=== PATIENT | female | born 1935 | race African-American/Black ===

== ENCOUNTER 2016-11-26 16:00 | Inpatient (IN) | payer MEDICAID, MEDICARE ==
[~2016-11-26] VITALS: Ht 165.1 cm; Wt 113.4 kg
[2016-11-26] MEDS ORDERED: Morphine Sulfate 4mg/ml Inj IVP ONE ×2 (16:15→19:30)
[2016-11-26] MEDS ORDERED: Nitroglycerin 2% oint pkt TOPIC ONE (16:15)
[2016-11-26] MEDS ORDERED: Labetalol 5mg/ml 20ml vial IV ONE (16:15)
[2016-11-26] MEDS ORDERED: Famotidine 20 MG/ 2ML VIAL IVP ONE (16:15)
--- NOTE | 2016-11-26 16:27 | Emergency Room Report ---
History of Present Illness General Chief Complaint: Chest Pain Source: Patient Present Illness HPI The patient presents with epigastric and chest pressure at its severe. It started last night around 2 AM. It was worse this morning. She took her usual medications in the morning which include aspirin. The pain is 8/9. It radiates towards her back. She feels weak with that. She's been having exertional symptoms in the past week. She denies fevers chills cough. She did vomit one time this morning and it looked like oil. There was no blood. She denies any diarrhea or melena. She also denies dysuria. She does have swelling in her legs is worse in the morning. She denies any knee pain or calf tenderness. This is never happened to her before. She's never had cardiac evaluation. Risk factors = hypertension. No smoke or DM. No family history. Allergies: Coded Allergies: No Known Allergies (Verified Allergy, Mild, 11/08/08) Patient History Past Medical History: see triage record Past Surgical History: hysterectomy Social History: Denies: alcohol use, smoking Social History Narrative Born in [facility] Reviewed Nursing Documentation: PMH: Agreed, PSxH: Agreed Nursing Documentation-PMH Hx Cardiac Problems: No Hx Hypertension: Yes Review of Systems All Other Systems: negative except mentioned in HPI Physical Exam Vital Signs Date Time Temp Pulse Resp B/P Pulse Ox O2 Delivery O2 Flow Rate FiO2 11/26/16 16:04 98.1 81 18 238/94 100 Room Air Sp02 EP Interpretation: reviewed, normal General Appearance: GCS 15, mild distress Head: normocephalic Eyes: bilateral eye PERRL, bilateral eye normal inspection ENT: moist mucus membranes Neck: supple Respiratory: chest non-tender, lungs clear, normal breath sounds Cardiovascular #1: systolic murmur - 3/6 holosystolic, edema - 1+ bilat Cardiovascular #2: 2+ radial (R) Gastrointestinal: normal inspection, normal bowel sounds, no mass, non- distended, no guarding, no rebound, tenderness - minimal epigastric, overweight Musculoskeletal: digits/nails normal, normal range of motion, no calf tenderness Neurologic: alert, oriented x3, grossly normal Psychiatric: mood/affect normal Skin: normal inspection, warm/dry Medical Decision Making Diagnostic Impression: Primary Impression: Acute pancreatitis Qualified Codes: K85.90 - Acute pancreatitis without necrosis or infection, unspecified Additional Impression: Chest pain Qualified Codes: R07.9 - Chest pain, unspecified ER Course Patient presents with severe epigastric and chest pain. She is hypertensive at this time. Differential includes acute microinfarction, acute coronary syndrome , aortic dissection, costochondritis, gastritis, pancreatitis amongst others. The pain is fairly severe at this time and we need to aggressively pursue this. She'll be evaluated with a chest x-ray, EKG and laboratory. In addition to the hypertension the possibility of an aneurysm a CT of the perform. My suspicion for pulmonary embolus as well and therefore an angiogram will not be performed. Her high blood pressure needs to be addressed urgently. Wide mediastinum on CXR. CTA negative for aneurism but ? pancreatitis. Lipase elevated. Improved but still with pain. Needs evaluation of pancreatitis and as this is initial onset, needs evaluation as to etiology. Blood pressure better. Admit tele Dr. Wyatt. Laboratory Tests Test 11/26/16 16:20 White Blood Count 8.9 K/UL (4.8-10.8) Red Blood Count 4.86 M/UL (4.20-5.40) Hemoglobin 15.5 G/DL (12.0-16.0) Hematocrit 46.2 % (37.0-47.0) Mean Corpuscular Volume 95 FL (80-99) Mean Corpuscular Hemoglobin 32.0 PG (27.0-31.0) H Mean Corpuscular Hemoglobin Concent 33.7 G/DL (32.0-36.0) Red Cell Distribution Width 12.9 % (11.6-14.8) Platelet Count 126 K/UL (150-450) L Mean Platelet Volume 11.7 FL (6.5-10.1) H Neutrophils (%) (Auto) 67.5 % (45.0-75.0) Lymphocytes (%) (Auto) 18.4 % (20.0-45.0) L Monocytes (%) (Auto) 12.3 % (1.0-10.0) H Eosinophils (%) (Auto) 1.2 % (0.0-3.0) Basophils (%) (Auto) 0.6 % (0.0-2.0) Prothrombin Time 11.1 SEC (9.30-11.50) Prothrombin Time INR 1.1 (0.9-1.1) PTT 26 SEC (23-33) Sodium Level 139 mEQ/L (135-145) Potassium Level 4.3 mEQ/L (3.4-4.9) Chloride Level 94 mEQ/L (98-107) L Carbon Dioxide Level 28 mEQ/L (20-30) Anion Gap 17 (5-15) H Blood Urea Nitrogen 11 mg/dL (7-23) Creatinine 0.9 mg/dL (0.5-0.9) Estimate Glomerular Filtration Rate mL/min (>60) Glucose Level 119 mg/dL (74-106) H Calcium Level 9.7 mg/dL (8.6-10.2) Total Bilirubin 0.6 mg/dL (0.0-1.2) Aspartate Amino Transferase (AST) 19 U/L (5-40) Alanine Aminotransferase (ALT) 8 U/L (3-33) Alkaline Phosphatase 212 U/L (35-104) H Total Creatine Kinase 147 U/L (26-140) H Troponin I < 0.30 ng/mL (<=0.30) Pro-B-Type Natriuretic Peptide 487 pg/mL (0-450) H Total Protein 7.9 g/dL (6.6-8.7) Albumin 4.2 g/dL (3.5-5.2) Globulin 3.7 g/dL Albumin/Globulin Ratio 1.1 (1.0-2.7) Lipase 664 U/L (< 60) H EKG Diagnostic Results Rate: normal Rhythm: NSR ST Segments: no acute changes - LAE, LVH Rhythm Strip Diag. Results EP Interpretation: yes Rhythm: NSR, no PVC's, no ectopy Chest X-Ray Diagnostic Results EP Interpretation: Yes Findings: no consolidation, no effusion, no pneumothorax, other - wide mediatinum, sl cardiolmegally Number of Views: 1 CT/MRI/US Diagnostic Results CT/MRI/US Diagnostic Results : Imaging Test Ordered: CTA abdomen/chest Impression Impression: No evidence of thoracic or abdominal aortic aneurysm or dissection No evidence of acute pulmonary embolus Right pulmonary arterial dilatation raises concern for pulmonary arterial hypertension Cardiomegaly Mild narrowing of the celiac axis, probably secondary to arcuate ligament compression, doubt significance 4.5 cm heavily calcified left renal mass. Suspect that this represents a chronic post inflammatory lesion, but further evaluation with ultrasound should be considered Irregularity of the pancreas with atrophy of the tail and ectasia of the pancreatic duct within the tail. Suspect related to chronic pancreatitis, component of acute pancreatitis cannot be excluded. Correlate with laboratory findings Colonic diverticulosis, without evidence of diverticulitis Small fat-containing umbilical hernia. Increased attenuation of contents raises possibility of inflammation Sclerosis of the sacrum and possibly the adjacent iliac bones, raises possibility of process such as Paget's disease Other findings as described, including degenerative spondylosis, posterior dependent pulmonary parenchymal atelectasis, small bilateral fat-containing Bochdalek hernias, probable liver cysts, old granulomatous disease within the spleen, evidence of prior hysterectomy Last Vital Signs Date Time Temp Pulse Resp B/P Pulse Ox O2 Delivery O2 Flow Rate FiO2 11/27/16 06:46 82 16 Room Air 11/27/16 04:00 97.2 132/72 96 Status: improved Disposition: ADMITTED INPATIENT Condition: Serious Maverick Chen M.D. Nov 26, 2016 16:27
[2016-11-26 16:40] VITALS: BP 230/91
[2016-11-26 16:48] LABS: BASOPHILS % (AUTO) 0.6 % (0.0-2.0); EOSINOPHILS % (AUTO) 1.2 % (0.0-3.0); LYMPHOCYTES % (AUTO) 18.4 % (20.0-45.0); MEAN CORPUSCULAR HGB CONC 33.7 G/DL (32.0-36.0); MEAN CORPUSCULAR VOLUME 95 FL (80-99); MEAN PLATELET VOLUME 11.7 FL (6.5-10.1); MONOCYTES % (AUTO) 12.3 % (1.0-10.0); NEUTROPHILS % (AUTO) 67.5 % (45.0-75.0); PLATELET COUNT 126 K/UL (150-450); RED BLOOD COUNT 4.86 M/UL (4.20-5.40); RED CELL DISTRIBUTION WIDTH 12.9 % (11.6-14.8); WHITE BLOOD COUNT 8.9 K/UL (4.8-10.8)
[2016-11-26 17:00] VITALS: BP 153/61
[2016-11-26 17:04] LABS: INR 1.1 (0.9-1.1); PROTHROMBIN TIME 11.1 SEC (9.30-11.50)
[2016-11-26 17:19] LABS: TROPONIN I < 0.30 ng/mL (<=0.30)
[2016-11-26 17:22] LABS: ALANINE AMINOTRANSFERASE 8 U/L (3-33); ALBUMIN/GLOBULIN RATIO 1.1 (1.0-2.7); ANION GAP 17 (5-15); ASPARTATE AMINO TRANSFERASE 19 U/L (5-40); CALCIUM 9.7 mg/dL (8.6-10.2); CARBON DIOXIDE 28 mEQ/L (20-30); CHLORIDE 94 mEQ/L (98-107); CREATININE 0.9 mg/dL (0.5-0.9); HEMOLYSIS 105; POTASSIUM 4.3 mEQ/L (3.4-4.9); SODIUM 139 mEQ/L (135-145); TOTAL PROTEIN 7.9 g/dL (6.6-8.7)
[2016-11-26 18:32] VITALS: BP 170/70
[2016-11-26] MEDS ORDERED: NKM (18:44)
[2016-11-26 19:55] VITALS: BP 143/53
[2016-11-26] MEDS ORDERED: Ketorolac 30mg Inj IV PRN (21:45)
[2016-11-26] MEDS ORDERED: DuoNeb 0.5-3(2.5)mg/3ml neb HHN PRN (21:45)
[2016-11-26] MEDS ORDERED: Diltiazem 25mg/5ml IV PRN (21:45)
[2016-11-26] MEDS ORDERED: Miralax 17gm pkt ORAL PRN (21:45)
[2016-11-26] MEDS ORDERED: Nitroglycerin Subl 0.4mg tab (Bottle Of 25) SL PRN (22:00)
[2016-11-26 22:03] VITALS: BP 162/80
[2016-11-27] VITALS (7 sets, daily range): BP systolic 132–183; BP diastolic 68–84
[2016-11-27] MEDS: Morphine Sulfate 2mg/ml Inj IVP PRN ×4 (05:22→18:29)
[2016-11-27 07:30] LABS: BASOPHILS % (AUTO) 0.5 % (0.0-2.0); EOSINOPHILS % (AUTO) 6.4 % (0.0-3.0); LYMPHOCYTES % (AUTO) 18.1 % (20.0-45.0); MEAN CORPUSCULAR HEMOGLOBIN 31.3 PG (27.0-31.0); MEAN CORPUSCULAR HGB CONC 31.7 G/DL (32.0-36.0); MEAN CORPUSCULAR VOLUME 99 FL (80-99); MEAN PLATELET VOLUME 10.5 FL (6.5-10.1); MONOCYTES % (AUTO) 13.6 % (1.0-10.0); NEUTROPHILS % (AUTO) 61.4 % (45.0-75.0); PLATELET COUNT 110 K/UL (150-450); RED BLOOD COUNT 4.49 M/UL (4.20-5.40); RED CELL DISTRIBUTION WIDTH 13.5 % (11.6-14.8); WHITE BLOOD COUNT 8.3 K/UL (4.8-10.8)
[2016-11-27 07:43] LABS: INR 1.1 (0.9-1.1); PROTHROMBIN TIME 11.7 SEC (9.30-11.50)
--- NOTE | 2016-11-27 08:04 | Cardiology Progress Note ---
Assessment/Plan Assessment/Plan epigastric pain radiating to the back pancreatitis etiology to be determined htn hx hyperlipidemia hx obeisty mild thrombocytopenia denies cp to me cannot find ekg to reviewed will reorder sinu with non spcific t wave changes trop amylase lipase lft consider gi evla ct performed no report yet available [id number] Objective Last 24 Hour Vital Signs Date Time Temp Pulse Resp B/P Pulse Ox O2 Delivery O2 Flow Rate FiO2 11/27/16 07:59 98.2 84 18 142/68 99 Room Air 11/27/16 06:46 82 16 Room Air 11/27/16 04:00 83 11/27/16 04:00 97.2 89 20 132/72 96 Room Air 11/27/16 00:00 78 11/27/16 00:00 97.7 80 20 146/84 93 Room Air 11/27/16 00:00 97.7 80 20 146/84 93 Room Air 11/26/16 22:03 97.8 78 20 162/80 93 Room Air 11/26/16 20:18 98.2 70 14 143/53 100 Room Air 11/26/16 19:55 98.2 70 14 143/53 100 Room Air 11/26/16 18:32 98.3 69 15 170/70 96 Room Air 11/26/16 17:05 98.1 11/26/16 17:01 70 16 Room Air 11/26/16 17:00 98.1 70 14 153/61 100 Room Air 11/26/16 16:40 98.3 90 15 230/91 100 Room Air 11/26/16 16:34 90 230/91 11/26/16 16:33 230/91 11/26/16 16:04 98.1 81 18 238/94 100 Room Air Intake and Output 11/26/16 11/27/16 19:00 07:00 Intake Total 150 ml Balance 150 ml Other 150 ml # Voids 2 Laboratory Tests Test 11/26/16 16:20 11/27/16 05:00 White Blood Count 8.9 K/UL (4.8-10.8) 8.3 K/UL (4.8-10.8) Red Blood Count 4.86 M/UL (4.20-5.40) 4.49 M/UL (4.20-5.40) Hemoglobin 15.5 G/DL (12.0-16.0) 14.1 G/DL (12.0-16.0) Hematocrit 46.2 % (37.0-47.0) 44.3 % (37.0-47.0) Mean Corpuscular Volume 95 FL (80-99) 99 FL (80-99) Mean Corpuscular Hemoglobin 32.0 PG (27.0-31.0) H 31.3 PG (27.0-31.0) H Mean Corpuscular Hemoglobin Concent 33.7 G/DL (32.0-36.0) 31.7 G/DL (32.0-36.0) L Red Cell Distribution Width 12.9 % (11.6-14.8) 13.5 % (11.6-14.8) Platelet Count 126 K/UL (150-450) L 110 K/UL (150-450) L Mean Platelet Volume 11.7 FL (6.5-10.1) H 10.5 FL (6.5-10.1) H Neutrophils (%) (Auto) 67.5 % (45.0-75.0) 61.4 % (45.0-75.0) Lymphocytes (%) (Auto) 18.4 % (20.0-45.0) L 18.1 % (20.0-45.0) L Monocytes (%) (Auto) 12.3 % (1.0-10.0) H 13.6 % (1.0-10.0) H Eosinophils (%) (Auto) 1.2 % (0.0-3.0) 6.4 % (0.0-3.0) H Basophils (%) (Auto) 0.6 % (0.0-2.0) 0.5 % (0.0-2.0) Prothrombin Time 11.1 SEC (9.30-11.50) 11.7 SEC (9.30-11.50) H Prothromb Time International Ratio 1.1 (0.9-1.1) 1.1 (0.9-1.1) Activated Partial Thromboplast Time 26 SEC (23-33) 27 SEC (23-33) Sodium Level 139 mEQ/L (135-145) Potassium Level 4.3 mEQ/L (3.4-4.9) Chloride Level 94 mEQ/L (98-107) L Carbon Dioxide Level 28 mEQ/L (20-30) Anion Gap 17 (5-15) H Blood Urea Nitrogen 11 mg/dL (7-23) Creatinine 0.9 mg/dL (0.5-0.9) Estimat Glomerular Filtration Rate mL/min (>60) Glucose Level 119 mg/dL (74-106) H Calcium Level 9.7 mg/dL (8.6-10.2) Total Bilirubin 0.6 mg/dL (0.0-1.2) Aspartate Amino Transf (AST/SGOT) 19 U/L (5-40) Alanine Aminotransferase (ALT/SGPT) 8 U/L (3-33) Alkaline Phosphatase 212 U/L (35-104) H Total Creatine Kinase 147 U/L (26-140) H Troponin I < 0.30 ng/mL (<=0.30) Pending Pro-B-Type Natriuretic Peptide 487 pg/mL (0-450) H Total Protein 7.9 g/dL (6.6-8.7) Albumin 4.2 g/dL (3.5-5.2) Globulin 3.7 g/dL Albumin/Globulin Ratio 1.1 (1.0-2.7) Lipase 664 U/L (< 60) H C-Reactive Protein, Quantitative Pending Triglycerides Level Pending Cholesterol Level Pending LDL Cholesterol Pending HDL Cholesterol Pending Cholesterol/HDL Ratio Pending Thyroid Stimulating Hormone (TSH) Pending ROBERTO ARVIZU Nov 27, 2016 08:04
[2016-11-27 08:09] LABS: CHOLESTEROL/HDL RATIO 4.6 (3.3-4.4); CRP QUANT 1.7 mg/dL (< 0.5)
[2016-11-27 08:12] LABS: THYROID STIMULATING HORMONE 1.54 uIU/mL (0.300-4.500)
[2016-11-27 08:26] LABS: TROPONIN I < 0.30 ng/mL (<=0.30)
[2016-11-27 08:27] LABS: ALANINE AMINOTRANSFERASE 5 U/L (3-33); ALBUMIN/GLOBULIN RATIO 0.9 (1.0-2.7); AMYLASE 222 U/L (10-110); ANION GAP 17 (5-15); ASPARTATE AMINO TRANSFERASE 11 U/L (5-40); CALCIUM 9.4 mg/dL (8.6-10.2); CARBON DIOXIDE 28 mEQ/L (20-30); CHLORIDE 95 mEQ/L (98-107); HEMOLYSIS 4; LIPASE 205 U/L (< 60); POTASSIUM 3.4 mEQ/L (3.4-4.9); SODIUM 140 mEQ/L (135-145); TOTAL PROTEIN 6.9 g/dL (6.6-8.7)
[2016-11-27] MEDS: Aspirin Baby 81mg ORAL SCH (08:44)
[2016-11-27] MEDS: Heparin 5000 units/ml inj SUBQ SCH ×2 (08:47→20:55)
[2016-11-27] MEDS ORDERED: Pneumococcal Vaccine 25mcg/0.5ml IM ONE (09:00)
[2016-11-27] MEDS ORDERED: Influenza Virus Vaccine 0.5ml IM ONE (09:00)
--- NOTE | 2016-11-27 11:06 | Diagnostic Imaging Report ---
Clinical Indication:Chest pain Technique: IV administration nonionic contrast. Arterial phase spiral acquisition obtained through the chest, abdomen and pelvis. Multiplanar reconstructions were generated. Total dose length product 1245 mGycm. CTDIvol(s) 8, 64, 18 mGy Comparison: None Findings: Thoracic aorta: There is no evidence of thoracic aortic aneurysm or dissection. There is variant anatomy of common origin of the right brachiocephalic and left common carotid artery. The main pulmonary artery is ectatic, and the right main pulmonary artery is dilated, the latter measuring 3 cm long axis dimension. The heart is enlarged, with four-chamber cardiomegaly. The exam was not protocoled for exclusion of pulmonary embolus, but the pulmonary arteries are fairly well-opacified and no filling defects to suggest acute pulmonary embolus are evident. Abdominal aorta: No evidence of abdominal aortic aneurysm or dissection demonstrated. There is mild narrowing of the celiac origin. This may be due to arcuate ligament compression. Is normal caliber distally. The superior mesenteric artery is patent without significant stenosis. There are multiple left renal arteries, at least 3. These appear to be patent, nonstenotic. There is a single right renal artery which appears to be patent, nonstenotic. The bilateral common iliac arteries are ectatic but not frankly aneurysmal. Thoracic nonvascular: The lungs demonstrate posterior dependent atelectatic changes. They are otherwise clear. No masses, infiltrates, effusions, or congestion. There are small fat-containing Bochdalek hernias bilaterally. No pericardial effusion is demonstrated. No mediastinal or hilar mass or adenopathy. The included thyroid is unremarkable. No axillary or chest wall mass or adenopathy. The bones demonstrate degenerative spondylosis changes. Abdominal pelvic nonvascular: The left kidney demonstrates atrophy of the upper pole, and demonstrates a mass occupying much of the upper pole which demonstrates rim and internal calcifications. This measures 4.5 cm long axis dimension. The right kidney demonstrates a cortical scar as well as subcentimeter low-attenuation lesion which is too small to characterize, most likely benign simple cortical cysts. The liver demonstrates a cyst in segment 4A, as well as subcentimeter low-attenuation lesions in segment 6 which are too small to characterize, most likely benign simple cysts. The gallbladder, bile ducts are unremarkable. There is irregularity to the pancreatic contour, particularly in the tail region, and there is suggestion of ectasia of the pancreatic duct in the tail. There may be some infiltration of the peripancreatic fat. The spleen contains a calcification in the upper pole. The adrenals are unremarkable. No retroperitoneal or mesenteric mass or adenopathy. No pelvic mass or adenopathy. The uterus is absent, presumably postsurgically. The colon demonstrates multiple diverticula. No evidence of diverticulitis. The appendix is not definitely demonstrated, but no findings to suggest acute appendicitis are evident. No free or loculated intraperitoneal air or fluid. There is a small fat-containing umbilical hernia. There is increased attenuation of the contents, raising possibility of inflammation. No small bowel distention. Distal esophagus, stomach, duodenum are unremarkable. The bones demonstrate degenerative spondylosis changes. There is sclerosis of the sacrum which is rather diffuse. There may be some slight sclerosis of the adjacent iliac bones, particular on the left. Impression: No evidence of thoracic or abdominal aortic aneurysm or dissection No evidence of acute pulmonary embolus Right pulmonary arterial dilatation raises concern for pulmonary arterial hypertension Cardiomegaly Mild narrowing of the celiac axis, probably secondary to arcuate ligament compression, doubt significance 4.5 cm heavily calcified lef -- t renal mass. Suspect that this represents a chronic post inflammatory lesion, but further evaluation with ultrasound should be considered Irregularity of the pancreas with atrophy of the tail and ectasia of the pancreatic duct within the tail. Suspect related to chronic pancreatitis, component of acute pancreatitis cannot be excluded. Correlate with laboratory findings Colonic diverticulosis, without evidence of diverticulitis Small fat-containing umbilical hernia. Increased attenuation of contents raises possibility of inflammation Sclerosis of the sacrum and possibly the adjacent iliac bones, raises possibility of process such as Paget's disease Other findings as described, including degenerative spondylosis, posterior dependent pulmonary parenchymal atelectasis, small bilateral fat-containing Bochdalek hernias, probable liver cysts, old granulomatous disease within the spleen, evidence of prior hysterectomy This agrees with the preliminary interpretation provided overnight by Dr. George The CT scanner at [facility] is accredited by the [employer] and the scans are performed using protocols designed to limit radiation exposure to as low as reasonably achievable to attain images of sufficient resolution adequate for diagnostic evaluation.
[2016-11-27] MEDS: Enalaprilat 2.5mg/2ml Inj IV PRN ×2 (11:20→21:03)
--- NOTE | 2016-11-27 12:28 | Diagnostic Imaging Report ---
Indication: Chest pain Technique: One view of the chest Comparison: 12/15/2010 Findings: The heart is upper limits of normal in size. Lungs and pleural spaces are clear. The aorta is tortuous and ectatic. Right paratracheal prominence likely reflects ectatic vasculature Impression: No acute process. Findings as noted
--- NOTE | 2016-11-27 13:10 | Consultation ---
History of Present Illness General Date patient seen: Nov 27, 2016 Chief Complaint: Chest Pain Referring physician: Dr. Rey Reason for Consultation: inpatient management Present Illness HPI 81 year old female with pmhx of hypertension, obesity presented with epigastric and chest pressure at its severe. It started last night around 2 AM yesterday. The pain radiates towards her back. She denies having exertional symptoms in the past week. She did vomit one time. She denies any diarrhea or melena. She also denies dysuria. She does have swelling in her legs is worse in the morning. she had some increased in pancreatic enzymes and admitted to telemetry for chest pain and pancreatitis. Allergies: Coded Allergies: No Known Allergies (Verified Allergy, Mild, 11/08/08) Medication History Scheduled No Known Medications* (NKM - No Known Medications*), 0 ., (Reported) Patient History Healthcare decision maker pt alert and oriented Resuscitation status Full Code Advanced Directive on File Review of Systems All Other Systems: negative except mentioned in HPI Physical Exam General Appearance: WD/WN Lines, tubes and drains: peripheral HEENT: normocephalic, atraumatic Neck: non-tender, normal alignment Respiratory/Chest: chest wall non-tender, lungs clear Cardiovascular/Chest: normal peripheral pulses, normal rate Abdomen: normal bowel sounds Genitourinary/Rectal: normal genital exam Last 24 Hour Vital Signs Date Time Temp Pulse Resp B/P Pulse Ox O2 Delivery O2 Flow Rate FiO2 11/27/16 11:22 98.1 82 18 178/81 97 Room Air 11/27/16 11:20 178/81 11/27/16 08:00 88 11/27/16 07:59 98.2 84 18 142/68 99 Room Air 11/27/16 06:46 82 16 Room Air 11/27/16 04:00 83 11/27/16 04:00 97.2 89 20 132/72 96 Room Air 11/27/16 00:00 78 11/27/16 00:00 97.7 80 20 146/84 93 Room Air 11/27/16 00:00 97.7 80 20 146/84 93 Room Air 11/26/16 22:03 97.8 78 20 162/80 93 Room Air 11/26/16 20:18 98.2 70 14 143/53 100 Room Air 11/26/16 19:55 98.2 70 14 143/53 100 Room Air 11/26/16 18:32 98.3 69 15 170/70 96 Room Air 11/26/16 17:05 98.1 11/26/16 17:01 70 16 Room Air 11/26/16 17:00 98.1 70 14 153/61 100 Room Air 11/26/16 16:40 98.3 90 15 230/91 100 Room Air 11/26/16 16:34 90 230/91 11/26/16 16:33 230/91 11/26/16 16:04 98.1 81 18 238/94 100 Room Air Intake and Output 11/26/16 11/27/16 19:00 07:00 Intake Total 150 ml Balance 150 ml Other 150 ml # Voids 2 Laboratory Tests Test 11/26/16 16:20 11/27/16 05:00 White Blood Count 8.9 K/UL (4.8-10.8) 8.3 K/UL (4.8-10.8) Red Blood Count 4.86 M/UL (4.20-5.40) 4.49 M/UL (4.20-5.40) Hemoglobin 15.5 G/DL (12.0-16.0) 14.1 G/DL (12.0-16.0) Hematocrit 46.2 % (37.0-47.0) 44.3 % (37.0-47.0) Mean Corpuscular Volume 95 FL (80-99) 99 FL (80-99) Mean Corpuscular Hemoglobin 32.0 PG (27.0-31.0) H 31.3 PG (27.0-31.0) H Mean Corpuscular Hemoglobin Concent 33.7 G/DL (32.0-36.0) 31.7 G/DL (32.0-36.0) L Red Cell Distribution Width 12.9 % (11.6-14.8) 13.5 % (11.6-14.8) Platelet Count 126 K/UL (150-450) L 110 K/UL (150-450) L Mean Platelet Volume 11.7 FL (6.5-10.1) H 10.5 FL (6.5-10.1) H Neutrophils (%) (Auto) 67.5 % (45.0-75.0) 61.4 % (45.0-75.0) Lymphocytes (%) (Auto) 18.4 % (20.0-45.0) L 18.1 % (20.0-45.0) L Monocytes (%) (Auto) 12.3 % (1.0-10.0) H 13.6 % (1.0-10.0) H Eosinophils (%) (Auto) 1.2 % (0.0-3.0) 6.4 % (0.0-3.0) H Basophils (%) (Auto) 0.6 % (0.0-2.0) 0.5 % (0.0-2.0) Prothrombin Time 11.1 SEC (9.30-11.50) 11.7 SEC (9.30-11.50) H Prothromb Time International Ratio 1.1 (0.9-1.1) 1.1 (0.9-1.1) Activated Partial Thromboplast Time 26 SEC (23-33) 27 SEC (23-33) Sodium Level 139 mEQ/L (135-145) 140 mEQ/L (135-145) Potassium Level 4.3 mEQ/L (3.4-4.9) 3.4 mEQ/L (3.4-4.9) Chloride Level 94 mEQ/L (98-107) L 95 mEQ/L (98-107) L Carbon Dioxide Level 28 mEQ/L (20-30) 28 mEQ/L (20-30) Anion Gap 17 (5-15) H 17 (5-15) H Blood Urea Nitrogen 11 mg/dL (7-23) 10 mg/dL (7-23) Creatinine 0.9 mg/dL (0.5-0.9) 1.0 mg/dL (0.5-0.9) H Estimat Glomerular Filtration Rate mL/min (>60) mL/min (>60) Glucose Level 119 mg/dL (74-106) H 104 mg/dL (74-106) Calcium Level 9.7 mg/dL (8.6-10.2) 9.4 mg/dL (8.6-10.2) Total Bilirubin 0.6 mg/dL (0.0-1.2) 0.5 mg/dL (0.0-1.2) Aspartate Amino Transf (AST/SGOT) 19 U/L (5-40) 11 U/L (5-40) Alanine Aminotransferase (ALT/SGPT) 8 U/L (3-33) 5 U/L (3-33) Alkaline Phosphatase 212 U/L (35-104) H 172 U/L (35-104) H Total Creatine Kinase 147 U/L (26-140) H Troponin I < 0.30 ng/mL (<=0.30) < 0.30 ng/mL (<=0.30) Pro-B-Type Natriuretic Peptide 487 pg/mL (0-450) H Total Protein 7.9 g/dL (6.6-8.7) 6.9 g/dL (6.6-8.7) Albumin 4.2 g/dL (3.5-5.2) 3.4 g/dL (3.5-5.2) L Globulin 3.7 g/dL 3.5 g/dL Albumin/Globulin Ratio 1.1 (1.0-2.7) 0.9 (1.0-2.7) L Lipase 664 U/L (< 60) H 205 U/L (< 60) H Gamma Glutamyl Transpeptidase 13 U/L (5-36) C-Reactive Protein, Quantitative 1.7 mg/dL (< 0.5) H Triglycerides Level 101 mg/dL (< 150) Cholesterol Level 220 mg/dL (< 200) H LDL Cholesterol 152 mg/dL (60-99) H HDL Cholesterol 48 mg/dL (> 60) Cholesterol/HDL Ratio 4.6 (3.3-4.4) H Amylase Level 222 U/L (10-110) H Thyroid Stimulating Hormone (TSH) 1.540 uIU/mL (0.300-4.500) Height (Feet): 5 Height (Inches): 5.00 Weight (Pounds): 250 Medications Current Medications Medications (Trade) Dose Ordered Sig/Demetrio Route PRN Reason Start Time Stop Time Status Last Admin Dose Admin Acetaminophen (Tylenol) 650 mg Q4H PRN ORAL T>100.5 11/26/16 21:45 12/26/16 21:44 11/27/16 11:50 Albuterol/ Ipratropium (DuoNeb 0.5-3(2.5)mg/3ml) 3 ml Q4H PRN HHN Shortness of Breath 11/26/16 21:45 12/01/16 21:44 Aspirin (ASA) 162 mg DAILY ORAL 11/27/16 09:00 12/27/16 08:59 11/27/16 08:44 Diltiazem HCl (Cardizem) 10 mg EVERY HOUR PRN IV heart rate more than 120, 11/26/16 21:45 12/26/16 21:44 Enalaprilat (Vasotec) 2.5 mg Q6H PRN IV sbp more than 160 11/26/16 21:45 12/26/16 21:44 11/27/16 11:20 Heparin Sodium (Porcine) (Heparin 5000 units/ml) 5,000 units EVERY 12 HOURS SUBQ 11/27/16 09:00 12/27/16 08:59 11/27/16 08:47 Morphine Sulfate (Morphine Sulfate) 2 mg Q4H PRN IVP Moderate Pain (Pain Scale 4-6) 11/27/16 12:00 12/04/16 11:59 11/27/16 12:10 Morphine Sulfate (Morphine Sulfate) 4 mg Q4H PRN IVP Severe Pain (Pain Scale 7-10) 11/27/16 12:00 12/04/16 11:59 Nitroglycerin (Ntg) 0.4 mg Q5MIN X 3 DOSES PRN SL Prn Chest Pain 11/26/16 22:00 12/26/16 21:59 Ondansetron HCl (Zofran) 4 mg Q6H PRN IVP Nausea & Vomiting 11/26/16 21:45 12/26/16 21:44 Pantoprazole (Protonix) 40 mg DAILY ORAL 11/27/16 09:00 12/27/16 08:59 11/27/16 08:44 Polyethylene Glycol (Miralax) 17 gm DAILYPRN PRN ORAL Constipation 11/26/16 21:45 12/26/16 21:44 Temazepam (Restoril) 15 mg HSPRN PRN ORAL Insomnia 11/26/16 21:45 12/03/16 21:44 Assessment/Plan Problem List: (1) Chest pain ICD Codes: R07.9 - Chest pain, unspecified SNOMED: 82551285 (2) ACS (acute coronary syndrome) ICD Codes: I24.9 - Acute ischemic heart disease, unspecified SNOMED: 622501898 (3) Costochondritis ICD Codes: M94.0 - Chondrocostal junction syndrome [Tietze] SNOMED: 22554497 (4) Acute pancreatitis ICD Codes: K85.90 - Acute pancreatitis without necrosis or infection, unspecified SNOMED: 532125263 Assessment/Plan NPO IV fluids cardiac work up f/u on lipase and amylase ELÍAS ALFREDO Nov 27, 2016 13:10
[2016-11-27] MEDS: D5 1/2NS w/KCl 20mEq 1,000 ML IV SCH (13:59)
--- NOTE | 2016-11-27 14:03 | GI Initial Consult Note ---
Jauregui,Julienne Roman N.P. 11/27/16 1403: History of Present Illness General Date patient seen: Nov 27, 2016 Time patient seen: 14:02 Reason for Hospitalization: Chest Pain Referring physician: Dr. Rey Reason for Consultation: inpatient management Present Illness HPI The patient presents with epigastric and chest pressure at its severe. It started last night around 2 AM. It was worse this morning. She took her usual medications in the morning which include aspirin. The pain is 8/9. It radiates towards her back. She feels weak with that. She denies having exertional symptoms in the past week. She denies fevers chills cough. She did vomit one time this morning and it looked like oral. There is no blood. She denies any diarrhea or melena. She also denies dysuria. She does have swelling in her legs is worse in the morning. She denies any knee pain or calf tenderness. GI CONSULT: HPI as noted above. GI consulted for abdominal pain 2/2 to pancreatitis. Pt seen on floor, awake A&Ox4 NAD c/o of 5/10 abdominal pain ( originally 10/10) to the epigastric region. She presents today with abdominal pain for approximately 3 days. C/o of emesis x 1 yesterday, denies any hematemesis or coffee grounds. First episode of abdominal pain. CBC unremarkable. Elevated lipase 600+. Elevated alkaline phos and hypoalbuminemia. PanCT reveals acute vs chronic pancreatitis, see full report below. Unknown history of endoscopic procedures. 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 Suspect that this represents a chronic post inflammatory lesion, but further evaluation with ultrasound should be considered Irregularity of the pancreas with atrophy of the tail and ectasia of the pancreatic duct within the tail. Suspect related to chronic pancreatitis, component of acute pancreatitis cannot be excluded. Correlate with laboratory findings Colonic diverticulosis, without evidence of diverticulitis Small fat-containing umbilical hernia. Increased attenuation of contents raises possibility of inflammation Sclerosis of the sacrum and possibly the adjacent iliac bones, raises possibility of process such as Paget's disease Other findings as described, including degenerative spondylosis, posterior dependent pulmonary parenchymal atelectasis, small bilateral fat-containing Bochdalek hernias, probable liver cysts, old granulomatous disease within the spleen, evidence of prior hysterectomy Home Meds Active Scripts Aspirin* (ASPIRIN*) 81 Mg Tab.chew, 162 MG ORAL DAILY for 30 Days, TAB Prov:ZARRABI,MIRALI 11/30/16 Amlodipine Besylate (Norvasc) 5 Mg Tablet, 5 MG ORAL Q12HR for 30 Days, TAB Prov:ZARRABI,MIRALI 11/30/16 Reported Medications Amlodipine Besylate (Norvasc) 10 Mg Tablet, 10 MG ORAL DAILY, TAB 11/30/16 No Known Medications* (NKM - No Known Medications*) ., 0 ., 0 Refills 11/26/16 Allergies: Coded Allergies: No Known Allergies (Verified Allergy, Mild, 11/08/08) Patient History History Provided By: Patient, Medical Record PMH Narrative Hx Cardiac Problems: No Hx Hypertension: Yes Social History: Denies: alcohol use, drug use, other, smoking Review of Systems All Other Systems: negative except mentioned in HPI Physical Exam Vital Signs Date Time Temp Pulse Resp B/P Pulse Ox O2 Delivery O2 Flow Rate FiO2 11/26/16 16:04 98.1 81 18 238/94 100 Room Air Labs Laboratory Tests Test 11/26/16 16:20 11/27/16 05:00 White Blood Count 8.9 K/UL (4.8-10.8) 8.3 K/UL (4.8-10.8) Red Blood Count 4.86 M/UL (4.20-5.40) 4.49 M/UL (4.20-5.40) Hemoglobin 15.5 G/DL (12.0-16.0) 14.1 G/DL (12.0-16.0) Hematocrit 46.2 % (37.0-47.0) 44.3 % (37.0-47.0) Mean Corpuscular Volume 95 FL (80-99) 99 FL (80-99) Mean Corpuscular Hemoglobin 32.0 PG (27.0-31.0) H 31.3 PG (27.0-31.0) H Mean Corpuscular Hemoglobin Concent 33.7 G/DL (32.0-36.0) 31.7 G/DL (32.0-36.0) L Red Cell Distribution Width 12.9 % (11.6-14.8) 13.5 % (11.6-14.8) Platelet Count 126 K/UL (150-450) L 110 K/UL (150-450) L Mean Platelet Volume 11.7 FL (6.5-10.1) H 10.5 FL (6.5-10.1) H Neutrophils (%) (Auto) 67.5 % (45.0-75.0) 61.4 % (45.0-75.0) Lymphocytes (%) (Auto) 18.4 % (20.0-45.0) L 18.1 % (20.0-45.0) L Monocytes (%) (Auto) 12.3 % (1.0-10.0) H 13.6 % (1.0-10.0) H Eosinophils (%) (Auto) 1.2 % (0.0-3.0) 6.4 % (0.0-3.0) H Basophils (%) (Auto) 0.6 % (0.0-2.0) 0.5 % (0.0-2.0) Prothrombin Time 11.1 SEC (9.30-11.50) 11.7 SEC (9.30-11.50) H Prothromb Time International Ratio 1.1 (0.9-1.1) 1.1 (0.9-1.1) Activated Partial Thromboplast Time 26 SEC (23-33) 27 SEC (23-33) Sodium Level 139 mEQ/L (135-145) 140 mEQ/L (135-145) Potassium Level 4.3 mEQ/L (3.4-4.9) 3.4 mEQ/L (3.4-4.9) Chloride Level 94 mEQ/L (98-107) L 95 mEQ/L (98-107) L Carbon Dioxide Level 28 mEQ/L (20-30) 28 mEQ/L (20-30) Anion Gap 17 (5-15) H 17 (5-15) H Blood Urea Nitrogen 11 mg/dL (7-23) 10 mg/dL (7-23) Creatinine 0.9 mg/dL (0.5-0.9) 1.0 mg/dL (0.5-0.9) H Estimat Glomerular Filtration Rate mL/min (>60) mL/min (>60) Glucose Level 119 mg/dL (74-106) H 104 mg/dL (74-106) Calcium Level 9.7 mg/dL (8.6-10.2) 9.4 mg/dL (8.6-10.2) Total Bilirubin 0.6 mg/dL (0.0-1.2) 0.5 mg/dL (0.0-1.2) Aspartate Amino Transf (AST/SGOT) 19 U/L (5-40) 11 U/L (5-40) Alanine Aminotransferase (ALT/SGPT) 8 U/L (3-33) 5 U/L (3-33) Alkaline Phosphatase 212 U/L (35-104) H 172 U/L (35-104) H Total Creatine Kinase 147 U/L (26-140) H Troponin I < 0.30 ng/mL (<=0.30) < 0.30 ng/mL (<=0.30) Pro-B-Type Natriuretic Peptide 487 pg/mL (0-450) H Total Protein 7.9 g/dL (6.6-8.7) 6.9 g/dL (6.6-8.7) Albumin 4.2 g/dL (3.5-5.2) 3.4 g/dL (3.5-5.2) L Globulin 3.7 g/dL 3.5 g/dL Albumin/Globulin Ratio 1.1 (1.0-2.7) 0.9 (1.0-2.7) L Lipase 664 U/L (< 60) H 205 U/L (< 60) H Gamma Glutamyl Transpeptidase 13 U/L (5-36) C-Reactive Protein, Quantitative 1.7 mg/dL (< 0.5) H Triglycerides Level 101 mg/dL (< 150) Cholesterol Level 220 mg/dL (< 200) H LDL Cholesterol 152 mg/dL (60-99) H HDL Cholesterol 48 mg/dL (> 60) Cholesterol/HDL Ratio 4.6 (3.3-4.4) H Amylase Level 222 U/L (10-110) H Thyroid Stimulating Hormone (TSH) 1.540 uIU/mL (0.300-4.500) General Appearance: well appearing, no apparent distress, alert Head: normocephalic EENT: normal ENT inspection Neck: supple Respiratory: normal breath sounds, no respiratory distress Cardiovascular: normal rate Gastrointestinal: normal inspection, non tender, soft Neurologic: normal inspection, alert, oriented x3, responsive Psychiatric: normal inspection Skin: normal inspection, normal color, no rash, warm/dry Lymphatic: normal inspection, no adenopathy Current Medications Current Medications Medications (Trade) Dose Ordered Sig/Demetrio Route PRN Reason Start Time Stop Time Status Last Admin Dose Admin Acetaminophen (Tylenol) 650 mg Q4H PRN ORAL T>100.5 11/26/16 21:45 12/26/16 21:44 11/27/16 11:50 Albuterol/ Ipratropium (DuoNeb 0.5-3(2.5)mg/3ml) 3 ml Q4H PRN HHN Shortness of Breath 11/26/16 21:45 12/01/16 21:44 Aspirin (ASA) 162 mg DAILY ORAL 11/27/16 09:00 12/27/16 08:59 11/27/16 08:44 Dextrose/ Electrolytes (D5 0.45%NS W/ KCl 20mEq) 1,000 ml @ 75 mls/hr [id number] IV 11/27/16 14:00 12/27/16 13:59 11/27/16 13:59 Diltiazem HCl (Cardizem) 10 mg EVERY HOUR PRN IV heart rate more than 120, 11/26/16 21:45 12/26/16 21:44 Enalaprilat (Vasotec) 2.5 mg Q6H PRN IV sbp more than 160 11/26/16 21:45 12/26/16 21:44 11/27/16 11:20 Heparin Sodium (Porcine) (Heparin 5000 units/ml) 5,000 units EVERY 12 HOURS SUBQ 11/27/16 09:00 12/27/16 08:59 11/27/16 08:47 Morphine Sulfate (Morphine Sulfate) 4 mg Q4H PRN IVP Severe Pain (Pain Scale 7-10) 11/27/16 12:00 12/04/16 11:59 Morphine Sulfate 2 mg 2 mg Q4H PRN IVP Moderate Pain (Pain Scale 4-6) 11/27/16 12:00 12/04/16 11:59 11/27/16 12:10 Nitroglycerin (Ntg) 0.4 mg Q5MIN X 3 DOSES PRN SL Prn Chest Pain 11/26/16 22:00 12/26/16 21:59 Ondansetron HCl (Zofran) 4 mg Q6H PRN IVP Nausea & Vomiting 11/26/16 21:45 12/26/16 21:44 Pantoprazole (Protonix) 40 mg DAILY ORAL 11/27/16 09:00 12/27/16 08:59 11/27/16 08:44 Polyethylene Glycol (Miralax) 17 gm DAILYPRN PRN ORAL Constipation 11/26/16 21:45 12/26/16 21:44 Temazepam (Restoril) 15 mg HSPRN PRN ORAL Insomnia 11/26/16 21:45 12/03/16 21:44 GI: Plan Problems: (1) Alkaline phosphatase elevation (2) Hypoalbuminemia (3) Morbidly obese (4) Acute pancreatitis Plan panCT reviewed >> Irregularity of the pancreas with atrophy of the tail and ectasia of the pancreatic duct within the tail. Suspect related to chronic pancreatitis, component of acute pancreatitis cannot be excluded. bowel rest >> maintain NPO + IVF's adv diet as tolerated zofran prn pain mgmt abx monitor lipase levels ppi fu labs Discussed with Dr. Allison. Thank you for referring this patient, we will follow. ISIDRO ALLISON 12/02/16 1223: History of Present Illness General Reason for Hospitalization: Chest Pain Present Illness Home Meds Active Scripts Aspirin* (ASPIRIN*) 81 Mg Tab.chew, 162 MG ORAL DAILY for 30 Days, TAB Prov:ZARRABI,MIRALI 11/30/16 Amlodipine Besylate (Norvasc) 5 Mg Tablet, 5 MG ORAL Q12HR for 30 Days, TAB Prov:ZARRABI,MIRALI 11/30/16 Reported Medications Amlodipine Besylate (Norvasc) 10 Mg Tablet, 10 MG ORAL DAILY, TAB 11/30/16 No Known Medications* (NKM - No Known Medications*) ., 0 ., 0 Refills 11/26/16 Allergies: Coded Allergies: No Known Allergies (Verified Allergy, Mild, 11/08/08) GI: Plan Plan The patient was seen and examined at bedside and all new and available data was reviewed in the patients chart. I agree with the above findings, impression and plan. (Patient seen earlier today. Signature stamp does not reflect patient encounter time.). -Amrita Peterson MDh Roman Palacios Nov 27, 2016 14:03 ISIDRO ALLISON Dec 02, 2016 12:23
[2016-11-27] MEDS: Morphine Sulfate 4mg/ml Inj IVP PRN ×2 (16:27→22:54)
--- NOTE | 2016-11-27 17:24 | History & Physical ---
History and Physical History & Physicial Dictated for Int Med-Dr Wyatt no. [id number]. SAMY MOSHER Nov 27, 2016 17:24
--- NOTE | 2016-11-27 21:18 | Consultation ---
DATE OF CONSULTATION: 11/27/2016 CARDIOLOGY CONSULTATION REASON FOR CONSULTATION: Basically abdominal pain, it sounds like. HISTORY OF PRESENT ILLNESS: This is an elderly female who presented to the emergency room, I guess yesterday afternoon, epigastric pain is what she came in with, the pain goes straight through to her back. It has been like that since yesterday. She did vomit on one occasion. When she came to the emergency room, she was also complaining at the same time that she has pressure in her chest but on my questioning she denies any pain, it is only in her epigastric area and the right side of her abdomen that radiates to her back. She did take some aspirin apparently. She did not feel good and she finally presented to the emergency room. She does not have any PND or orthopnea. No palpitations. No dizziness or lightheadedness. No pain, pressure or tightness in her chest at this time and she does not have any vomiting of blood. She does not have any bloody stools or black stools. PAST MEDICAL HISTORY: Positive for high cholesterol and high blood pressure, both of which she stopped taking medication approximately six months ago, but she has taken some herbal material. She denies any heart attack, cancer, stroke, hepatitis, tuberculosis, asthma, or emphysema. No ulcers. No kidney problems, liver problems, thyroid problems, anemia, or arthritis. ALLERGIES: She is not allergic to any medication. SOCIAL HISTORY: She does not smoke. Does not drink alcoholic beverages. No drug use. REVIEW OF SYSTEMS: Genitourinary: Negative. Pulmonary: Negative, but she has had a cold recently. Constitutional: Negative. Neurologic: Negative. PHYSICAL EXAMINATION: GENERAL: An elderly female in no apparent respiratory distress. NECK: Supple. No jugular venous distention. LUNGS: Clear to auscultation and percussion. CARDIAC: S1 is normal. S2 is normal. Regular rate and rhythm. She does have a systolic ejection murmur in the aortic band. ABDOMEN: Soft. There is tenderness in the epigastric area to palpation on the right side of the abdomen as well. There is no guarding. No rigidity. No rebound tenderness. EXTREMITIES: No clubbing, cyanosis, nor is there any edema. NEUROLOGIC: She is awake, alert, and responsive, in no apparent distress. LABORATORY AND DIAGNOSTIC DATA: Laboratory values, white count of 8.2 with hemoglobin 14.1, and platelet count of 110,000 down from 126,000 previously yesterday. Sodium 139, potassium 4.3, chloride 94, bicarbonate 28, BUN 11, creatinine 0.6, and glucose of 119. Alkaline phosphatase is 214. CK of 147. Troponins negative on two separate occasions. Lipase of 664. There is no EKG for me to review unfortunately and I am not able to locate the EKG or any other laboratories. Because of the hypertension, the emergency physician did order a CT scan, apparently minimal reading available here shows widened mediastinum, but CTA was negative for an aneurysm, but questionably positive for pancreatitis. Lipase was elevated and the patient was admitted to the hospital. The emergency room physician's note indicates that the EKG by them shows no ST-segment changes, left atrial enlargement, and left ventricular hypertrophy. Chest x-ray, no consolidation, no pleural effusion, no pneumothorax, widening mediastinum, and slight cardiomegaly, this is per the emergency room physician's note, I am not able to review the x-rays. ASSESSMENT AND PLAN: 1. Epigastric pain, possibilities include cholecystitis, pancreatitis, and gastritis. 2. Hypertension history. 3. Hyperlipidemia. 4. Obesity. 5. Mild thrombocytopenia. Dr. Xie, this patient was seen in cardiac consultation and signs and symptoms basically point towards the gastrointestinal system with possibility of pancreatitis as a high likelihood in light of the significantly elevated lipase. I will recommend keeping the patient NPO and consider gastrointestinal evaluation and further testing. She has already had a CT scan. Unfortunately, the CT report is not available but maybe would shed light on the possibility of gallbladder problems once the report is available. I have ordered an EKG to be performed. I will repeat the cardiac enzymes as a matter of routine in light of the fact that she has had the complaint of chest pressure when she came into the emergency room, but again she denies those symptoms to me at this time. Shant Sr M.D. DR: MYRIAM JOB#: [id number] CC:
[2016-11-27 21:39] LABS: TROPONIN I < 0.30 ng/mL (<=0.30)
--- NOTE | 2016-11-27 21:49 | History and Physical Report ---
DATE OF ADMISSION: 11/26/2016 CHIEF COMPLAINT: The patient is an 81-year-old female, who presents with chief complaint of epigastric pain. HISTORY OF PRESENT ILLNESS: Began on Friday, November 25, 2016. The patient began to experience epigastric pain. The patient states that the pain radiates to her chest. The patient states that the pain was constant. The patient presented to [facility]. The patient was found to have acute pancreatitis. The patient was admitted for acute pancreatitis to rule out gallstone pancreatitis. PAST MEDICAL HISTORY: Significant for, 1. Hypertension. 2. Hypercholesterolemia. PAST SURGICAL HISTORY: Significant for total abdominal hysterectomy. CURRENT MEDICATIONS: 1. An unknown antihypertensive medication. 2. An unknown anti-lipid medication. ALLERGIES: No known drug allergies. SOCIAL HISTORY: The patient is a and lives with her grown daughter, who was present during the interview. The patient denies tobacco or alcohol use. REVIEW OF SYSTEMS: Constitutional: The patient denies weight loss or weight gain. The patient denies fevers or chills. HEENT: The patient denies ear or throat pain. Cardiovascular: The patient denies palpitations and chest pain. Chest: The patient denies palpitations. The patient admits to chest pain as above. Abdomen: The patient complains of epigastric pain as above. The patient denies nausea, vomiting, diarrhea, or constipation. Genitourinary: The patient denies dysuria or increased frequency of urination. Neuromuscular: The patient denies seizures or generalized weakness. PHYSICAL EXAMINATION: VITAL SIGNS: Temperature 98.1 degrees, respirations 18, pulse 82, and blood pressure 170/81. GENERAL: The patient is well-developed, well-nourished, slightly obese, female, in no apparent distress. HEENT: Eyes, pupils are equal and responsive to light and accommodation. Extraocular movements are intact. NECK: Supple without lymphadenopathy. CHEST: Lungs are clear to auscultation bilaterally without wheezes or rales. CARDIOVASCULAR: Regular rhythm and rate. S1 and S2 are normal without murmurs, rubs, or gallops. ABDOMEN: Soft and distended with decreased bowel sounds. There is pain to palpation in the bilateral upper quadrants. There is voluntary guarding noted. There is no rebound noted. EXTREMITIES: Negative for clubbing, cyanosis, or edema. RECTAL: Refused. GENITALIA: Refused. NEUROLOGICAL: Cranial nerves II through XII are grossly intact without focal deficits. Motor strength is 5/5 bilaterally. Deep tendon reflexes are 2+ plantar. LABORATORY STUDIES: WBC 8.9, hemoglobin 15.5, hematocrit 46.3, and platelets 126,000. Sodium 140, potassium 3.4, chloride 95, CO2 28, BUN 10, creatinine 1.0, and glucose 104. Amylase elevated at 122. Lipase elevated at 664. ASSESSMENT: This is an 81-year-old female. 1. Epigastric pain. 2. Acute pancreatitis. 3. Hypertension. 4. Hypercholesterolemia. TREATMENT: 1. Epigastric pain/acute pancreatitis. A Gastroenterology consultation was obtained with Dr. Jacky Schwartz. A CT scan of the abdomen is pending. We will follow recommendations of GI. 2. Chest pain. A Cardiology consultation was obtained with Dr. Shant Sr. 3. Hypercholesterolemia. The patient is currently NPO. The patient will be started on Lipitor. 4. Hypertension. The patient is currently NPO. The patient will be started empirically on intravenous metoprolol. Michele Rey M.D. DR: ELIO JOB#: [id number] CC:
[2016-11-28] VITALS (7 sets, daily range): BP systolic 144–174; BP diastolic 86–105
--- NOTE | 2016-11-28 02:57 | Cardiology Report ---
APPROVED REPORT EKG Measurement Heart [id number] Sinus rhythm with 1st degree AV block Possible Left atrial enlargement Left ventricular hypertrophy Nonspecific T wave abnormality Abnormal ECG
--- NOTE | 2016-11-28 03:02 | Cardiology Report ---
APPROVED REPORT EKG Measurement Heart [id number] Normal sinus rhythm Possible Left atrial enlargement Left ventricular hypertrophy Abnormal ECG
[2016-11-28] MEDS: Morphine Sulfate 4mg/ml Inj IVP PRN ×2 (05:35→09:52)
[2016-11-28] MEDS: D5 1/2NS w/KCl 20mEq 1,000 ML IV SCH ×2 (05:36→16:54)
[2016-11-28 07:19] LABS: BASOPHILS % (AUTO) 0.6 % (0.0-2.0); EOSINOPHILS % (AUTO) 3.1 % (0.0-3.0); LYMPHOCYTES % (AUTO) 8.7 % (20.0-45.0); MEAN CORPUSCULAR HEMOGLOBIN 31.6 PG (27.0-31.0); MEAN CORPUSCULAR HGB CONC 32.2 G/DL (32.0-36.0); MEAN CORPUSCULAR VOLUME 98 FL (80-99); MEAN PLATELET VOLUME 12.4 FL (6.5-10.1); MONOCYTES % (AUTO) 13.4 % (1.0-10.0); NEUTROPHILS % (AUTO) 74.3 % (45.0-75.0); PLATELET COUNT 120 K/UL (150-450); RED BLOOD COUNT 4.44 M/UL (4.20-5.40); RED CELL DISTRIBUTION WIDTH 13.3 % (11.6-14.8); WHITE BLOOD COUNT 16.1 K/UL (4.8-10.8)
[2016-11-28 07:38] LABS: ALANINE AMINOTRANSFERASE 6 U/L (3-33); ALBUMIN/GLOBULIN RATIO 0.7 (1.0-2.7); ANION GAP 14 (5-15); ASPARTATE AMINO TRANSFERASE 12 U/L (5-40); CALCIUM 9.2 mg/dL (8.6-10.2); CARBON DIOXIDE 27 mEQ/L (20-30); CHLORIDE 98 mEQ/L (98-107); CREATININE 0.9 mg/dL (0.5-0.9); HEMOLYSIS 2; POTASSIUM 4.2 mEQ/L (3.4-4.9); SODIUM 139 mEQ/L (135-145)
[2016-11-28 08:23] LABS: TROPONIN I < 0.30 ng/mL (<=0.30)
[2016-11-28] MEDS: Aspirin Baby 81mg ORAL SCH (08:30)
[2016-11-28] MEDS: Heparin 5000 units/ml inj SUBQ SCH ×2 (08:31→20:21)
[2016-11-28] MEDS ORDERED: Pantoprazole Inj IVP SCH (09:00)
--- NOTE | 2016-11-28 10:28 | Cardiology Progress Note ---
Assessment/Plan Assessment/Plan 1. Epigastric pain, possibilities include cholecystitis, pancreatitis, and gastritis. 2. Hypertension history. 3. Hyperlipidemia. 4. Obesity. 5. Mild thrombocytopenia. 6. Colonic diverticulosis, without evidence of diverticulitis 7. Small fat-containing umbilical hernia. 8. Sclerosis of the sacrum and possibly the adjacent iliac bones, Paget's disease feels alto better ct result reviewed all trop neg ekg neg prelim echo neg lipase improved , sx improved awiat gi input bp is elevated needs antihyerptensive started on norvasc Subjective Cardiovascular: Denies: chest pain, lightheadedness, palpitations Respiratory: Denies: shortness of breath Gastrointestinal/Abdominal: Reports: abdominal pain - much better Genitourinary: Denies: burning Objective Last 24 Hour Vital Signs Date Time Temp Pulse Resp B/P Pulse Ox O2 Delivery O2 Flow Rate FiO2 11/28/16 08:30 90 154/89 11/28/16 08:08 88 11/28/16 08:05 97.7 90 20 154/89 99 Nasal Cannula 2.0 11/28/16 06:38 91 15 Nasal Cannula 2.0 11/28/16 04:01 98.8 110 20 144/89 96 Room Air 11/28/16 04:00 106 11/28/16 00:30 156/98 11/28/16 00:04 98.8 89 19 174/86 94 Room Air 11/28/16 00:00 88 11/27/16 23:24 97.9 11/27/16 21:03 168/79 11/27/16 20:05 83 14 Room Air 11/27/16 20:00 97.9 80 20 168/79 91 Room Air 11/27/16 20:00 79 11/27/16 18:59 97.9 11/27/16 16:00 98.1 76 18 183/76 93 Room Air 11/27/16 16:00 74 11/27/16 12:00 76 11/27/16 11:50 90 136/74 11/27/16 11:22 98.1 82 18 178/81 97 Room Air 11/27/16 11:20 178/81 General Appearance: no apparent distress, alert, obese Neck: no JVD Cardiovascular: normal rate, regular rhythm Respiratory/Chest: lungs clear, normal breath sounds, no respiratory distress Abdomen: normal bowel sounds, non tender, soft Extremities: no swelling Intake and Output 11/27/16 11/28/16 19:00 07:00 Intake Total 175 ml 750 ml Balance 175 ml 750 ml Intake Oral 100 ml 120 ml IV Total 75 ml 630 ml # Voids 2 2 Laboratory Tests Test 11/27/16 21:20 11/28/16 06:20 Troponin I < 0.30 ng/mL (<=0.30) < 0.30 ng/mL (<=0.30) White Blood Count 16.1 K/UL (4.8-10.8) #H Red Blood Count 4.44 M/UL (4.20-5.40) Hemoglobin 14.0 G/DL (12.0-16.0) Hematocrit 43.6 % (37.0-47.0) Mean Corpuscular Volume 98 FL (80-99) Mean Corpuscular Hemoglobin 31.6 PG (27.0-31.0) H Mean Corpuscular Hemoglobin Concent 32.2 G/DL (32.0-36.0) Red Cell Distribution Width 13.3 % (11.6-14.8) Platelet Count 120 K/UL (150-450) L Mean Platelet Volume 12.4 FL (6.5-10.1) H Neutrophils (%) (Auto) 74.3 % (45.0-75.0) Lymphocytes (%) (Auto) 8.7 % (20.0-45.0) L Monocytes (%) (Auto) 13.4 % (1.0-10.0) H Eosinophils (%) (Auto) 3.1 % (0.0-3.0) H Basophils (%) (Auto) 0.6 % (0.0-2.0) Sodium Level 139 mEQ/L (135-145) Potassium Level 4.2 mEQ/L (3.4-4.9) Chloride Level 98 mEQ/L (98-107) Carbon Dioxide Level 27 mEQ/L (20-30) Anion Gap 14 (5-15) Blood Urea Nitrogen 10 mg/dL (7-23) Creatinine 0.9 mg/dL (0.5-0.9) Estimat Glomerular Filtration Rate mL/min (>60) Glucose Level 136 mg/dL (74-106) H Calcium Level 9.2 mg/dL (8.6-10.2) Total Bilirubin 0.5 mg/dL (0.0-1.2) Aspartate Amino Transf (AST/SGOT) 12 U/L (5-40) Alanine Aminotransferase (ALT/SGPT) 6 U/L (3-33) Alkaline Phosphatase 168 U/L (35-104) H Total Protein 7.0 g/dL (6.6-8.7) Albumin 3.1 g/dL (3.5-5.2) L Globulin 3.9 g/dL Albumin/Globulin Ratio 0.7 (1.0-2.7) L Lipase 49 U/L (< 60) ROBERTO ARVIZU Nov 28, 2016 10:28
--- NOTE | 2016-11-28 11:18 | Pulmonology Progress Note ---
Assessment/Plan Problems: (1) Acute pancreatitis (2) Cholangitis (3) Costochondritis (4) ACS (acute coronary syndrome) Assessment/Plan abdominal US GI evaluation ABx because of rising wbc ( afebrile) med/surg Subjective ROS Limited/Unobtainable: No Interval Events: less abdominal pain Allergies: Coded Allergies: No Known Allergies (Verified Allergy, Mild, 11/08/08) Objective Last 24 Hour Vital Signs Date Time Temp Pulse Resp B/P Pulse Ox O2 Delivery O2 Flow Rate FiO2 11/28/16 08:30 90 154/89 11/28/16 08:08 88 11/28/16 08:05 97.7 90 20 154/89 99 Nasal Cannula 2.0 11/28/16 06:38 91 15 Nasal Cannula 2.0 11/28/16 04:01 98.8 110 20 144/89 96 Room Air 11/28/16 04:00 106 11/28/16 00:30 156/98 11/28/16 00:04 98.8 89 19 174/86 94 Room Air 11/28/16 00:00 88 11/27/16 23:24 97.9 11/27/16 21:03 168/79 11/27/16 20:05 83 14 Room Air 11/27/16 20:00 97.9 80 20 168/79 91 Room Air 11/27/16 20:00 79 11/27/16 18:59 97.9 11/27/16 16:00 98.1 76 18 183/76 93 Room Air 11/27/16 16:00 74 11/27/16 12:00 76 11/27/16 11:50 90 136/74 11/27/16 11:22 98.1 82 18 178/81 97 Room Air 11/27/16 11:20 178/81 Intake and Output 11/27/16 11/28/16 19:00 07:00 Intake Total 175 ml 750 ml Balance 175 ml 750 ml Intake Oral 100 ml 120 ml IV Total 75 ml 630 ml # Voids 2 2 General Appearance: WD/WN HEENT: normocephalic, atraumatic Respiratory/Chest: chest wall non-tender, lungs clear Cardiovascular: normal peripheral pulses, normal rate Abdomen: normal bowel sounds, soft, non tender Laboratory Tests 11/27/16 21:20: Troponin I < 0.30 11/28/16 06:20: Troponin I < 0.30, White Blood Count 16.1#H, Red Blood Count 4.44, Hemoglobin 14.0, Hematocrit 43.6, Mean Corpuscular Volume 98, Mean Corpuscular Hemoglobin 31.6H, Mean Corpuscular Hemoglobin Concent 32.2, Red Cell Distribution Width 13.3, Platelet Count 120L, Mean Platelet Volume 12.4H, Neutrophils (%) (Auto) 74.3, Lymphocytes (%) (Auto) 8.7L, Monocytes (%) (Auto) 13.4H, Eosinophils (%) ( Auto) 3.1H, Basophils (%) (Auto) 0.6, Sodium Level 139, Potassium Level 4.2, Chloride Level 98, Carbon Dioxide Level 27, Anion Gap 14, Blood Urea Nitrogen 10 , Creatinine 0.9, Estimat Glomerular Filtration Rate , Glucose Level 136H, Calcium Level 9.2, Total Bilirubin 0.5, Aspartate Amino Transf (AST/SGOT) 12, Alanine Aminotransferase (ALT/SGPT) 6, Alkaline Phosphatase 168H, Total Protein 7.0, Albumin 3.1L, Globulin 3.9, Albumin/Globulin Ratio 0.7L, Lipase 49 Current Medications Medications (Trade) Dose Ordered Sig/Demetrio Route PRN Reason Start Time Stop Time Status Last Admin Dose Admin Acetaminophen (Tylenol) 650 mg Q4H PRN ORAL T>100.5 11/26/16 21:45 12/26/16 21:44 11/27/16 11:50 Albuterol/ Ipratropium (DuoNeb 0.5-3(2.5)mg/3ml) 3 ml Q4H PRN HHN Shortness of Breath 11/26/16 21:45 12/01/16 21:44 Amlodipine Besylate (Norvasc) 2.5 mg DAILY ORAL 11/28/16 09:00 12/28/16 08:59 11/28/16 08:30 Aspirin (ASA) 162 mg DAILY ORAL 11/27/16 09:00 12/27/16 08:59 11/28/16 08:30 Dextrose/ Electrolytes (D5 0.45%NS W/ KCl 20mEq) 1,000 ml @ 75 mls/hr [id number] IV 11/27/16 14:00 12/27/16 13:59 11/28/16 05:36 Diltiazem HCl (Cardizem) 10 mg EVERY HOUR PRN IV heart rate more than 120, 11/26/16 21:45 12/26/16 21:44 Enalaprilat (Vasotec) 2.5 mg Q6H PRN IV sbp more than 160 11/26/16 21:45 12/26/16 21:44 11/27/16 21:03 Heparin Sodium (Porcine) (Heparin 5000 units/ml) 5,000 units EVERY 12 HOURS SUBQ 11/27/16 09:00 12/27/16 08:59 11/28/16 08:31 Morphine Sulfate (Morphine Sulfate) 4 mg Q4H PRN IVP Severe Pain (Pain Scale 7-10) 11/27/16 12:00 12/04/16 11:59 11/28/16 09:52 Morphine Sulfate 2 mg 2 mg Q4H PRN IVP Moderate Pain (Pain Scale 4-6) 11/27/16 12:00 12/04/16 11:59 11/27/16 18:29 Nitroglycerin (Ntg) 0.4 mg Q5MIN X 3 DOSES PRN SL Prn Chest Pain 11/26/16 22:00 12/26/16 21:59 Ondansetron HCl (Zofran) 4 mg Q6H PRN IVP Nausea & Vomiting 11/26/16 21:45 12/26/16 21:44 Pantoprazole (Protonix) 40 mg DAILY IVP 11/28/16 09:00 12/28/16 08:59 11/28/16 08:30 Polyethylene Glycol (Miralax) 17 gm DAILYPRN PRN ORAL Constipation 11/26/16 21:45 12/26/16 21:44 Temazepam (Restoril) 15 mg HSPRN PRN ORAL Insomnia 11/26/16 21:45 12/03/16 21:44 ELÍAS ALFREDO Nov 28, 2016 11:18
[2016-11-28] MEDS: Enalaprilat 2.5mg/2ml Inj IV PRN (12:02)
--- NOTE | 2016-11-28 12:29 | Internal Med Progress Note ---
Subjective Date of Service: Nov 28, 2016 Physician Name Samy Rey Attending Physician Edinson Wyatt MD Current Medications Medications (Trade) Dose Ordered Sig/Demetrio Route PRN Reason Start Time Stop Time Status Last Admin Dose Admin Acetaminophen (Tylenol) 650 mg Q4H PRN ORAL T>100.5 11/28/16 13:45 12/28/16 13:44 UNV Albuterol/ Ipratropium (DuoNeb 0.5-3(2.5)mg/3ml) 3 ml Q4H PRN HHN Shortness of Breath 11/28/16 13:45 12/03/16 13:44 UNV Amlodipine Besylate (Norvasc) 2.5 mg DAILY ORAL 11/29/16 09:00 12/29/16 08:59 UNV Aspirin (ASA) 162 mg DAILY ORAL 11/29/16 09:00 12/29/16 08:59 UNV Dextrose/ Electrolytes 1,000 ml @ 75 mls/hr [id number] IV 11/28/16 12:30 12/28/16 12:29 UNV Diltiazem HCl (Cardizem) 10 mg EVERY HOUR PRN IV heart rate more than 120, 11/28/16 13:00 12/28/16 12:59 UNV Enalaprilat (Vasotec) 2.5 mg Q6H PRN IV sbp more than 160 11/28/16 15:45 12/28/16 15:44 UNV Heparin Sodium (Porcine) (Heparin 5000 units/ml) 5,000 units EVERY 12 HOURS SUBQ 11/28/16 21:00 12/28/16 20:59 UNV Morphine Sulfate (Morphine Sulfate) 2 mg Q4H PRN IVP Moderate Pain (Pain Scale 4-6) 11/28/16 16:00 12/05/16 15:59 UNV Morphine Sulfate (Morphine Sulfate) 4 mg Q4H PRN IVP Severe Pain (Pain Scale 7-10) 11/28/16 16:00 12/05/16 15:59 UNV Nitroglycerin (Ntg) 0.4 mg Q5MIN X 3 DOSES PRN SL Prn Chest Pain 11/28/16 12:30 12/28/16 12:29 UNV Ondansetron HCl (Zofran) 4 mg Q6H PRN IVP Nausea & Vomiting 11/28/16 15:45 12/28/16 15:44 UNV Pantoprazole (Protonix) 40 mg DAILY IVP 11/29/16 09:00 12/29/16 08:59 UNV Piperacillin Sod/ Tazobactam Sod/ Dextrose (Zosyn/D5W) 110 ml @ 27.5 mls/hr Q8HR IVPB 11/28/16 13:00 12/05/16 12:59 UNV Polyethylene Glycol (Miralax) 17 gm DAILYPRN PRN ORAL Constipation 11/28/16 21:45 12/28/16 21:44 UNV Temazepam (Restoril) 15 mg HSPRN PRN ORAL Insomnia 11/28/16 21:45 12/05/16 21:44 UNV Allergies: Coded Allergies: No Known Allergies (Verified Allergy, Mild, 11/08/08) ROS Limited/Unobtainable: No Constitutional: Reports: no symptoms HEENT: Reports: no symptoms Cardiovascular: Reports: no symptoms Respiratory: Reports: no symptoms Gastrointestinal/Abdominal: Reports: abdominal pain, nausea, vomiting Genitourinary: Reports: no symptoms Neurologic/Psychiatric: Reports: no symptoms Subjective 81 YO F admitted with epigastric and chest pain .Now acute pancreatitis. C/O abdominal pain. Tolerating regular diet. Cover for [facility]-Dr Wyatt. 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, no motor/sensory deficits Skin: normal pigmentation, warm/dry Laboratory Tests Test 11/27/16 21:20 11/28/16 06:20 Troponin I < 0.30 ng/mL (<=0.30) < 0.30 ng/mL (<=0.30) White Blood Count 16.1 K/UL (4.8-10.8) #H Red Blood Count 4.44 M/UL (4.20-5.40) Hemoglobin 14.0 G/DL (12.0-16.0) Hematocrit 43.6 % (37.0-47.0) Mean Corpuscular Volume 98 FL (80-99) Mean Corpuscular Hemoglobin 31.6 PG (27.0-31.0) H Mean Corpuscular Hemoglobin Concent 32.2 G/DL (32.0-36.0) Red Cell Distribution Width 13.3 % (11.6-14.8) Platelet Count 120 K/UL (150-450) L Mean Platelet Volume 12.4 FL (6.5-10.1) H Neutrophils (%) (Auto) 74.3 % (45.0-75.0) Lymphocytes (%) (Auto) 8.7 % (20.0-45.0) L Monocytes (%) (Auto) 13.4 % (1.0-10.0) H Eosinophils (%) (Auto) 3.1 % (0.0-3.0) H Basophils (%) (Auto) 0.6 % (0.0-2.0) Sodium Level 139 mEQ/L (135-145) Potassium Level 4.2 mEQ/L (3.4-4.9) Chloride Level 98 mEQ/L (98-107) Carbon Dioxide Level 27 mEQ/L (20-30) Anion Gap 14 (5-15) Blood Urea Nitrogen 10 mg/dL (7-23) Creatinine 0.9 mg/dL (0.5-0.9) Estimat Glomerular Filtration Rate mL/min (>60) Glucose Level 136 mg/dL (74-106) H Calcium Level 9.2 mg/dL (8.6-10.2) Total Bilirubin 0.5 mg/dL (0.0-1.2) Aspartate Amino Transf (AST/SGOT) 12 U/L (5-40) Alanine Aminotransferase (ALT/SGPT) 6 U/L (3-33) Alkaline Phosphatase 168 U/L (35-104) H Total Protein 7.0 g/dL (6.6-8.7) Albumin 3.1 g/dL (3.5-5.2) L Globulin 3.9 g/dL Albumin/Globulin Ratio 0.7 (1.0-2.7) L Lipase 49 U/L (< 60) Intake and Output 11/27/16 11/28/16 19:00 07:00 Intake Total 175 ml 750 ml Balance 175 ml 750 ml Intake Oral 100 ml 120 ml IV Total 75 ml 630 ml # Voids 2 2 Assessment/Plan Problem List: (1) HTN (hypertension) Assessment & Plan: Cont diltiazem and norvasc. (2) Hypercholesteremia (3) Acute pancreatitis Assessment & Plan: Await abdominal ultrasound. See GI note. (4) Chest pain Assessment & Plan: Acute coronary syndrome ruled out-See cardiology note. (5) Epigastric abdominal pain Assessment & Plan: Due to pancreatitis. Cont IV morphine. See GI note. Status: SAMY De Los Santos Nov 28, 2016 12:29
[2016-11-28] MEDS ORDERED: Piperacillin/Tazobactam 3.375 GM in D5W 110 ML IVPB SCH (13:00)
[2016-11-28] MEDS ORDERED: Miralax 17gm pkt ORAL PRN (13:00)
[2016-11-28] MEDS ORDERED: Nitroglycerin Subl 0.4mg tab (Bottle Of 25) SL PRN (13:00)
[2016-11-28] MEDS ORDERED: Diltiazem 25mg/5ml IV PRN (13:00)
[2016-11-28] MEDS: Piperacillin/Tazobactam 3.375 GM in D5W 110 ML IVPB SCH ×2 (13:17→21:11)
--- NOTE | 2016-11-28 13:55 | General Progress Note ---
Assessment/Plan Assessment/Plan GI: Plan (1) Alkaline phosphatase elevation (2) Hypoalbuminemia (3) Morbidly obese (4) Acute pancreatitis Plan panCT reviewed >> Irregularity of the pancreas with atrophy of the tail and ectasia of the pancreatic duct within the tail. Suspect related to chronic pancreatitis, component of acute pancreatitis cannot be excluded. bowel rest >> PO trial zofran prn pain mgmt abx monitor lipase levels ppi fu labs Subjective Allergies: Coded Allergies: No Known Allergies (Verified Allergy, Mild, 11/08/08) Subjective feels OK some epigastric pain no vomiting Objective Last 24 Hour Vital Signs Date Time Temp Pulse Resp B/P Pulse Ox O2 Delivery O2 Flow Rate FiO2 11/28/16 12:02 162/74 11/28/16 11:45 97.0 74 20 159/87 97 Nasal Cannula 2.0 11/28/16 08:30 90 154/89 11/28/16 08:08 88 11/28/16 08:05 97.7 90 20 154/89 99 Nasal Cannula 2.0 11/28/16 06:38 91 15 Nasal Cannula 2.0 11/28/16 04:01 98.8 110 20 144/89 96 Room Air 11/28/16 04:00 106 11/28/16 00:30 156/98 11/28/16 00:04 98.8 89 19 174/86 94 Room Air 11/28/16 00:00 88 11/27/16 23:24 97.9 11/27/16 21:03 168/79 11/27/16 20:05 83 14 Room Air 11/27/16 20:00 97.9 80 20 168/79 91 Room Air 11/27/16 20:00 79 11/27/16 18:59 97.9 11/27/16 16:00 98.1 76 18 183/76 93 Room Air 11/27/16 16:00 74 Intake and Output 11/27/16 11/28/16 19:00 07:00 Intake Total 175 ml 750 ml Balance 175 ml 750 ml Intake Oral 100 ml 120 ml IV Total 75 ml 630 ml # Voids 2 2 Laboratory Tests 11/27/16 21:20: Troponin I < 0.30 11/28/16 06:20: Troponin I < 0.30, White Blood Count 16.1#H, Red Blood Count 4.44, Hemoglobin 14.0, Hematocrit 43.6, Mean Corpuscular Volume 98, Mean Corpuscular Hemoglobin 31.6H, Mean Corpuscular Hemoglobin Concent 32.2, Red Cell Distribution Width 13.3, Platelet Count 120L, Mean Platelet Volume 12.4H, Neutrophils (%) (Auto) 74.3, Lymphocytes (%) (Auto) 8.7L, Monocytes (%) (Auto) 13.4H, Eosinophils (%) ( Auto) 3.1H, Basophils (%) (Auto) 0.6, Sodium Level 139, Potassium Level 4.2, Chloride Level 98, Carbon Dioxide Level 27, Anion Gap 14, Blood Urea Nitrogen 10 , Creatinine 0.9, Estimat Glomerular Filtration Rate , Glucose Level 136H, Calcium Level 9.2, Total Bilirubin 0.5, Aspartate Amino Transf (AST/SGOT) 12, Alanine Aminotransferase (ALT/SGPT) 6, Alkaline Phosphatase 168H, Total Protein 7.0, Albumin 3.1L, Globulin 3.9, Albumin/Globulin Ratio 0.7L, Lipase 49 Height (Feet): 5 Height (Inches): 5.00 Weight (Pounds): 250 Objective WDWN AA woman NCAT Supple CTA RRR Soft obese (+) Epigastric TTP no edema BEAR XIE Nov 28, 2016 13:55
[2016-11-28] MEDS ORDERED: DuoNeb 0.5-3(2.5)mg/3ml neb HHN PRN (14:00)
[2016-11-28] MEDS ORDERED: Morphine Sulfate 4mg/ml Inj IVP PRN (16:00)
[2016-11-28] MEDS ORDERED: Morphine Sulfate 2mg/ml Inj IVP PRN (16:00)
[2016-11-28] MEDS ORDERED: Tubing IV Secondary IV ONE (17:02)
[2016-11-28] MEDS ORDERED: NS 275ml ONE (17:02)
[2016-11-29] VITALS (7 sets, daily range): BP systolic 144–188; BP diastolic 73–110
[2016-11-29] MEDS: Enalaprilat 2.5mg/2ml Inj IV PRN ×2 (01:00→07:04)
[2016-11-29] MEDS: D5 1/2NS w/KCl 20mEq 1,000 ML IV SCH ×3 (02:20→21:00)
[2016-11-29] MEDS: Piperacillin/Tazobactam 3.375 GM in D5W 110 ML IVPB SCH ×3 (06:15→21:15)
[2016-11-29 06:58] LABS: BASOPHILS % (AUTO) 0.7 % (0.0-2.0); EOSINOPHILS % (AUTO) 9.9 % (0.0-3.0); MEAN CORPUSCULAR HEMOGLOBIN 32.5 PG (27.0-31.0); MEAN CORPUSCULAR HGB CONC 33.4 G/DL (32.0-36.0); MEAN CORPUSCULAR VOLUME 97 FL (80-99); MEAN PLATELET VOLUME 11.2 FL (6.5-10.1); MONOCYTES % (AUTO) 16.2 % (1.0-10.0); NEUTROPHILS % (AUTO) 56.3 % (45.0-75.0); PLATELET COUNT 123 K/UL (150-450); RED BLOOD COUNT 4.44 M/UL (4.20-5.40); RED CELL DISTRIBUTION WIDTH 13.2 % (11.6-14.8); WHITE BLOOD COUNT 10.6 K/UL (4.8-10.8)
[2016-11-29 07:08] LABS: AMYLASE 62 U/L (10-110); ANION GAP 13 (5-15); CALCIUM 9.4 mg/dL (8.6-10.2); CARBON DIOXIDE 28 mEQ/L (20-30); CHLORIDE 97 mEQ/L (98-107); HEMOLYSIS 3; LIPASE 34 U/L (< 60); POTASSIUM 3.9 mEQ/L (3.4-4.9); SODIUM 138 mEQ/L (135-145)
[2016-11-29] MEDS: Aspirin Baby 81mg ORAL SCH (08:26)
[2016-11-29] MEDS: Heparin 5000 units/ml inj SUBQ SCH ×2 (08:28→20:42)
[2016-11-29] MEDS: Pantoprazole Inj IVP SCH (10:12)
--- NOTE | 2016-11-29 10:25 | General Progress Note ---
Assessment/Plan Assessment/Plan GI: Plan (1) Alkaline phosphatase elevation (2) Hypoalbuminemia (3) Morbidly obese (4) Acute pancreatitis Plan panCT reviewed >> Irregularity of the pancreas with atrophy of the tail and ectasia of the pancreatic duct within the tail. Suspect related to chronic pancreatitis, component of acute pancreatitis cannot be excluded. bowel rest >> PO trial zofran prn pain mgmt abx monitor lipase levels ppi fu labs Subjective Allergies: Coded Allergies: No Known Allergies (Verified Allergy, Mild, 11/08/08) Subjective feels OK no events overnight no vomiting Objective Last 24 Hour Vital Signs Date Time Temp Pulse Resp B/P Pulse Ox O2 Delivery O2 Flow Rate FiO2 11/29/16 10:12 70 188/87 11/29/16 08:26 70 188/87 11/29/16 08:24 97.9 78 20 188/87 96 Room Air 11/29/16 07:16 Nasal Cannula 2.0 28 11/29/16 07:16 98 Nasal Cannula 2.0 28 11/29/16 07:15 76 16 Nasal Cannula 2.0 28 11/29/16 07:04 185/110 11/29/16 04:00 97.5 76 20 185/110 98 Nasal Cannula 2.0 11/29/16 01:00 184/73 11/29/16 00:00 98.1 75 20 184/73 97 Nasal Cannula 2.0 11/28/16 20:00 97.7 80 16 150/98 94 Nasal Cannula 2.0 11/28/16 18:31 80 16 Nasal Cannula 2.0 28 11/28/16 15:49 98.2 80 16 153/105 94 Room Air 11/28/16 12:02 162/74 11/28/16 11:45 97.0 74 20 159/87 97 Nasal Cannula 2.0 Intake and Output 11/28/16 11/29/16 19:00 07:00 Intake Total 1005.0 ml 1060.0 ml Balance 1005.0 ml 1060.0 ml Intake Oral 520 ml 200 ml IV Total 485.0 ml 860.0 ml # Voids 3 4 Laboratory Tests 11/29/16 06:20: White Blood Count 10.6, Red Blood Count 4.44, Hemoglobin 14.5, Hematocrit 43.3, Mean Corpuscular Volume 97, Mean Corpuscular Hemoglobin 32.5H, Mean Corpuscular Hemoglobin Concent 33.4, Red Cell Distribution Width 13.2, Platelet Count 123L, Mean Platelet Volume 11.2H, Neutrophils (%) (Auto) 56.3, Lymphocytes (%) (Auto) 17.0L, Monocytes (%) (Auto) 16.2H, Eosinophils (%) (Auto) 9.9H, Basophils (%) ( Auto) 0.7, Sodium Level 138, Potassium Level 3.9, Chloride Level 97L, Carbon Dioxide Level 28, Anion Gap 13, Blood Urea Nitrogen 8, Creatinine 1.0H, Estimat Glomerular Filtration Rate , Glucose Level 116H, Calcium Level 9.4, Amylase Level 62, Lipase 34 Height (Feet): 5 Height (Inches): 5.00 Weight (Pounds): 250 Objective WDWN AA woman NCAT Supple CTA RRR Soft obese (+) Epigastric TTP no edema BEAR XIE Nov 29, 2016 10:25
--- NOTE | 2016-11-29 13:07 | Internal Med Progress Note ---
Subjective Date of Service: Nov 29, 2016 Physician Name Samy Mosher Attending Physician Edinson Wyatt MD Current Medications Medications (Trade) Dose Ordered Sig/Demetrio Route PRN Reason Start Time Stop Time Status Last Admin Dose Admin Acetaminophen (Tylenol) 650 mg Q4H PRN ORAL T>100.5 11/28/16 14:00 12/28/16 13:59 Albuterol/ Ipratropium (DuoNeb 0.5-3(2.5)mg/3ml) 3 ml Q4H PRN HHN Shortness of Breath 11/28/16 14:00 12/03/16 13:59 Amlodipine Besylate (Norvasc) 5 mg Q12HR ORAL 11/29/16 10:00 12/29/16 09:59 11/29/16 10:12 Aspirin (ASA) 162 mg DAILY ORAL 11/29/16 09:00 12/29/16 08:59 11/29/16 08:26 Clonidine HCl (Catapres) 0.1 mg EVERY 8 HOURS PRN ORAL For High Blood Pressure 11/29/16 09:45 12/29/16 09:44 Dextrose/ Electrolytes 1,000 ml @ 75 mls/hr [id number] IV 11/28/16 13:00 12/28/16 12:59 11/28/16 16:54 Heparin Sodium (Porcine) (Heparin 5000 units/ml) 5,000 units EVERY 12 HOURS SUBQ 11/28/16 21:00 12/28/16 20:59 11/29/16 08:28 Morphine Sulfate (Morphine Sulfate) 2 mg Q4H PRN IVP Moderate Pain (Pain Scale 4-6) 11/28/16 16:00 12/05/16 15:59 11/28/16 17:35 Morphine Sulfate (Morphine Sulfate) 4 mg Q4H PRN IVP Severe Pain (Pain Scale 7-10) 11/28/16 16:00 12/05/16 15:59 Nitroglycerin (Ntg) 0.4 mg Q5MIN X 3 DOSES PRN SL Prn Chest Pain 11/28/16 13:00 12/28/16 12:59 Ondansetron HCl (Zofran) 4 mg Q6H PRN IVP Nausea & Vomiting 11/28/16 13:00 12/28/16 12:59 Pantoprazole (Protonix) 40 mg DAILY IVP 11/29/16 09:00 12/29/16 08:59 11/29/16 10:12 Piperacillin Sod/ Tazobactam Sod/ Dextrose (Zosyn/D5W) 110 ml @ 27.5 mls/hr Q8HR IVPB 11/28/16 14:00 12/05/16 13:59 11/29/16 06:15 Polyethylene Glycol (Miralax) 17 gm DAILYPRN PRN ORAL Constipation 11/28/16 13:00 12/28/16 12:59 Temazepam (Restoril) 15 mg HSPRN PRN ORAL Insomnia 11/28/16 21:00 12/05/16 20:59 Allergies: Coded Allergies: No Known Allergies (Verified Allergy, Mild, 11/08/08) ROS Limited/Unobtainable: No Constitutional: Reports: no symptoms HEENT: Reports: no symptoms Cardiovascular: Reports: no symptoms Respiratory: Reports: no symptoms Gastrointestinal/Abdominal: Reports: abdominal pain, nausea Genitourinary: Reports: no symptoms Neurologic/Psychiatric: Reports: no symptoms Subjective 81 YO F admitted with epigastric and chest pain .Now acute pancreatitis. C/O abdominal pain. Tolerating clear liquid diet. Cover for [facility] Wyatt. Objective Last Vital Signs Date Time Temp Pulse Resp B/P Pulse Ox O2 Delivery O2 Flow Rate FiO2 11/29/16 11:48 97.8 76 20 144/97 96 Room Air 11/29/16 07:16 2.0 28 Laboratory Tests Test 11/29/16 06:20 White Blood Count 10.6 K/UL (4.8-10.8) Red Blood Count 4.44 M/UL (4.20-5.40) Hemoglobin 14.5 G/DL (12.0-16.0) Hematocrit 43.3 % (37.0-47.0) Mean Corpuscular Volume 97 FL (80-99) Mean Corpuscular Hemoglobin 32.5 PG (27.0-31.0) H Mean Corpuscular Hemoglobin Concent 33.4 G/DL (32.0-36.0) Red Cell Distribution Width 13.2 % (11.6-14.8) Platelet Count 123 K/UL (150-450) L Mean Platelet Volume 11.2 FL (6.5-10.1) H Neutrophils (%) (Auto) 56.3 % (45.0-75.0) Lymphocytes (%) (Auto) 17.0 % (20.0-45.0) L Monocytes (%) (Auto) 16.2 % (1.0-10.0) H Eosinophils (%) (Auto) 9.9 % (0.0-3.0) H Basophils (%) (Auto) 0.7 % (0.0-2.0) Sodium Level 138 mEQ/L (135-145) Potassium Level 3.9 mEQ/L (3.4-4.9) Chloride Level 97 mEQ/L (98-107) L Carbon Dioxide Level 28 mEQ/L (20-30) Anion Gap 13 (5-15) Blood Urea Nitrogen 8 mg/dL (7-23) Creatinine 1.0 mg/dL (0.5-0.9) H Estimat Glomerular Filtration Rate mL/min (>60) Glucose Level 116 mg/dL (74-106) H Calcium Level 9.4 mg/dL (8.6-10.2) Amylase Level 62 U/L (10-110) Lipase 34 U/L (< 60) Intake and Output 11/28/16 11/29/16 19:00 07:00 Intake Total 1005.0 ml 1135.0 ml Balance 1005.0 ml 1135.0 ml Intake Oral 520 ml 200 ml IV Total 485.0 ml 935.0 ml # Voids 3 4 Objective General Appearance: WD/WN, no apparent distress, alert EENT: PERRL/EOMI, normal ENT inspection, TMs normal Neck: non-tender, normal alignment, supple Cardiovascular: normal peripheral pulses, normal rate, regular rhythm, regularly irregular Respiratory/Chest: chest wall non-tender, lungs clear, normal breath sounds, no respiratory distress, no accessory muscle use Abdomen: decreased bowel sounds, distended, guarding, tender 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 (2) Hypercholesteremia (3) Acute pancreatitis Assessment & Plan: Await abdominal ultrasound. See GI note. (4) Chest pain Assessment & Plan: Acute coronary syndrome ruled out-See cardiology note. (5) Epigastric abdominal pain Assessment & Plan: Due to pancreatitis. Cont IV morphine. See GI note. Status: not improved Assessment/Plan Clear liquid diet trial SAMY MOSHER Nov 29, 2016 13:07
--- NOTE | 2016-11-29 16:07 | Cardiology Progress Note ---
Assessment/Plan Assessment/Plan 1. Epigastric pain, possibilities include cholecystitis, pancreatitis, and gastritis. 2. Hypertension history. 3. Hyperlipidemia. 4. Obesity. 5. Mild thrombocytopenia. 6. Colonic diverticulosis, without evidence of diverticulitis 7. Small fat-containing umbilical hernia. 8. Sclerosis of the sacrum and possibly the adjacent iliac bones, Paget's disease feels alto better ct result reviewed all trop neg ekg neg prelim echo neg lipase improved , sx improved norvasc incrae as needed gi pepper Subjective Cardiovascular: Denies: chest pain Respiratory: Denies: SOB with excertion Gastrointestinal/Abdominal: Denies: abdominal pain Genitourinary: Denies: burning Objective Last 24 Hour Vital Signs Date Time Temp Pulse Resp B/P Pulse Ox O2 Delivery O2 Flow Rate FiO2 11/29/16 11:48 97.8 76 20 144/97 96 Room Air 11/29/16 10:12 70 188/87 11/29/16 09:45 88 167/105 11/29/16 08:26 70 188/87 11/29/16 08:24 97.9 78 20 188/87 96 Room Air 11/29/16 07:16 Nasal Cannula 2.0 28 11/29/16 07:16 98 Nasal Cannula 2.0 28 11/29/16 07:15 76 16 Nasal Cannula 2.0 28 11/29/16 07:04 185/110 11/29/16 04:00 97.5 76 20 185/110 98 Nasal Cannula 2.0 11/29/16 01:00 184/73 11/29/16 00:00 98.1 75 20 184/73 97 Nasal Cannula 2.0 11/28/16 20:00 97.7 80 16 150/98 94 Nasal Cannula 2.0 11/28/16 18:31 80 16 Nasal Cannula 2.0 28 General Appearance: no apparent distress, alert, obese Cardiovascular: normal rate, regular rhythm Respiratory/Chest: lungs clear, normal breath sounds Abdomen: normal bowel sounds, non tender, soft Extremities: no swelling Intake and Output 11/28/16 11/29/16 19:00 07:00 Intake Total 1005.0 ml 1135.0 ml Balance 1005.0 ml 1135.0 ml Intake Oral 520 ml 200 ml IV Total 485.0 ml 935.0 ml # Voids 3 4 Laboratory Tests Test 11/29/16 06:20 White Blood Count 10.6 K/UL (4.8-10.8) Red Blood Count 4.44 M/UL (4.20-5.40) Hemoglobin 14.5 G/DL (12.0-16.0) Hematocrit 43.3 % (37.0-47.0) Mean Corpuscular Volume 97 FL (80-99) Mean Corpuscular Hemoglobin 32.5 PG (27.0-31.0) H Mean Corpuscular Hemoglobin Concent 33.4 G/DL (32.0-36.0) Red Cell Distribution Width 13.2 % (11.6-14.8) Platelet Count 123 K/UL (150-450) L Mean Platelet Volume 11.2 FL (6.5-10.1) H Neutrophils (%) (Auto) 56.3 % (45.0-75.0) Lymphocytes (%) (Auto) 17.0 % (20.0-45.0) L Monocytes (%) (Auto) 16.2 % (1.0-10.0) H Eosinophils (%) (Auto) 9.9 % (0.0-3.0) H Basophils (%) (Auto) 0.7 % (0.0-2.0) Sodium Level 138 mEQ/L (135-145) Potassium Level 3.9 mEQ/L (3.4-4.9) Chloride Level 97 mEQ/L (98-107) L Carbon Dioxide Level 28 mEQ/L (20-30) Anion Gap 13 (5-15) Blood Urea Nitrogen 8 mg/dL (7-23) Creatinine 1.0 mg/dL (0.5-0.9) H Estimat Glomerular Filtration Rate mL/min (>60) Glucose Level 116 mg/dL (74-106) H Calcium Level 9.4 mg/dL (8.6-10.2) Amylase Level 62 U/L (10-110) Lipase 34 U/L (< 60) ROBERTO ARVIZU Nov 29, 2016 16:07
--- NOTE | 2016-11-29 22:51 | Pulmonology Progress Note ---
Assessment/Plan Problems: (1) Acute pancreatitis (2) Cholangitis (3) Costochondritis (4) ACS (acute coronary syndrome) Assessment/Plan abdominal US GI evaluation appreciated afebrile cardio following med/surg dvt prophylaxis Subjective ROS Limited/Unobtainable: No Interval Events: no new complains Allergies: Coded Allergies: No Known Allergies (Verified Allergy, Mild, 11/08/08) Objective Last 24 Hour Vital Signs Date Time Temp Pulse Resp B/P Pulse Ox O2 Delivery O2 Flow Rate FiO2 11/29/16 20:38 73 165/78 11/29/16 20:00 97.0 73 18 165/75 97 Room Air 11/29/16 16:00 97.7 72 16 164/74 95 Room Air 11/29/16 11:48 97.8 76 20 144/97 96 Room Air 11/29/16 10:12 70 188/87 11/29/16 09:45 88 167/105 11/29/16 08:26 70 188/87 11/29/16 08:24 97.9 78 20 188/87 96 Room Air 11/29/16 07:16 Nasal Cannula 2.0 28 11/29/16 07:16 98 Nasal Cannula 2.0 28 11/29/16 07:15 76 16 Nasal Cannula 2.0 28 11/29/16 07:04 185/110 11/29/16 04:00 97.5 76 20 185/110 98 Nasal Cannula 2.0 11/29/16 01:00 184/73 11/29/16 00:00 98.1 75 20 184/73 97 Nasal Cannula 2.0 Intake and Output 11/28/16 11/29/16 19:00 07:00 Intake Total 1005.0 ml 1135.0 ml Balance 1005.0 ml 1135.0 ml Intake Oral 520 ml 200 ml IV Total 485.0 ml 935.0 ml # Voids 3 4 Objective General Appearance: WD/WN HEENT: normocephalic, atraumatic Respiratory/Chest: chest wall non-tender, lungs clear Cardiovascular: normal peripheral pulses, normal rate Abdomen: normal bowel sounds, soft, non tender Laboratory Tests 11/29/16 06:20: White Blood Count 10.6, Red Blood Count 4.44, Hemoglobin 14.5, Hematocrit 43.3, Mean Corpuscular Volume 97, Mean Corpuscular Hemoglobin 32.5H, Mean Corpuscular Hemoglobin Concent 33.4, Red Cell Distribution Width 13.2, Platelet Count 123L, Mean Platelet Volume 11.2H, Neutrophils (%) (Auto) 56.3, Lymphocytes (%) (Auto) 17.0L, Monocytes (%) (Auto) 16.2H, Eosinophils (%) (Auto) 9.9H, Basophils (%) ( Auto) 0.7, Sodium Level 138, Potassium Level 3.9, Chloride Level 97L, Carbon Dioxide Level 28, Anion Gap 13, Blood Urea Nitrogen 8, Creatinine 1.0H, Estimat Glomerular Filtration Rate , Glucose Level 116H, Calcium Level 9.4, Amylase Level 62, Lipase 34 Current Medications Medications (Trade) Dose Ordered Sig/Demetrio Route PRN Reason Start Time Stop Time Status Last Admin Dose Admin Acetaminophen (Tylenol) 650 mg Q4H PRN ORAL T>100.5 11/28/16 14:00 12/28/16 13:59 Albuterol/ Ipratropium (DuoNeb 0.5-3(2.5)mg/3ml) 3 ml Q4H PRN HHN Shortness of Breath 11/28/16 14:00 12/03/16 13:59 Amlodipine Besylate (Norvasc) 5 mg Q12HR ORAL 11/29/16 10:00 12/29/16 09:59 11/29/16 20:38 Aspirin (ASA) 162 mg DAILY ORAL 11/29/16 09:00 12/29/16 08:59 11/29/16 08:26 Clonidine HCl (Catapres) 0.1 mg EVERY 8 HOURS PRN ORAL For High Blood Pressure 11/29/16 09:45 12/29/16 09:44 Dextrose/ Electrolytes 1,000 ml @ 75 mls/hr [id number] IV 11/28/16 13:00 12/28/16 12:59 11/29/16 21:00 Heparin Sodium (Porcine) (Heparin 5000 units/ml) 5,000 units EVERY 12 HOURS SUBQ 11/28/16 21:00 12/28/16 20:59 11/29/16 20:42 Morphine Sulfate (Morphine Sulfate) 2 mg Q4H PRN IVP Moderate Pain (Pain Scale 4-6) 11/28/16 16:00 12/05/16 15:59 11/28/16 17:35 Morphine Sulfate (Morphine Sulfate) 4 mg Q4H PRN IVP Severe Pain (Pain Scale 7-10) 11/28/16 16:00 12/05/16 15:59 Nitroglycerin (Ntg) 0.4 mg Q5MIN X 3 DOSES PRN SL Prn Chest Pain 11/28/16 13:00 12/28/16 12:59 Ondansetron HCl (Zofran) 4 mg Q6H PRN IVP Nausea & Vomiting 11/28/16 13:00 12/28/16 12:59 Pantoprazole (Protonix) 40 mg DAILY IVP 11/29/16 09:00 12/29/16 08:59 11/29/16 10:12 Piperacillin Sod/ Tazobactam Sod/ Dextrose (Zosyn/D5W) 110 ml @ 27.5 mls/hr Q8HR IVPB 11/28/16 14:00 12/05/16 13:59 11/29/16 21:15 Polyethylene Glycol (Miralax) 17 gm DAILYPRN PRN ORAL Constipation 11/28/16 13:00 12/28/16 12:59 Temazepam (Restoril) 15 mg HSPRN PRN ORAL Insomnia 11/28/16 21:00 12/05/16 20:59 ELÍAS ALFREDO Nov 29, 2016 22:50
[2016-11-30] VITALS: BP 129/75
[2016-11-30 04:00] VITALS: BP 125/71
[2016-11-30] MEDS: D5 1/2NS w/KCl 20mEq 1,000 ML IV SCH ×2 (05:00→12:16)
[2016-11-30] MEDS: Piperacillin/Tazobactam 3.375 GM in D5W 110 ML IVPB SCH ×2 (06:45→13:27)
[2016-11-30 07:21] LABS: BASOPHILS % (AUTO) 1.1 % (0.0-2.0); EOSINOPHILS % (AUTO) 13.4 % (0.0-3.0); LYMPHOCYTES % (AUTO) 22.1 % (20.0-45.0); MEAN CORPUSCULAR HEMOGLOBIN 31.6 PG (27.0-31.0); MEAN CORPUSCULAR HGB CONC 32.4 G/DL (32.0-36.0); MEAN CORPUSCULAR VOLUME 97 FL (80-99); MONOCYTES % (AUTO) 16.5 % (1.0-10.0); PLATELET COUNT 151 K/UL (150-450); RED BLOOD COUNT 4.72 M/UL (4.20-5.40); RED CELL DISTRIBUTION WIDTH 13.2 % (11.6-14.8)
[2016-11-30 07:56] LABS: AMYLASE 57 U/L (10-110); ANION GAP 15 (5-15); CALCIUM 9.5 mg/dL (8.6-10.2); CARBON DIOXIDE 30 mEQ/L (20-30); CHLORIDE 97 mEQ/L (98-107); HEMOLYSIS 7; LIPASE 27 U/L (< 60); POTASSIUM 3.7 mEQ/L (3.4-4.9); SODIUM 142 mEQ/L (135-145)
[2016-11-30 08:29] VITALS: BP 168/93
--- NOTE | 2016-11-30 08:39 | Diagnostic Imaging Report ---
Indication:Abdominal pain Technique: Grayscale and duplex Doppler imaging of the abdomen performed. Comparison: None Findings: There is a large shadowing focus in the upper pole the left kidney. This corresponds to a calcified mass seen on recent CT. Unfortunately, the ultrasound does not add much in terms of diagnosis as the calcification is associated with dense shadowing. There is no hydronephrosis present within either kidney. The liver, demonstrated part of the pancreas appear unremarkable. Main portal vein is patent by Doppler examination. There is no ascites. Gallbladder is distended. No gallstones are seen. CBD measures 4 mm. Aorta is not seen on this study. Impression: Large shadowing focus in the upper pole left kidney consistent with a heavily rim calcified mass seen on recent CT. Unfortunately, sonographic evaluation does not add anything to the diagnosis or evaluation. Followup is suggested.
[2016-11-30] MEDS: Aspirin Baby 81mg ORAL SCH (08:56)
[2016-11-30] MEDS: Pantoprazole Inj IVP SCH (08:57)
[2016-11-30] MEDS: Heparin 5000 units/ml inj SUBQ SCH (08:58)
--- NOTE | 2016-11-30 10:55 | Internal Med Progress Note ---
Subjective Date of Service: Nov 30, 2016 Physician Name Samy Mosher Attending Physician Edinson Wyatt MD Current Medications Medications (Trade) Dose Ordered Sig/Demetrio Route PRN Reason Start Time Stop Time Status Last Admin Dose Admin Acetaminophen (Tylenol) 650 mg Q4H PRN ORAL T>100.5 11/28/16 14:00 12/28/16 13:59 Albuterol/ Ipratropium (DuoNeb 0.5-3(2.5)mg/3ml) 3 ml Q4H PRN HHN Shortness of Breath 11/28/16 14:00 12/03/16 13:59 Amlodipine Besylate (Norvasc) 5 mg Q12HR ORAL 11/29/16 10:00 12/29/16 09:59 11/30/16 08:56 Aspirin (ASA) 162 mg DAILY ORAL 11/29/16 09:00 12/29/16 08:59 11/30/16 08:56 Clonidine HCl (Catapres) 0.1 mg EVERY 8 HOURS PRN ORAL For High Blood Pressure 11/29/16 09:45 12/29/16 09:44 Dextrose/ Electrolytes 1,000 ml @ 75 mls/hr [id number] IV 11/28/16 13:00 12/28/16 12:59 11/29/16 21:00 Heparin Sodium (Porcine) (Heparin 5000 units/ml) 5,000 units EVERY 12 HOURS SUBQ 11/28/16 21:00 12/28/16 20:59 11/30/16 08:58 Morphine Sulfate (Morphine Sulfate) 2 mg Q4H PRN IVP Moderate Pain (Pain Scale 4-6) 11/28/16 16:00 12/05/16 15:59 11/28/16 17:35 Morphine Sulfate (Morphine Sulfate) 4 mg Q4H PRN IVP Severe Pain (Pain Scale 7-10) 11/28/16 16:00 12/05/16 15:59 Nitroglycerin (Ntg) 0.4 mg Q5MIN X 3 DOSES PRN SL Prn Chest Pain 11/28/16 13:00 12/28/16 12:59 Ondansetron HCl (Zofran) 4 mg Q6H PRN IVP Nausea & Vomiting 11/28/16 13:00 12/28/16 12:59 Pantoprazole (Protonix) 40 mg DAILY IVP 11/29/16 09:00 12/29/16 08:59 11/30/16 08:57 Piperacillin Sod/ Tazobactam Sod/ Dextrose (Zosyn/D5W) 110 ml @ 27.5 mls/hr Q8HR IVPB 11/28/16 14:00 12/05/16 13:59 11/30/16 06:45 Polyethylene Glycol (Miralax) 17 gm DAILYPRN PRN ORAL Constipation 11/28/16 13:00 12/28/16 12:59 Temazepam (Restoril) 15 mg HSPRN PRN ORAL Insomnia 11/28/16 21:00 12/05/16 20:59 Allergies: Coded Allergies: No Known Allergies (Verified Allergy, Mild, 11/08/08) Subjective 81 YO F admitted with epigastric and chest pain .Now acute pancreatitis. C/O abdominal pain. Tolerating low fat diet. Cover for Int Asher-Dr Wyatt. Objective Last Vital Signs Date Time Temp Pulse Resp B/P Pulse Ox O2 Delivery O2 Flow Rate FiO2 11/30/16 08:56 71 168/93 11/30/16 08:29 97.0 20 95 Room Air 11/29/16 23:20 2.0 28 Laboratory Tests Test 11/30/16 06:45 White Blood Count 9.0 K/UL (4.8-10.8) Red Blood Count 4.72 M/UL (4.20-5.40) Hemoglobin 14.9 G/DL (12.0-16.0) Hematocrit 45.9 % (37.0-47.0) Mean Corpuscular Volume 97 FL (80-99) Mean Corpuscular Hemoglobin 31.6 PG (27.0-31.0) H Mean Corpuscular Hemoglobin Concent 32.4 G/DL (32.0-36.0) Red Cell Distribution Width 13.2 % (11.6-14.8) Platelet Count 151 K/UL (150-450) Mean Platelet Volume 12.0 FL (6.5-10.1) H Neutrophils (%) (Auto) 47.0 % (45.0-75.0) Lymphocytes (%) (Auto) 22.1 % (20.0-45.0) Monocytes (%) (Auto) 16.5 % (1.0-10.0) H Eosinophils (%) (Auto) 13.4 % (0.0-3.0) H Basophils (%) (Auto) 1.1 % (0.0-2.0) Sodium Level 142 mEQ/L (135-145) Potassium Level 3.7 mEQ/L (3.4-4.9) Chloride Level 97 mEQ/L (98-107) L Carbon Dioxide Level 30 mEQ/L (20-30) Anion Gap 15 (5-15) Blood Urea Nitrogen 7 mg/dL (7-23) Creatinine 1.0 mg/dL (0.5-0.9) H Estimat Glomerular Filtration Rate mL/min (>60) Glucose Level 117 mg/dL (74-106) H Calcium Level 9.5 mg/dL (8.6-10.2) Amylase Level 57 U/L (10-110) Lipase 27 U/L (< 60) Intake and Output 11/29/16 11/30/16 19:00 07:00 Intake Total 770.0 ml 680.0 ml Output Total 450 ml Balance 320.0 ml 680.0 ml Intake Oral 400 ml 120 ml IV Total 370.0 ml 560.0 ml Output Urine Total 450 ml # Voids 3 Objective General Appearance: WD/WN, no apparent distress, alert EENT: PERRL/EOMI, normal ENT inspection, TMs normal Neck: non-tender, normal alignment, supple Cardiovascular: normal peripheral pulses, normal rate, regular rhythm, regularly irregular Respiratory/Chest: chest wall non-tender, lungs clear, normal breath sounds, no respiratory distress, no accessory muscle use Abdomen: decreased bowel sounds, distended, guarding, tender 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 (2) Hypercholesteremia (3) Acute pancreatitis Assessment & Plan: See abdominal ultrasound and CT abdomen result- pancreatitis.. See GI note. Trial of low fat diet today; if tolerated, discharge planning. (4) Chest pain Assessment & Plan: Acute coronary syndrome ruled out-See cardiology note. (5) Epigastric abdominal pain Assessment & Plan: Due to pancreatitis. Cont IV morphine. See GI note. (6) Left renal mass Assessment & Plan: ?old infection? See CT scan result Status: progressing Assessment/Plan Discharge planning: Home health SAMY MOSHER Nov 30, 2016 10:55
[2016-11-30 11:22] VITALS: BP 127/75
--- NOTE | 2016-11-30 11:27 | GI Progress Note ---
Assessment/Plan Problems: (1) Epigastric abdominal pain ICD Codes: R10.13 - Epigastric pain SNOMED: 97725487 (2) Hypoalbuminemia ICD Codes: E88.09 - Other disorders of plasma-protein metabolism, not elsewhere classified SNOMED: 144421297 (3) Acute pancreatitis ICD Codes: K85.90 - Acute pancreatitis without necrosis or infection, unspecified SNOMED: 350216908 Qualifiers: Qualified Codes: K85.90 - Acute pancreatitis without necrosis or infection, unspecified (4) Morbidly obese ICD Codes: E66.01 - Morbid (severe) obesity due to excess calories SNOMED: 123071483, [id number] (5) Pain ICD Codes: R52 - Pain, unspecified SNOMED: 01404569 Status: stable Status Narrative Discussed with Dr. Schwartz. Assessment/Plan panCT reviewed >> Irregularity of the pancreas with atrophy of the tail and ectasia of the pancreatic duct within the tail. Suspect related to chronic pancreatitis, component of acute pancreatitis cannot be excluded. Abd US reviewed >> unremarkable elevated lipase >> WNL okay for DC per GI standpoint if patient tolerates diet - adv to low fat for lunch today zofran prn pain mgmt ppi fu labs Subjective Gastrointestinal/Abdominal: Reports: no symptoms Subjective denies any abdominal pain stated she ate more than a jar of peanut butter prior to her abdominal pain ready to go home Objective Last 24 Hour Vital Signs Date Time Temp Pulse Resp B/P Pulse Ox O2 Delivery O2 Flow Rate FiO2 11/30/16 08:56 71 168/93 11/30/16 08:29 97.0 71 20 168/93 95 Room Air 11/30/16 04:00 97.9 75 18 125/71 100 Room Air 11/30/16 00:00 97.7 89 20 129/75 97 Room Air 11/29/16 23:20 Nasal Cannula 2.0 28 11/29/16 23:20 99 Nasal Cannula 2.0 28 11/29/16 23:19 84 16 Nasal Cannula 2.0 28 11/29/16 20:38 73 165/78 11/29/16 20:00 97.0 73 18 165/75 97 Room Air 11/29/16 16:00 97.7 72 16 164/74 95 Room Air 11/29/16 11:48 97.8 76 20 144/97 96 Room Air Intake and Output 11/29/16 11/30/16 19:00 07:00 Intake Total 770.0 ml 680.0 ml Output Total 450 ml Balance 320.0 ml 680.0 ml Intake Oral 400 ml 120 ml IV Total 370.0 ml 560.0 ml Output Urine Total 450 ml # Voids 3 Laboratory Tests Test 11/30/16 06:45 White Blood Count 9.0 K/UL (4.8-10.8) Red Blood Count 4.72 M/UL (4.20-5.40) Hemoglobin 14.9 G/DL (12.0-16.0) Hematocrit 45.9 % (37.0-47.0) Mean Corpuscular Volume 97 FL (80-99) Mean Corpuscular Hemoglobin 31.6 PG (27.0-31.0) H Mean Corpuscular Hemoglobin Concent 32.4 G/DL (32.0-36.0) Red Cell Distribution Width 13.2 % (11.6-14.8) Platelet Count 151 K/UL (150-450) Mean Platelet Volume 12.0 FL (6.5-10.1) H Neutrophils (%) (Auto) 47.0 % (45.0-75.0) Lymphocytes (%) (Auto) 22.1 % (20.0-45.0) Monocytes (%) (Auto) 16.5 % (1.0-10.0) H Eosinophils (%) (Auto) 13.4 % (0.0-3.0) H Basophils (%) (Auto) 1.1 % (0.0-2.0) Sodium Level 142 mEQ/L (135-145) Potassium Level 3.7 mEQ/L (3.4-4.9) Chloride Level 97 mEQ/L (98-107) L Carbon Dioxide Level 30 mEQ/L (20-30) Anion Gap 15 (5-15) Blood Urea Nitrogen 7 mg/dL (7-23) Creatinine 1.0 mg/dL (0.5-0.9) H Estimat Glomerular Filtration Rate mL/min (>60) Glucose Level 117 mg/dL (74-106) H Calcium Level 9.5 mg/dL (8.6-10.2) Amylase Level 57 U/L (10-110) Lipase 27 U/L (< 60) Height (Feet): 5 Height (Inches): 5.00 Weight (Pounds): 250 General Appearance: no apparent distress, alert Cardiovascular: normal rate Respiratory/Chest: normal breath sounds, no respiratory distress Abdominal Exam: normal bowel sounds, non tender, soft Extremities: normal range of motion Julienne Jauregui N.P. Nov 30, 2016 11:27
--- NOTE | 2016-11-30 15:43 | Cardiology Progress Note ---
Assessment/Plan Assessment/Plan 1. Epigastric pain, possibilities include cholecystitis, pancreatitis, and gastritis. 2. Hypertension history. 3. Hyperlipidemia. 4. Obesity. 5. Mild thrombocytopenia. 6. Colonic diverticulosis, without evidence of diverticulitis 7. Small fat-containing umbilical hernia. 8. Sclerosis of the sacrum and possibly the adjacent iliac bones, Paget's disease feels alto better ct result reviewed all trop neg ekg neg prelim echo neg lipase improved , sx improved norvasc incrae as needed gi pepper Subjective Cardiovascular: Denies: chest pain, irregular heart rate, lightheadedness Respiratory: Denies: shortness of breath Gastrointestinal/Abdominal: Denies: abdominal pain Genitourinary: Denies: burning Objective Last 24 Hour Vital Signs Date Time Temp Pulse Resp B/P Pulse Ox O2 Delivery O2 Flow Rate FiO2 11/30/16 11:22 97.5 75 19 127/75 95 Room Air 11/30/16 08:56 71 168/93 11/30/16 08:29 97.0 71 20 168/93 95 Room Air 11/30/16 04:00 97.9 75 18 125/71 100 Room Air 11/30/16 00:00 97.7 89 20 129/75 97 Room Air 11/29/16 23:20 Nasal Cannula 2.0 28 11/29/16 23:20 99 Nasal Cannula 2.0 28 11/29/16 23:19 84 16 Nasal Cannula 2.0 28 11/29/16 20:38 73 165/78 11/29/16 20:00 97.0 73 18 165/75 97 Room Air 11/29/16 16:00 97.7 72 16 164/74 95 Room Air General Appearance: no apparent distress, alert Rhythm: NSR Cardiovascular: normal rate, regular rhythm Respiratory/Chest: lungs clear, normal breath sounds Abdomen: normal bowel sounds, non tender, soft Extremities: no swelling Intake and Output 11/29/16 11/30/16 19:00 07:00 Intake Total 770.0 ml 680.0 ml Output Total 450 ml Balance 320.0 ml 680.0 ml Intake Oral 400 ml 120 ml IV Total 370.0 ml 560.0 ml Output Urine Total 450 ml # Voids 3 Laboratory Tests Test 11/30/16 06:45 White Blood Count 9.0 K/UL (4.8-10.8) Red Blood Count 4.72 M/UL (4.20-5.40) Hemoglobin 14.9 G/DL (12.0-16.0) Hematocrit 45.9 % (37.0-47.0) Mean Corpuscular Volume 97 FL (80-99) Mean Corpuscular Hemoglobin 31.6 PG (27.0-31.0) H Mean Corpuscular Hemoglobin Concent 32.4 G/DL (32.0-36.0) Red Cell Distribution Width 13.2 % (11.6-14.8) Platelet Count 151 K/UL (150-450) Mean Platelet Volume 12.0 FL (6.5-10.1) H Neutrophils (%) (Auto) 47.0 % (45.0-75.0) Lymphocytes (%) (Auto) 22.1 % (20.0-45.0) Monocytes (%) (Auto) 16.5 % (1.0-10.0) H Eosinophils (%) (Auto) 13.4 % (0.0-3.0) H Basophils (%) (Auto) 1.1 % (0.0-2.0) Sodium Level 142 mEQ/L (135-145) Potassium Level 3.7 mEQ/L (3.4-4.9) Chloride Level 97 mEQ/L (98-107) L Carbon Dioxide Level 30 mEQ/L (20-30) Anion Gap 15 (5-15) Blood Urea Nitrogen 7 mg/dL (7-23) Creatinine 1.0 mg/dL (0.5-0.9) H Estimat Glomerular Filtration Rate mL/min (>60) Glucose Level 117 mg/dL (74-106) H Calcium Level 9.5 mg/dL (8.6-10.2) Amylase Level 57 U/L (10-110) Lipase 27 U/L (< 60) ROBERTO ARVIZU Nov 30, 2016 15:43
--- NOTE | 2016-11-30 15:45 | Cardiology Progress Note ---
Assessment/Plan Assessment/Plan 1. Epigastric pain, possibilities include cholecystitis, pancreatitis, and gastritis. 2. Hypertension history. 3. Hyperlipidemia. 4. Obesity. 5. Mild thrombocytopenia. 6. Colonic diverticulosis, without evidence of diverticulitis 7. Small fat-containing umbilical hernia. 8. Sclerosis of the sacrum and possibly the adjacent iliac bones, Paget's disease feels fien ct result reviewed all trop neg ekg neg prelim echo neg lipase improved , sx improved norvasc seem to be controlling bp Subjective Cardiovascular: Denies: chest pain Respiratory: Denies: SOB with excertion Gastrointestinal/Abdominal: Denies: abdominal pain Genitourinary: Denies: burning Objective Last 24 Hour Vital Signs Date Time Temp Pulse Resp B/P Pulse Ox O2 Delivery O2 Flow Rate FiO2 11/30/16 11:22 97.5 75 19 127/75 95 Room Air 11/30/16 08:56 71 168/93 11/30/16 08:29 97.0 71 20 168/93 95 Room Air 11/30/16 04:00 97.9 75 18 125/71 100 Room Air 11/30/16 00:00 97.7 89 20 129/75 97 Room Air 11/29/16 23:20 Nasal Cannula 2.0 28 11/29/16 23:20 99 Nasal Cannula 2.0 28 11/29/16 23:19 84 16 Nasal Cannula 2.0 28 11/29/16 20:38 73 165/78 11/29/16 20:00 97.0 73 18 165/75 97 Room Air 11/29/16 16:00 97.7 72 16 164/74 95 Room Air General Appearance: no apparent distress, alert Neck: supple Cardiovascular: normal rate, regular rhythm Respiratory/Chest: lungs clear Abdomen: normal bowel sounds, non tender, soft Extremities: no swelling Intake and Output 11/29/16 11/30/16 19:00 07:00 Intake Total 770.0 ml 680.0 ml Output Total 450 ml Balance 320.0 ml 680.0 ml Intake Oral 400 ml 120 ml IV Total 370.0 ml 560.0 ml Output Urine Total 450 ml # Voids 3 Laboratory Tests Test 11/30/16 06:45 White Blood Count 9.0 K/UL (4.8-10.8) Red Blood Count 4.72 M/UL (4.20-5.40) Hemoglobin 14.9 G/DL (12.0-16.0) Hematocrit 45.9 % (37.0-47.0) Mean Corpuscular Volume 97 FL (80-99) Mean Corpuscular Hemoglobin 31.6 PG (27.0-31.0) H Mean Corpuscular Hemoglobin Concent 32.4 G/DL (32.0-36.0) Red Cell Distribution Width 13.2 % (11.6-14.8) Platelet Count 151 K/UL (150-450) Mean Platelet Volume 12.0 FL (6.5-10.1) H Neutrophils (%) (Auto) 47.0 % (45.0-75.0) Lymphocytes (%) (Auto) 22.1 % (20.0-45.0) Monocytes (%) (Auto) 16.5 % (1.0-10.0) H Eosinophils (%) (Auto) 13.4 % (0.0-3.0) H Basophils (%) (Auto) 1.1 % (0.0-2.0) Sodium Level 142 mEQ/L (135-145) Potassium Level 3.7 mEQ/L (3.4-4.9) Chloride Level 97 mEQ/L (98-107) L Carbon Dioxide Level 30 mEQ/L (20-30) Anion Gap 15 (5-15) Blood Urea Nitrogen 7 mg/dL (7-23) Creatinine 1.0 mg/dL (0.5-0.9) H Estimat Glomerular Filtration Rate mL/min (>60) Glucose Level 117 mg/dL (74-106) H Calcium Level 9.5 mg/dL (8.6-10.2) Amylase Level 57 U/L (10-110) Lipase 27 U/L (< 60) ROBERTO ARVIZU Nov 30, 2016 15:45
[2016-11-30] MEDS ORDERED: ASPIRIN81 MG ORAL (15:52)
[2016-11-30] MEDS ORDERED: NORVASC5 MG ORAL (15:52)
--- NOTE | 2016-11-30 15:53 | Pulmonology Progress Note ---
Assessment/Plan Problems: (1) Acute pancreatitis (2) Cholangitis (3) Costochondritis (4) ACS (acute coronary syndrome) Assessment/Plan abdominal US reviewed GI evaluation appreciated afebrile cardio following med/surg dvt prophylaxis dc home, d/w dr Sr and Dr. Rey Subjective ROS Limited/Unobtainable: No Interval Events: eating well Allergies: Coded Allergies: No Known Allergies (Verified Allergy, Mild, 11/08/08) Objective Last 24 Hour Vital Signs Date Time Temp Pulse Resp B/P Pulse Ox O2 Delivery O2 Flow Rate FiO2 11/30/16 11:22 97.5 75 19 127/75 95 Room Air 11/30/16 08:56 71 168/93 11/30/16 08:29 97.0 71 20 168/93 95 Room Air 11/30/16 04:00 97.9 75 18 125/71 100 Room Air 11/30/16 00:00 97.7 89 20 129/75 97 Room Air 11/29/16 23:20 Nasal Cannula 2.0 28 11/29/16 23:20 99 Nasal Cannula 2.0 28 11/29/16 23:19 84 16 Nasal Cannula 2.0 28 11/29/16 20:38 73 165/78 11/29/16 20:00 97.0 73 18 165/75 97 Room Air 11/29/16 16:00 97.7 72 16 164/74 95 Room Air Intake and Output 11/29/16 11/30/16 19:00 07:00 Intake Total 770.0 ml 680.0 ml Output Total 450 ml Balance 320.0 ml 680.0 ml Intake Oral 400 ml 120 ml IV Total 370.0 ml 560.0 ml Output Urine Total 450 ml # Voids 3 Objective General Appearance: WD/WN HEENT: normocephalic, atraumatic Respiratory/Chest: chest wall non-tender, lungs clear Cardiovascular: normal peripheral pulses, normal rate Abdomen: normal bowel sounds, soft, non tender Laboratory Tests 11/30/16 06:45: White Blood Count 9.0, Red Blood Count 4.72, Hemoglobin 14.9, Hematocrit 45.9, Mean Corpuscular Volume 97, Mean Corpuscular Hemoglobin 31.6H, Mean Corpuscular Hemoglobin Concent 32.4, Red Cell Distribution Width 13.2, Platelet Count 151, Mean Platelet Volume 12.0H, Neutrophils (%) (Auto) 47.0, Lymphocytes (%) (Auto) 22.1, Monocytes (%) (Auto) 16.5H, Eosinophils (%) (Auto) 13.4H, Basophils (%) ( Auto) 1.1, Sodium Level 142, Potassium Level 3.7, Chloride Level 97L, Carbon Dioxide Level 30, Anion Gap 15, Blood Urea Nitrogen 7, Creatinine 1.0H, Estimat Glomerular Filtration Rate , Glucose Level 117H, Calcium Level 9.5, Amylase Level 57, Lipase 27 Current Medications Medications (Trade) Dose Ordered Sig/Demetrio Route PRN Reason Start Time Stop Time Status Last Admin Dose Admin Acetaminophen (Tylenol) 650 mg Q4H PRN ORAL T>100.5 11/28/16 14:00 12/28/16 13:59 Albuterol/ Ipratropium (DuoNeb 0.5-3(2.5)mg/3ml) 3 ml Q4H PRN HHN Shortness of Breath 11/28/16 14:00 12/03/16 13:59 Amlodipine Besylate (Norvasc) 5 mg Q12HR ORAL 11/29/16 10:00 12/29/16 09:59 11/30/16 08:56 Aspirin (ASA) 162 mg DAILY ORAL 11/29/16 09:00 12/29/16 08:59 11/30/16 08:56 Clonidine HCl (Catapres) 0.1 mg EVERY 8 HOURS PRN ORAL For High Blood Pressure 11/29/16 09:45 12/29/16 09:44 Dextrose/ Electrolytes 1,000 ml @ 75 mls/hr [id number] IV 11/28/16 13:00 12/28/16 12:59 11/30/16 12:16 Heparin Sodium (Porcine) (Heparin 5000 units/ml) 5,000 units EVERY 12 HOURS SUBQ 11/28/16 21:00 12/28/16 20:59 11/30/16 08:58 Morphine Sulfate (Morphine Sulfate) 2 mg Q4H PRN IVP Moderate Pain (Pain Scale 4-6) 11/28/16 16:00 12/05/16 15:59 11/28/16 17:35 Morphine Sulfate (Morphine Sulfate) 4 mg Q4H PRN IVP Severe Pain (Pain Scale 7-10) 11/28/16 16:00 12/05/16 15:59 Nitroglycerin (Ntg) 0.4 mg Q5MIN X 3 DOSES PRN SL Prn Chest Pain 11/28/16 13:00 12/28/16 12:59 Ondansetron HCl (Zofran) 4 mg Q6H PRN IVP Nausea & Vomiting 11/28/16 13:00 12/28/16 12:59 Pantoprazole (Protonix) 40 mg DAILY IVP 11/29/16 09:00 12/29/16 08:59 11/30/16 08:57 Piperacillin Sod/ Tazobactam Sod/ Dextrose (Zosyn/D5W) 110 ml @ 27.5 mls/hr Q8HR IVPB 11/28/16 14:00 12/05/16 13:59 11/30/16 13:27 Polyethylene Glycol (Miralax) 17 gm DAILYPRN PRN ORAL Constipation 11/28/16 13:00 12/28/16 12:59 Temazepam (Restoril) 15 mg HSPRN PRN ORAL Insomnia 11/28/16 21:00 12/05/16 20:59 ELÍAS ALFREDO Nov 30, 2016 15:53
[2016-11-30 16:00] VITALS: BP 162/83
[2016-11-30] MEDS ORDERED: NORVASC10 MG ORAL (16:01)
--- NOTE | 2016-12-01 09:23 | Discharge Summary ---
Discharge Summary Hospital Course Date of Admission Nov 26, 2016 at 18:57 Date of Discharge Nov 30, 2016 at 18:28 Admitting Diagnosis ACS HPI Brooklyn Norris is a 81 year old female who was admitted on Nov 26, 2016 at 18:57 for Acute Coronary Syndrome Hospital Course dc summary #[id number] Discharge Medications New Medications: Amlodipine Besylate (Norvasc) 5 Mg Tablet 5 MG ORAL Q12HR for 30 Days, TAB Aspirin* (Aspirin*) 81 Mg Tab.chew 162 MG ORAL DAILY for 30 Days, TAB Continued Medications: Amlodipine Besylate (Norvasc) 10 Mg Tablet 10 MG ORAL DAILY, TAB Discharge Condition Upon Discharge: stable Discharge Disposition Patient was discharged to Home with Home Health(06) Discharge Diagnoses: Discharge Instructions Discharge Instructions Special Instructions I have been assigned to complete a D/C Summary on this account. I was not involved in the patient management Antoinette Mcqueen NP ([place]) Dec 01, 2016 09:23
--- NOTE | 2016-12-01 09:57 | Cardiology Report ---
APPROVED REPORT EXAM: Two-dimensional and M-mode echocardiogram with Doppler and color Doppler. INDICATION Left Ventricular Function M-Mode DIMENSIONS IVSd1.9 (0.7-1.1cm)Left Atrium (MM)4.2 (1.6-4.0cm) LVDd4.9 (3.5-5.6cm)Aortic Root3.6 (2.0-3.7cm) PWd1.4 (0.7-1.1cm)Aortic Cusp Exc.1.5 (1.5-2.0cm) LVDs2.8 (2.5-4.0cm) PWs2.0 cm Normal left ventricular chamber size, systolic function and wall motion. Left ventricular ejection fraction estimated to be 50-55 %. Mild left ventricular hypertrophy. Anterior Echo-free space, may be due to pericardial fat or effusion. All other cardiac chamber sizes are within normal limits. Mild focal aortic valve sclerosis with adequate cusp excursion. Mildly thickened mitral valve leaflets with normal excursion. Mild mitral annulus and aortic root calcification. Normal pulmonic valve. Normal tricuspid valve structure. IVC at normal size with physiologic collapse. A color flow and spectral Doppler study was performed and revealed: Mild to moderate aortic regurgitation. Trace mitral regurgitation. Mitral diastolic velocities suggest reduced left ventricular relaxation (Grade I). Mild tricuspid regurgitation. Tricuspid systolic velocities suggests peak right ventricular systolic pressure of 15 mmHg. No pulmonic regurgitation present.
--- NOTE | 2016-12-01 23:38 | Discharge Summary 2 SIG ---
DATE OF ADMISSION: 11/26/2016 DATE OF DISCHARGE: 11/30/2016 REASON FOR ADMISSION: 81-year-old female presented with epigastric and chest pressure, which started last night prior to admission around 2 a.m. It was worse in the morning. The patient took her routine medication, including aspirin. She described the pain with radiation to the back. She felt weak. Pain was 8 to 9 on a scale of 1 to 10. The patient denied fevers, chills, cough, congestion. Admitted to [place] [id number] in the morning, prior to arrival to ED. Emesis looked like an oil, but no blood. Denied diarrhea. Denied black stools, bright red blood per rectum. Denied dysuria or flank pain. The patient had leg edema, worse in the morning. Of note, the patient with morbid obesity. She denied calf tenderness. Chest pain and abdominal pain never happened to her before. She never had any cardiac evaluation. The patient has a history of hypertension as a risk factor for cardiac disease, but no history of smoking or diabetes, nor family history. Workup in the emergency room revealed first troponin negative. EKG showed normal sinus rhythm. No ST changes. No ischemic changes. No ectopy. No PVC. ProBNP was 487. Chest x-ray revealed no acute cardiopulmonary disease, but slight cardiomegaly and wide mediastinum. Chest, abdomen, and pelvis CTA were done in the emergency room and revealed no evidence of thoracic or aortic abdominal aneurysm or dissection. No evidence of acute pulmonary emboli. Right pulmonary arterial dilation raised concern for pulmonary arterial hypertension. Cardiomegaly. A 4.5 cm heavily calcified left renal mass noted with suspicion of a chronic postinflammatory lesion that may need further evaluation. In the emergency department, blood pressure was severely elevated at 238/94. The patient was given antihypertensive medication. Pulse oximetry was stable on room air. Noted elevated lipase of 664. Pain management provided. Pain improved, but still with pain. The patient started on IV fluids and transferred to telemetry. ADMITTING DIAGNOSES: Chest pain Possible acute coronary syndrome hypertensive urgency possible pancreatitis morbid obesity HOSPITAL STAY: The patient was admitted on telemetry. The patient was initially NPO. GI followed. Lipase was trending down, and final lipase and amylase were negative. Per GI, it was likely an element of acute pancreatitis on chronic. Pain management provided. Antiemetic provided as needed. Started on PPI. Diet slowly advanced. DVT prophylaxis provided. Blood pressure was controlled with a calcium channel whitney. Cardiology consult requested due to the complaint of the chest pain. Serial troponin were negative. Echocardiogram revealed preserved ejection fraction of 50% to 55%, right ventricular systolic pressure of 15, and mild left ventricular hypertrophy. The patient had leukocytosis for one day only, which resolved, likely reactive. Blood pressure was stable with the current regimen. DVT prophylaxis provided. Acute DC was ruled out with negative serial troponin and negative EKG. Chest pain likely of musculoskeletal origin, possibly costochondritis. The patient recommended to follow up with workup for left renal mass as outpatient. DISCHARGE DIAGNOSES: 1. Acute on chronic pancreatitis. 2. Chest pain likely due to costochondritis. 3. Likely costochondritis ( acute coronary syndrome was ruled out) . 4. Hypertensive urgency, resolved. 5. Morbid obesity. 6. Left renal mass DISCHARGE MEDICATIONS: See medication reconciliation list. DISCHARGE INSTRUCTIONS: The patient is discharged home with home health services. Follow up with primary medical doctor. Recommended workup for left renal mass as an outpatient. Edinson Wyatt M.D. I have been assigned to dictate discharge summary on this account and I was not involved in the patient's management. Antoinette Hutsonjake N.PEusebio DR: ALFONSO JOB#: [id number] CC: MIRZA
== END 2016-11-30 18:28 | disposition home health service (06) | DRG 282 ==
LOC: ENRESERVTM → ENRESERVDT → EMR 16:30 → 2E 18:57 → EDBEDREQ 19:33 → 4E 11-28 12:18
DX: K85.90 Acute pancreatitis without necrosis or infection, unspecified (principal); K83.0 Cholangitis; D69.6 Thrombocytopenia, unspecified; E66.01 Morbid (severe) obesity due to excess calories; E88.09 Other disorders of plasma-protein metabolism, not elsewhere classified; M94.0 Chondrocostal junction syndrome [Tietze]; E78.5 Hyperlipidemia, unspecified; R74.8 Abnormal levels of other serum enzymes; E78.00 Pure hypercholesterolemia, unspecified; K57.90 Diverticulosis of intestine, part unspecified, without perforation or abscess without bleeding; K42.9 Umbilical hernia without obstruction or gangrene; M88.88 Osteitis deformans of other bones; N28.89 Other specified disorders of kidney and ureter; K86.1 Other chronic pancreatitis; I16.0 Hypertensive urgency; Z23 Encounter for immunization
CPT/HCPCS: 36415; 71010; 71275; 72191; 74175; 76700; 80048; 80053; 80061; 82150; 82550; 82962; 82977; 83690; 83880; 84443; 84484; 85025; 85610; 85730; 86140; 86900; 86901; 90732; 93005; 93306; 94664; 94760; J2405; J8499; Q2036

== ENCOUNTER 2017-07-22 02:24 | Inpatient (IN) | payer MEDICAID, MEDICARE ==
[~2017-07-22] VITALS: Ht 167.6 cm; Wt 97.1 kg
[~2017-07-22 02:24] MED LIST: ASPIRIN81 MG ORAL; NKM; NORVASC10 MG ORAL; NORVASC5 MG ORAL
--- NOTE | 2017-07-22 02:35 | Emergency Room Report ---
History of Present Illness General Chief Complaint: Abdominal Pain Source: Patient, EMS Present Illness HPI This is a 81-year-old female who presented after increased abdominal pain. Patient gradual onset of symptoms. Patient prior history of infiltrative pancreatic cancer. She was noted to have prior paracentesis with fluid showing adenocarcinoma. Prior MRI showed small peripancreatic lymph nodes. She recently had a paracentesis performed and had fluid drained from abdomen about 2 liters. Patient stated that she had been having increased pain to the abdominal area. She denied any fever. The pain is diffuse throughout her abdomen. Allergies: Coded Allergies: No Known Allergies (Verified , 11/08/08) Patient History Past Medical History: see triage record Now: No Reviewed Nursing Documentation: PMH: Agreed, PSxH: Agreed Nursing Documentation-PMH Hx Cardiac Problems: No Hx Hypertension: Yes Hx Cancer: No Hx Gastrointestinal Problems: No Hx Neurological Problems: No Review of Systems All Other Systems: negative except mentioned in HPI Physical Exam Vital Signs Date Time Temp Pulse Resp B/P (MAP) Pulse Ox O2 Delivery O2 Flow Rate FiO2 07/22/17 02:29 97.3 111 13 148/90 97 Room Air Sp02 EP Interpretation: reviewed, normal General Appearance: normal inspection, alert, non-toxic, mild distress, Chronically Ill Head: atraumatic ENT: normal ENT inspection, hearing grossly normal, normal voice Neck: normal inspection, full range of motion, supple, no bony tend Respiratory: normal inspection, lungs clear, normal breath sounds, no respiratory distress, no retraction, no wheezing Cardiovascular #1: regular rate, rhythm, no edema Gastrointestinal: normal inspection, soft, no guarding, distended, hernia Genitourinary: no CVA tenderness Musculoskeletal: normal inspection, back normal, normal range of motion Neurologic: normal inspection, alert, responsive, 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 Differential diagnoses included ischemic bowel, appendicitis, perforated viscus, abdominal aortic aneurysm, inferior myocardial infarction, viral gastroenteritis Because of complexity of patient's case laboratory testing and imaging studies were ordered.Patient was noted to have evidence of coffee-ground emesis. The patient started IV pain medication as well as IV fluids acid blockers. EKG interpretation normal sinus rhythm with a rate of [address] or T wave changes.The patient had some improvement in the pain after pain medication. Patient was noted to have evidence of prior venous thrombosis and was previously treated with subcutaneous heparin. This is being held temporarily due to patient's recent hematemesis. Dr. Edinson Wyatt was contacted for inpatient management Labs Test 07/22/17 02:40 White Blood Count 8.7 K/UL (4.8-10.8) Red Blood Count 4.37 M/UL (4.20-5.40) Hemoglobin 14.1 G/DL (12.0-16.0) Hematocrit 44.5 % (37.0-47.0) Mean Corpuscular Volume 102 FL (80-99) Mean Corpuscular Hemoglobin 32.3 PG (27.0-31.0) Mean Corpuscular Hemoglobin Concent 31.6 G/DL (32.0-36.0) Red Cell Distribution Width 15.4 % (11.6-14.8) Platelet Count 168 K/UL (150-450) Mean Platelet Volume 9.5 FL (6.5-10.1) Neutrophils (%) (Auto) 77.4 % (45.0-75.0) Lymphocytes (%) (Auto) 7.3 % (20.0-45.0) Monocytes (%) (Auto) 12.1 % (1.0-10.0) Eosinophils (%) (Auto) 2.7 % (0.0-3.0) Basophils (%) (Auto) 0.6 % (0.0-2.0) Prothrombin Time 10.9 SEC (9.30-11.50) Prothromb Time International Ratio 1.0 (0.9-1.1) Activated Partial Thromboplast Time 24 SEC (23-33) EKG Diagnostic Results Rate: tachycardiac Rhythm: NSR ST Segments: no acute changes Rhythm Strip Diag. Results EP Interpretation: yes Rhythm: NSR - 104, no PVC's, no ectopy Last Vital Signs Date Time Temp Pulse Resp B/P (MAP) Pulse Ox O2 Delivery O2 Flow Rate FiO2 07/22/17 02:29 97.3 111 13 148/90 97 Room Air Status: unchanged Disposition: ADMITTED INPATIENT Condition: Rodolfo Fitzgerald Jul 22, 2017 02:35
[2017-07-22] MEDS ORDERED: UNOBMED (02:40)
[2017-07-22 03:00] LABS: BASOPHILS % (AUTO) 0.6 % (0.0-2.0); EOSINOPHILS % (AUTO) 2.7 % (0.0-3.0); LYMPHOCYTES % (AUTO) 7.3 % (20.0-45.0); MEAN CORPUSCULAR HEMOGLOBIN 32.3 PG (27.0-31.0); MEAN CORPUSCULAR HGB CONC 31.6 G/DL (32.0-36.0); MEAN CORPUSCULAR VOLUME 102 FL (80-99); MEAN PLATELET VOLUME 9.5 FL (6.5-10.1); MONOCYTES % (AUTO) 12.1 % (1.0-10.0); NEUTROPHILS % (AUTO) 77.4 % (45.0-75.0); PLATELET COUNT 168 K/UL (150-450); RED BLOOD COUNT 4.37 M/UL (4.20-5.40); RED CELL DISTRIBUTION WIDTH 15.4 % (11.6-14.8); WHITE BLOOD COUNT 8.7 K/UL (4.8-10.8)
[2017-07-22] MEDS ORDERED: Morphine Sulfate 4mg/ml Inj IVP ONE (03:00)
[2017-07-22 03:11] LABS: PROTHROMBIN TIME 10.9 SEC (9.30-11.50)
[2017-07-22 03:12] VITALS: BP 136/78
[2017-07-22 03:25] LABS: ALANINE AMINOTRANSFERASE 9 U/L (12-78); ALBUMIN/GLOBULIN RATIO 0.5 (1.0-2.7); ANION GAP 9 mmol/L (5-15); ASPARTATE AMINO TRANSFERASE 18 U/L (15-37); CALCIUM 9.4 MG/DL (8.5-10.1); CARBON DIOXIDE 27 MMOL/L (21-32); CHLORIDE 103 MMOL/L (98-107); CREATININE 1.3 MG/DL (0.55-1.30); LIPASE 80 U/L (73-393); POTASSIUM 3.9 MMOL/L (3.5-5.1); SODIUM 139 MMOL/L (136-145); TOTAL PROTEIN 7.9 G/DL (6.4-8.2)
[2017-07-22] MEDS ORDERED: Pantoprazole Inj IVP ONE (03:30)
[2017-07-22] MEDS ORDERED: Morphine Sulfate 4mg/ml Inj IVP PRN (06:45)
[2017-07-22] MEDS ORDERED: Nitroglycerin Subl 0.4mg tab SL PRN (06:45)
[2017-07-22] MEDS ORDERED: Mylanta II UD 30ml ORAL PRN (06:45)
[2017-07-22] MEDS: D5NS 1,000 ML IV SCH ×3 (07:57→22:26)
[2017-07-22 08:00] VITALS: BP 132/71
[2017-07-22 12:00] VITALS: BP 140/71
--- NOTE | 2017-07-22 12:03 | Diagnostic Imaging Report ---
Indication: Dyspnea Comparison: 11/26/16 A single view chest radiograph was obtained. Findings: No definite infiltrate or pulmonary vascular congestion identified. The heart is enlarged. The aorta is mildly enlarged consistent with atherosclerotic vascular disease. The bones are osteopenic. Impression: No acute disease
[2017-07-22] MEDS ORDERED: Morphine Sulfate 10mg/5ml Oral Soln ud ORAL PRN (13:00)
--- NOTE | 2017-07-22 13:02 | History and Physical ---
History of Present Illness General Date patient seen: Jul 22, 2017 Reason for Hospitalization: Abdominal Pain Present Illness HPI 81-year-old female with recently diagnosed pancreatic cancer, presented after increased abdominal pain wtih gradual onset of symptoms. She recently had a paracentesis performed and had fluid drained from abdomen about 2 liters. she was initially wiped out after the paracentesis and felt very week then the pain started, which became intractable. She might have had some hematemesis as well. Allergies: Coded Allergies: No Known Allergies (Verified , 11/08/08) Medication History Scheduled Amlodipine Besylate (Norvasc), 5 MG ORAL Q12HR Amlodipine Besylate (Norvasc), 10 MG ORAL DAILY, (Reported) Aspirin* (Aspirin*), 162 MG ORAL DAILY No Known Medications* (NKM - No Known Medications*), 0 ., (Reported) Miscellaneous Medications Unable to Obtain Medications (Unable To Obtain Meds), (Reported) Patient History Healthcare decision maker Resuscitation status Do Not Resuscitate Advanced Directive on File No Past Medical/Surgical History Past Medical/Surgical History: (1) Pancreatic cancer (2) HTN (hypertension) Review of Systems All Other Systems: negative except mentioned in HPI Physical Exam General Appearance: WD/WN, lethargic Lines, tubes and drains: peripheral, PICC HEENT: normocephalic, atraumatic Neck: non-tender, normal alignment Cardiovascular/Chest: normal peripheral pulses, normal rate Abdomen: normal bowel sounds, non tender Genitourinary/Rectal: normal genital exam, normal rectal exam Skin Exam: normal pigmentation 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 Last 24 Hour Vital Signs Date Time Temp Pulse Resp B/P (MAP) Pulse Ox O2 Delivery O2 Flow Rate FiO2 07/22/17 12:00 97.7 86 20 140/71 97 Nasal Cannula 2.0 07/22/17 09:51 99 Nasal Cannula 2.0 28 07/22/17 09:51 Nasal Cannula 2.0 28 07/22/17 09:19 90 132/71 07/22/17 08:00 97.9 90 21 132/71 100 Nasal Cannula 2.0 07/22/17 04:52 97.3 102 21 136/78 98 Nasal Cannula 2.0 07/22/17 03:12 97.3 102 21 136/78 98 Nasal Cannula 2.0 07/22/17 02:29 97.3 111 13 148/90 97 Room Air Laboratory Tests Test 07/22/17 02:40 White Blood Count 8.7 K/UL (4.8-10.8) Red Blood Count 4.37 M/UL (4.20-5.40) Hemoglobin 14.1 G/DL (12.0-16.0) Hematocrit 44.5 % (37.0-47.0) Mean Corpuscular Volume 102 FL (80-99) H Mean Corpuscular Hemoglobin 32.3 PG (27.0-31.0) H Mean Corpuscular Hemoglobin Concent 31.6 G/DL (32.0-36.0) L Red Cell Distribution Width 15.4 % (11.6-14.8) H Platelet Count 168 K/UL (150-450) Mean Platelet Volume 9.5 FL (6.5-10.1) Neutrophils (%) (Auto) 77.4 % (45.0-75.0) H Lymphocytes (%) (Auto) 7.3 % (20.0-45.0) L Monocytes (%) (Auto) 12.1 % (1.0-10.0) H Eosinophils (%) (Auto) 2.7 % (0.0-3.0) Basophils (%) (Auto) 0.6 % (0.0-2.0) Prothrombin Time 10.9 SEC (9.30-11.50) Prothromb Time International Ratio 1.0 (0.9-1.1) Activated Partial Thromboplast Time 24 SEC (23-33) Sodium Level 139 MMOL/L (136-145) Potassium Level 3.9 MMOL/L (3.5-5.1) Chloride Level 103 MMOL/L (98-107) Carbon Dioxide Level 27 MMOL/L (21-32) Anion Gap 9 mmol/L (5-15) Blood Urea Nitrogen 13 mg/dL (7-18) Creatinine 1.3 MG/DL (0.55-1.30) Estimat Glomerular Filtration Rate mL/min (>60) Glucose Level 146 MG/DL (74-106) H Lactic Acid Level 1.60 mmol/L (0.66-2.22) Calcium Level 9.4 MG/DL (8.5-10.1) Total Bilirubin 0.9 MG/DL (0.2-1.0) Aspartate Amino Transf (AST/SGOT) 18 U/L (15-37) Alanine Aminotransferase (ALT/SGPT) 9 U/L (12-78) L Alkaline Phosphatase 101 U/L (46-116) Total Creatine Kinase 173 U/L (26-308) Creatine Kinase MB 1.0 NG/ML (0.0-3.6) Creatine Kinase MB Relative Index 0.5 Troponin I 0.017 ng/mL (0.000-0.056) Total Protein 7.9 G/DL (6.4-8.2) Albumin 2.6 G/DL (3.4-5.0) L Globulin 5.3 g/dL Albumin/Globulin Ratio 0.5 (1.0-2.7) L Lipase 80 U/L (73-393) Height (Feet): 5 Height (Inches): 6.00 Weight (Pounds): 214 Medications Current Medications Medications (Trade) Dose Ordered Sig/Demetrio Route PRN Reason Start Time Stop Time Status Last Admin Dose Admin Acetaminophen (Tylenol) 650 mg Q4H PRN ORAL T>100.5 07/22/17 06:45 08/21/17 06:44 Al Hydroxide/Mg Hydroxide (Mylanta II) 30 ml Q6H PRN ORAL dyspepsia 07/22/17 06:45 08/21/17 06:44 Amlodipine Besylate (Norvasc) 5 mg Q12HR ORAL 07/22/17 09:00 08/21/17 08:59 07/22/17 09:19 Dextrose (Dextrose 50%) STAT PRN IV Hypoglycemia 07/22/17 06:45 08/21/17 06:44 Dextrose/Sodium Chloride 1,000 ml @ 100 mls/hr Q10H IV 07/22/17 07:00 08/21/17 06:59 07/22/17 07:57 Diphenhydramine HCl (Benadryl) 25 mg Q6H PRN ORAL Itching/Pruritis 07/22/17 06:45 08/21/17 06:44 Morphine Sulfate (Morphine Sulfate) 2 mg Q4H PRN IVP Severe Pain (Pain Scale 7-10) 07/22/17 06:45 07/29/17 06:44 07/22/17 12:10 Morphine Sulfate (Morphine 10mg/ 5ml Oral Soln) 10 mg Q4H PRN ORAL For Pain 07/22/17 13:00 07/29/17 12:59 UNV Nitroglycerin (Ntg) 0.4 mg Q5M X 3 DOSES PRN SL Prn Chest Pain 07/22/17 06:45 08/21/17 06:44 Ondansetron HCl (Zofran) 4 mg Q6H PRN IVP Nausea & Vomiting 07/22/17 06:45 08/21/17 06:44 Polyethylene Glycol (Miralax) 17 gm HSPRN PRN ORAL Constipation 07/22/17 21:00 08/21/17 20:59 Temazepam (Restoril) 15 mg HSPRN PRN ORAL Insomnia 07/22/17 21:00 07/29/17 20:59 Assessment/Plan Problem List: (1) Pancreatic cancer ICD Codes: C25.9 - Malignant neoplasm of pancreas, unspecified SNOMED: 615082452 (2) Epigastric abdominal pain ICD Codes: R10.13 - Epigastric pain SNOMED: 85337292 Assessment/Plan symptomatic treatment pain management social service consult pt will benefit and qualify for hospice at home. ELÍAS ALFREDO Jul 22, 2017 13:02
[2017-07-22 16:00] VITALS: BP 156/74
--- NOTE | 2017-07-22 17:58 | GI Initial Consult Note ---
ShaniaJulienne Owens N.P. 07/22/17 1758: History of Present Illness General Date patient seen: Jul 22, 2017 Time patient seen: 10:00 Reason for Hospitalization: Abdominal Pain Referring physician: ELÍAS ROSALES Reason for Consultation: GI BLEED Present Illness HPI This is a 81-year-old female who presented after increased abdominal pain. Patient gradual onset of symptoms. Patient prior history of infiltrative pancreatic cancer. She was noted to have prior paracentesis with fluid showing adenocarcinoma. Prior MRI showed small peripancreatic lymph nodes. She recently had a paracentesis performed and had fluid drained from abdomen about 2 liters. Patient stated that she had been having increased pain to the abdominal area. She denied any fever. The pain is diffuse throughout her abdomen. GI consulted for GI bleed. HPI as noted above. Pt seen on floor, awake A&Ox4 NAD with no active s/sx of N/V/D. She denies any GI bleed, states people have been assuming she had one. Patient was a recent admit at [facility] where she had undergone a paracentesis. Her abdomen is distended, but soft. No other general complaints per patient. CBC unremarkable. No leukocytosis noted. Lipase WNL. Home Meds Active Scripts Aspirin* (ASPIRIN*) 81 Mg Tab.chew, 162 MG ORAL DAILY for 30 Days, TAB Prov:ELÍAS ALFREDO 11/30/16 Amlodipine Besylate (Norvasc) 5 Mg Tablet, 5 MG ORAL Q12HR for 30 Days, TAB Prov:ELÍAS ALFREDO 11/30/16 Reported Medications Unable to Obtain Medications (UNABLE TO OBTAIN MEDS) 1 Ea Ea 07/22/17 Amlodipine Besylate (Norvasc) 10 Mg Tablet, 10 MG ORAL DAILY, TAB 11/30/16 No Known Medications* (NKM - No Known Medications*) ., 0 ., 0 Refills 11/26/16 Med list reviewed/reconciled: Yes Allergies: Coded Allergies: No Known Allergies (Verified , 11/08/08) Patient History History Provided By: Patient, Medical Record PMH Narrative Past Medical History: see triage record Now: No Reviewed Nursing Documentation: PMH: Agreed, PSxH: Agreed Nursing Documentation-PMH Hx Cardiac Problems: No Hx Hypertension: Yes Hx Cancer: No Hx Gastrointestinal Problems: No Hx Neurological Problems: No Social History: Denies: smoking, alcohol use, drug use, other Review of Systems All Other Systems: negative except mentioned in HPI Physical Exam Vital Signs Date Time Temp Pulse Resp B/P (MAP) Pulse Ox O2 Delivery O2 Flow Rate FiO2 07/22/17 02:29 97.3 111 13 148/90 97 Room Air 07/22/17 03:12 2.0 07/22/17 09:51 28 Sp02 EP Interpretation: reviewed, normal Labs Laboratory Tests Test 07/22/17 02:40 White Blood Count 8.7 K/UL (4.8-10.8) Red Blood Count 4.37 M/UL (4.20-5.40) Hemoglobin 14.1 G/DL (12.0-16.0) Hematocrit 44.5 % (37.0-47.0) Mean Corpuscular Volume 102 FL (80-99) H Mean Corpuscular Hemoglobin 32.3 PG (27.0-31.0) H Mean Corpuscular Hemoglobin Concent 31.6 G/DL (32.0-36.0) L Red Cell Distribution Width 15.4 % (11.6-14.8) H Platelet Count 168 K/UL (150-450) Mean Platelet Volume 9.5 FL (6.5-10.1) Neutrophils (%) (Auto) 77.4 % (45.0-75.0) H Lymphocytes (%) (Auto) 7.3 % (20.0-45.0) L Monocytes (%) (Auto) 12.1 % (1.0-10.0) H Eosinophils (%) (Auto) 2.7 % (0.0-3.0) Basophils (%) (Auto) 0.6 % (0.0-2.0) Prothrombin Time 10.9 SEC (9.30-11.50) Prothromb Time International Ratio 1.0 (0.9-1.1) Activated Partial Thromboplast Time 24 SEC (23-33) Sodium Level 139 MMOL/L (136-145) Potassium Level 3.9 MMOL/L (3.5-5.1) Chloride Level 103 MMOL/L (98-107) Carbon Dioxide Level 27 MMOL/L (21-32) Anion Gap 9 mmol/L (5-15) Blood Urea Nitrogen 13 mg/dL (7-18) Creatinine 1.3 MG/DL (0.55-1.30) Estimat Glomerular Filtration Rate mL/min (>60) Glucose Level 146 MG/DL (74-106) H Lactic Acid Level 1.60 mmol/L (0.66-2.22) Calcium Level 9.4 MG/DL (8.5-10.1) Total Bilirubin 0.9 MG/DL (0.2-1.0) Aspartate Amino Transf (AST/SGOT) 18 U/L (15-37) Alanine Aminotransferase (ALT/SGPT) 9 U/L (12-78) L Alkaline Phosphatase 101 U/L (46-116) Total Creatine Kinase 173 U/L (26-308) Creatine Kinase MB 1.0 NG/ML (0.0-3.6) Creatine Kinase MB Relative Index 0.5 Troponin I 0.017 ng/mL (0.000-0.056) Total Protein 7.9 G/DL (6.4-8.2) Albumin 2.6 G/DL (3.4-5.0) L Globulin 5.3 g/dL Albumin/Globulin Ratio 0.5 (1.0-2.7) L Lipase 80 U/L (73-393) General Appearance: well appearing, no apparent distress, alert Head: normocephalic EENT: PERRL/EOMI, normal ENT inspection Neck: supple Respiratory: normal breath sounds, no respiratory distress Cardiovascular: normal rate Gastrointestinal: normal inspection, non tender, soft, distended, ascites Rectal: deferred Genitourinary: no CVA tenderness Musculoskeletal: normal inspection, back normal Neurologic: normal inspection, alert, oriented x3, responsive Psychiatric: normal inspection, judgement/insight normal, memory normal Skin: normal inspection, normal color, no rash, warm/dry, palpation normal, well hydrated Lymphatic: normal inspection, no adenopathy Current Medications Current Medications Medications (Trade) Dose Ordered Sig/Demetrio Route PRN Reason Start Time Stop Time Status Last Admin Dose Admin Acetaminophen (Tylenol) 650 mg Q4H PRN ORAL T>100.5 07/22/17 06:45 08/21/17 06:44 Acetaminophen/ Hydrocodone Bitart ([place] 10/325) 1 ea Q4H PRN ORAL Pain 4-10 07/22/17 16:00 07/29/17 15:59 Al Hydroxide/Mg Hydroxide (Mylanta II) 30 ml Q6H PRN ORAL dyspepsia 07/22/17 06:45 08/21/17 06:44 Amlodipine Besylate (Norvasc) 5 mg Q12HR ORAL 07/22/17 09:00 08/21/17 08:59 07/22/17 09:19 Dextrose (Dextrose 50%) STAT PRN IV Hypoglycemia 07/22/17 06:45 08/21/17 06:44 Dextrose/Sodium Chloride 1,000 ml @ 100 mls/hr Q10H IV 07/22/17 07:00 08/21/17 06:59 07/22/17 07:57 Diphenhydramine HCl (Benadryl) 25 mg Q6H PRN ORAL Itching/Pruritis 07/22/17 06:45 08/21/17 06:44 Morphine Sulfate (Morphine Sulfate) 2 mg Q4H PRN IVP SEVERE BREAKTHROUGH PAIN 07/22/17 13:15 07/29/17 13:14 Nitroglycerin (Ntg) 0.4 mg Q5M X 3 DOSES PRN SL Prn Chest Pain 07/22/17 06:45 08/21/17 06:44 Ondansetron HCl (Zofran) 4 mg Q6H PRN IVP Nausea & Vomiting 07/22/17 06:45 08/21/17 06:44 07/22/17 15:31 Polyethylene Glycol (Miralax) 17 gm HSPRN PRN ORAL Constipation 07/22/17 21:00 08/21/17 20:59 Temazepam (Restoril) 15 mg HSPRN PRN ORAL Insomnia 07/22/17 21:00 07/29/17 20:59 GI: Plan Problems: (1) Hypoalbuminemia (2) Alkaline phosphatase elevation (3) Pancreatic cancer (4) Epigastric abdominal pain Plan s/p paracentesis order abdominal U/S OB stool r/o GI bleed monitor H&H, prn transfusions fu b12/folate levels H2B FLD pain mgmt fu labs Discussed with Dr. Allison. Thank you for this patient referral, we will follow. ISIDRO ALLISON 07/23/17 0956: History of Present Illness General Reason for Hospitalization: Abdominal Pain Present Illness Home Meds Active Scripts Aspirin* (ASPIRIN*) 81 Mg Tab.chew, 162 MG ORAL DAILY for 30 Days, TAB Prov:MAUREEN ALFREDOALI 11/30/16 Amlodipine Besylate (Norvasc) 5 Mg Tablet, 5 MG ORAL Q12HR for 30 Days, TAB Prov:ZARRABI,MIRALI 11/30/16 Reported Medications Unable to Obtain Medications (UNABLE TO OBTAIN MEDS) 1 Ea Ea 07/22/17 Amlodipine Besylate (Norvasc) 10 Mg Tablet, 10 MG ORAL DAILY, TAB 11/30/16 No Known Medications* (NKM - No Known Medications*) ., 0 ., 0 Refills 11/26/16 Allergies: Coded Allergies: No Known Allergies (Verified , 11/08/08) GI: Plan Plan The patient was seen and examined at bedside and all new and available data was reviewed in the patients chart. I agree with the above findings, impression and plan. (Patient seen earlier today. Signature stamp does not reflect patient encounter time.). - MD Shania [facility]Qu[facility] Roman N.PEusebio Jul 22, 2017 17:58 ISIDRO ALLISON Jul 23, 2017 09:56
[2017-07-22 20:00] VITALS: BP 135/67
[2017-07-22] MEDS ORDERED: Miralax 17gm pkt ORAL PRN (21:00)
[2017-07-23] VITALS (7 sets, daily range): BP systolic 112–141; BP diastolic 68–81
[2017-07-23 06:57] LABS: INR 1.1 (0.9-1.1); PROTHROMBIN TIME 11.5 SEC (9.30-11.50)
[2017-07-23 07:05] LABS: MEAN CORPUSCULAR HEMOGLOBIN 32.8 PG (27.0-31.0); MEAN CORPUSCULAR HGB CONC 31.4 G/DL (32.0-36.0); MEAN CORPUSCULAR VOLUME 105 FL (80-99); MEAN PLATELET VOLUME 9.9 FL (6.5-10.1); PLATELET COUNT 131 K/UL (150-450); RED BLOOD COUNT 3.98 M/UL (4.20-5.40); RED CELL DISTRIBUTION WIDTH 15.8 % (11.6-14.8); WHITE BLOOD COUNT 7.4 K/UL (4.8-10.8)
[2017-07-23 07:41] LABS: ALANINE AMINOTRANSFERASE 7 U/L (12-78); ALBUMIN/GLOBULIN RATIO 0.5 (1.0-2.7); AMYLASE 17 U/L (25-115); ANION GAP 8 mmol/L (5-15); ASPARTATE AMINO TRANSFERASE 16 U/L (15-37); CALCIUM 8.9 MG/DL (8.5-10.1); CARBON DIOXIDE 31 MMOL/L (21-32); CHLORIDE 108 MMOL/L (98-107); CREATININE 1.4 MG/DL (0.55-1.30); LIPASE 45 U/L (73-393); POTASSIUM 4.1 MMOL/L (3.5-5.1); SODIUM 147 MMOL/L (136-145); TOTAL PROTEIN 6.9 G/DL (6.4-8.2)
[2017-07-23] MEDS: Morphine Sulfate 4mg/ml Inj IVP PRN ×2 (07:59→09:58)
[2017-07-23 08:05] LABS: FOLIC ACID 7.9 NG/ML (3.1-17.5)
[2017-07-23 09:07] LABS: ANISOCYTOSIS 1+; BAND NEUTROPHILS % (MANUAL) 0 % (0-8); BASOPHILS % (MANUAL) 0 % (0-2); EOSINOPHILS % (MANUAL) 4 % (0-3); LYMPHOCYTES % (MANUAL) 18 % (20-45); MACROCYTES 1+; NEUTROPHILS % (MANUAL) 64 % (45-75); PLATELET ESTIMATE ADEQUATE; PLATELET MORPHOLOGY NORMAL; TOTAL CELLS COUNTED 100
--- NOTE | 2017-07-23 10:45 | GI Progress Note ---
Assessment/Plan Problems: (1) Alkaline phosphatase elevation ICD Codes: R74.8 - Abnormal levels of other serum enzymes SNOMED: 285429465 (2) Hypoalbuminemia ICD Codes: E88.09 - Other disorders of plasma-protein metabolism, not elsewhere classified SNOMED: 164712345 (3) Epigastric abdominal pain ICD Codes: R10.13 - Epigastric pain SNOMED: 81303055 (4) Pancreatic cancer ICD Codes: C25.9 - Malignant neoplasm of pancreas, unspecified SNOMED: 015980811 Status: unchanged Status Narrative Discussed with Dr. Schwartz. Assessment/Plan s/p paracentesis fu abdominal U/S OB stool r/o GI bleed monitor H&H, prn transfusions H2B FLD pain mgmt fu labs The patient was seen and examined at bedside and all new and available data was reviewed in the patients chart. I agree with the above findings, impression and plan. (Patient seen earlier today. Signature stamp does not reflect patient encounter time.). - Umm Schwartz MD Subjective Gastrointestinal/Abdominal: Reports: abdomen distended Subjective N/V Objective Last 24 Hour Vital Signs Date Time Temp Pulse Resp B/P (MAP) Pulse Ox O2 Delivery O2 Flow Rate FiO2 07/23/17 08:41 98.6 93 18 141/70 99 Room Air 07/23/17 08:02 Nasal Cannula 2.0 28 07/23/17 08:01 99 Nasal Cannula 2.0 28 07/23/17 04:51 97.9 84 20 133/71 97 Room Air 84 07/23/17 03:42 91 07/23/17 00:53 97.7 89 16 117/73 94 Room Air 07/23/17 00:12 88 07/23/17 00:00 97.7 89 16 117/73 94 Room Air 07/22/17 22:20 88 135/67 07/22/17 20:01 99 Nasal Cannula 2.0 28 07/22/17 20:01 Nasal Cannula 2.0 28 07/22/17 20:00 98.2 88 16 135/67 97 Nasal Cannula 2.0 07/22/17 19:24 80 07/22/17 16:00 90 07/22/17 16:00 97.5 78 20 156/74 99 Room Air 07/22/17 12:00 97.7 86 20 140/71 97 Nasal Cannula 2.0 07/22/17 12:00 85 Intake and Output 07/23/17 07/24/17 19:00 07:00 # Voids 1 Laboratory Tests Test 07/23/17 06:20 White Blood Count 7.4 K/UL (4.8-10.8) Red Blood Count 3.98 M/UL (4.20-5.40) L Hemoglobin 13.1 G/DL (12.0-16.0) Hematocrit 41.6 % (37.0-47.0) Mean Corpuscular Volume 105 FL (80-99) H Mean Corpuscular Hemoglobin 32.8 PG (27.0-31.0) H Mean Corpuscular Hemoglobin Concent 31.4 G/DL (32.0-36.0) L Red Cell Distribution Width 15.8 % (11.6-14.8) H Platelet Count 131 K/UL (150-450) L Mean Platelet Volume 9.9 FL (6.5-10.1) Neutrophils (%) (Auto) % (45.0-75.0) Lymphocytes (%) (Auto) % (20.0-45.0) Monocytes (%) (Auto) % (1.0-10.0) Eosinophils (%) (Auto) % (0.0-3.0) Basophils (%) (Auto) % (0.0-2.0) Differential Total Cells Counted 100 Neutrophils % (Manual) 64 % (45-75) Lymphocytes % (Manual) 18 % (20-45) L Monocytes % (Manual) 14 % (1-10) H Eosinophils % (Manual) 4 % (0-3) H Basophils % (Manual) 0 % (0-2) Band Neutrophils 0 % (0-8) Platelet Estimate Adequate Platelet Morphology Normal Anisocytosis 1+ Macrocytosis 1+ Prothrombin Time 11.5 SEC (9.30-11.50) Prothromb Time International Ratio 1.1 (0.9-1.1) Activated Partial Thromboplast Time 28 SEC (23-33) Sodium Level 147 MMOL/L (136-145) H Potassium Level 4.1 MMOL/L (3.5-5.1) Chloride Level 108 MMOL/L (98-107) H Carbon Dioxide Level 31 MMOL/L (21-32) Anion Gap 8 mmol/L (5-15) Blood Urea Nitrogen 17 mg/dL (7-18) Creatinine 1.4 MG/DL (0.55-1.30) H Estimat Glomerular Filtration Rate mL/min (>60) Glucose Level 126 MG/DL (74-106) H Calcium Level 8.9 MG/DL (8.5-10.1) Total Bilirubin 0.6 MG/DL (0.2-1.0) Aspartate Amino Transf (AST/SGOT) 16 U/L (15-37) Alanine Aminotransferase (ALT/SGPT) 7 U/L (12-78) L Alkaline Phosphatase 84 U/L (46-116) Total Protein 6.9 G/DL (6.4-8.2) Albumin 2.2 G/DL (3.4-5.0) L Globulin 4.7 g/dL Albumin/Globulin Ratio 0.5 (1.0-2.7) L Amylase Level 17 U/L (25-115) L Lipase 45 U/L (73-393) L Vitamin B12 Level 587 PG/ML (193-986) Folate 7.9 NG/ML (3.1-17.5) Height (Feet): 5 Height (Inches): 6.00 Weight (Pounds): 214 General Appearance: WD/WN, no apparent distress, alert Cardiovascular: normal rate Respiratory/Chest: normal breath sounds, no respiratory distress Abdominal Exam: normal bowel sounds, non tender, soft, distended, ascites Extremities: non-tender Julienne Jauregui N.P. Jul 23, 2017 10:45 ISIDRO SCHWARTZ Jul 26, 2017 08:38
--- NOTE | 2017-07-23 11:10 | Diagnostic Imaging Report ---
Indication: Abdominal pain and distention, recurrent ascites, pancreatic head mass per patient Technique: Abarca-scale and duplex images of the upper abdomen were obtained Comparison: 11/28/[address] chest abdomen pelvis dated 11/26/2016 Findings: Gallbladder demonstrates sludge. No stones, wall thickening, nor pericholecystic fluid. Common bile duct measures 5 mm in diameter. No intrahepatic biliary ductal dilatation. Liver demonstrates coarsened echogenicity, surface micro-nodularity. There is questionably a 5.8 x 5.2 cm mass in the hepatic lobe There is ascites fluid Portal vein and hepatic veins are patent. Varices are seen within the cary hepatis. Not well visualized. No gross abnormalities visualized segments. Spleen is unremarkable. Left kidney measures 8.9 cm in length. Right kidney measures 10 cm length. Both kidneys demonstrate normal echogenicity. There is no hydronephrosis. . Previously described calcified left renal mass is not evident currently . Non-aneurysmal abdominal aorta . Impression: Gallbladder sludge. Negative for gallstones or dilated ducts Hepatic surface nodularity and irregular echogenicity, may reflect cirrhotic changes. Questionable 5.2 x 5.8 cm left lobe liver mass. 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 Correlate with any history of prior resection calcified mass in the upper. Poorly visualized pancreas, pancreatic mass reported by patient not visualized
[2017-07-23] MEDS ORDERED: ZOFRAN4 M1 ORAL (12:28)
[2017-07-23] MEDS ORDERED: DURAGESIC1 E3 TOPIC (12:29)
[2017-07-23] MEDS ORDERED: NORCO 10-325 T1 EACH ORAL (12:31)
[2017-07-23] MEDS: Norco 10mg/325mg tab ORAL PRN (12:36)
--- NOTE | 2017-07-23 12:44 | Pulmonology Progress Note ---
Assessment/Plan Problems: (1) Pancreatic cancer (2) Epigastric abdominal pain Assessment/Plan trial of fentanyl patch palliative care fleet enema Subjective ROS Limited/Unobtainable: No Constitutional: Reports: no symptoms HEENT: Repors: no symptoms Allergies: Coded Allergies: No Known Allergies (Verified , 11/08/08) Objective Last 24 Hour Vital Signs Date Time Temp Pulse Resp B/P (MAP) Pulse Ox O2 Delivery O2 Flow Rate FiO2 07/23/17 11:52 98.8 87 18 134/74 98 Room Air 07/23/17 08:41 98.6 93 18 141/70 99 Room Air 07/23/17 08:02 Nasal Cannula 2.0 28 07/23/17 08:01 99 Nasal Cannula 2.0 28 07/23/17 04:51 97.9 84 20 133/71 97 Room Air 84 07/23/17 03:42 91 07/23/17 00:53 97.7 89 16 117/73 94 Room Air 07/23/17 00:12 88 07/23/17 00:00 97.7 89 16 117/73 94 Room Air 07/22/17 22:20 88 135/67 07/22/17 20:01 99 Nasal Cannula 2.0 28 07/22/17 20:01 Nasal Cannula 2.0 28 07/22/17 20:00 98.2 88 16 135/67 97 Nasal Cannula 2.0 07/22/17 19:24 80 07/22/17 16:00 90 07/22/17 16:00 97.5 78 20 156/74 99 Room Air Intake and Output 07/23/17 07/24/17 19:00 07:00 # Voids 1 General Appearance: WD/WN HEENT: normocephalic Respiratory/Chest: chest wall non-tender, normal breath sounds Breasts: no masses Cardiovascular: normal peripheral pulses Abdomen: normal bowel sounds, soft, non tender Skin: no rash Laboratory Tests 07/23/17 06:20: White Blood Count 7.4, Red Blood Count 3.98L, Hemoglobin 13.1, Hematocrit 41.6, Mean Corpuscular Volume 105H, Mean Corpuscular Hemoglobin 32.8H, Mean Corpuscular Hemoglobin Concent 31.4L, Red Cell Distribution Width 15.8H, Platelet Count 131L, Mean Platelet Volume 9.9, Neutrophils (%) (Auto) , Lymphocytes (%) (Auto) , Monocytes (%) (Auto) , Eosinophils (%) (Auto) , Basophils (%) (Auto) , Differential Total Cells Counted 100, Neutrophils % ( Manual) 64, Lymphocytes % (Manual) 18L, Monocytes % (Manual) 14H, Eosinophils % (Manual) 4H, Basophils % (Manual) 0, Band Neutrophils 0, Platelet Estimate Adequate, Platelet Morphology Normal, Anisocytosis 1+, Macrocytosis 1+, Prothrombin Time 11.5, Prothromb Time International Ratio 1.1, Activated Partial Thromboplast Time 28, Sodium Level 147H, Potassium Level 4.1, Chloride Level 108H, Carbon Dioxide Level 31, Anion Gap 8, Blood Urea Nitrogen 17, Creatinine 1.4H, Estimat Glomerular Filtration Rate , Glucose Level 126H, Calcium Level 8.9, Total Bilirubin 0.6, Aspartate Amino Transf (AST/SGOT) 16, Alanine Aminotransferase (ALT/SGPT) 7L, Alkaline Phosphatase 84, Total Protein 6.9, Albumin 2.2L, Globulin 4.7, Albumin/Globulin Ratio 0.5L, Amylase Level 17L , Lipase 45L, Vitamin B12 Level 587, Folate 7.9 Current Medications Medications (Trade) Dose Ordered Sig/Demetrio Route PRN Reason Start Time Stop Time Status Last Admin Dose Admin Acetaminophen (Tylenol) 650 mg Q4H PRN ORAL T>100.5 07/22/17 06:45 08/21/17 06:44 Acetaminophen/ Hydrocodone Bitart ([place] 10/325) 1 ea Q4H PRN ORAL Pain 4-10 07/22/17 16:00 07/29/17 15:59 07/23/17 12:36 Al Hydroxide/Mg Hydroxide (Mylanta II) 30 ml Q6H PRN ORAL dyspepsia 07/22/17 06:45 08/21/17 06:44 Amlodipine Besylate (Norvasc) 5 mg Q12HR ORAL 07/22/17 09:00 08/21/17 08:59 07/22/17 22:20 Dextrose (Dextrose 50%) STAT PRN IV Hypoglycemia 07/22/17 06:45 08/21/17 06:44 Dextrose/Sodium Chloride 1,000 ml @ 100 mls/hr Q10H IV 07/22/17 07:00 08/21/17 06:59 07/22/17 22:26 Diphenhydramine HCl (Benadryl) 25 mg Q6H PRN ORAL Itching/Pruritis 07/22/17 06:45 08/21/17 06:44 Fentanyl (Duragesic) 1 patch Q72H TDERMAL 07/23/17 12:45 07/30/17 12:44 UNV Miscellaneous Medication (fentaNYL Destruction) 1 ea Q72H MISC 07/23/17 12:45 08/22/17 12:44 UNV Morphine Sulfate (Morphine Sulfate) 2 mg Q4H PRN IVP SEVERE BREAKTHROUGH PAIN 07/22/17 13:15 07/29/17 13:14 07/23/17 07:59 Naloxone HCl (Narcan) 0.1 mg PRN IV Sedation scale 3 or 4 07/23/17 12:45 UNV Nitroglycerin (Ntg) 0.4 mg Q5M X 3 DOSES PRN SL Prn Chest Pain 07/22/17 06:45 08/21/17 06:44 Ondansetron HCl (Zofran) 4 mg Q6H PRN IVP Nausea & Vomiting 07/22/17 06:45 08/21/17 06:44 07/23/17 12:34 Polyethylene Glycol (Miralax) 17 gm HSPRN PRN ORAL Constipation 07/22/17 21:00 08/21/17 20:59 Temazepam (Restoril) 15 mg HSPRN PRN ORAL Insomnia 07/22/17 21:00 07/29/17 20:59 ELÍAS ALFREDO Jul 23, 2017 12:44
[2017-07-23] MEDS: D5NS 1,000 ML IV SCH ×2 (13:00→21:56)
[2017-07-23] MEDS ORDERED: Naloxone 0.4mg/ml Inj IV PRN (13:24)
[2017-07-23] MEDS ORDERED: Fleet's Enema 133ml RECTAL ONE (14:00)
[2017-07-23] MEDS ORDERED: fentaNYL Destruction MISC SCH (15:00)
[2017-07-24] VITALS: BP 148/65
[2017-07-24 04:00] VITALS: BP_SYST 140; BP_SYST 143; BP_DIAS 86; BP_DIAS 89
[2017-07-24 05:37] LABS: MEAN CORPUSCULAR HEMOGLOBIN 33.1 PG (27.0-31.0); MEAN CORPUSCULAR HGB CONC 31.9 G/DL (32.0-36.0); MEAN CORPUSCULAR VOLUME 104 FL (80-99); PLATELET COUNT 144 K/UL (150-450); RED BLOOD COUNT 3.76 M/UL (4.20-5.40); RED CELL DISTRIBUTION WIDTH 15.7 % (11.6-14.8); WHITE BLOOD COUNT 7.1 K/UL (4.8-10.8)
[2017-07-24 05:47] LABS: ANION GAP 7 mmol/L (5-15); CALCIUM 8.9 MG/DL (8.5-10.1); CARBON DIOXIDE 28 MMOL/L (21-32); CHLORIDE 109 MMOL/L (98-107); CREATININE 1.3 MG/DL (0.55-1.30); POTASSIUM 3.8 MMOL/L (3.5-5.1); SODIUM 144 MMOL/L (136-145)
[2017-07-24 07:55] VITALS: BP 156/83
[2017-07-24] MEDS: D5NS 1,000 ML IV SCH (09:00)
[2017-07-24] MEDS ORDERED: D5NS 1000ml IV ONE (09:30)
[2017-07-24 10:25] LABS: BAND NEUTROPHILS % (MANUAL) 0 % (0-8); BASOPHILS % (MANUAL) 0 % (0-2); EOSINOPHILS % (MANUAL) 7 % (0-3); LYMPHOCYTES % (MANUAL) 14 % (20-45); NEUTROPHILS % (MANUAL) 50 % (45-75); PLATELET ESTIMATE DECREASED; PLATELET MORPHOLOGY NORMAL; TOTAL CELLS COUNTED 100
[2017-07-24 12:00] VITALS: BP 138/71
[2017-07-24] MEDS: Norco 10mg/325mg tab ORAL PRN (15:08)
--- NOTE | 2017-07-24 16:00 | Pulmonology Progress Note ---
Assessment/Plan Problems: (1) Pancreatic cancer (2) Epigastric abdominal pain Assessment/Plan fentanyl patch worked very well palliative care fleet enema worked, patient emptied her bowel dc home with hospice Subjective ROS Limited/Unobtainable: No Constitutional: Reports: no symptoms HEENT: Repors: no symptoms Respiratory: Reports: no symptoms Allergies: Coded Allergies: No Known Allergies (Verified , 11/08/08) Objective Last 24 Hour Vital Signs Date Time Temp Pulse Resp B/P (MAP) Pulse Ox O2 Delivery O2 Flow Rate FiO2 07/24/17 12:00 84 07/24/17 12:00 98.3 86 20 138/71 99 Room Air 07/24/17 08:00 94 07/24/17 07:55 98.2 100 18 156/83 99 Room Air 07/24/17 04:00 97.2 92 20 143/86 95 Room Air 07/24/17 03:43 93 07/24/17 00:00 98.1 85 20 148/65 97 Room Air 07/24/17 00:00 84 07/23/17 21:55 93 112/68 07/23/17 20:00 98.2 82 20 112/68 96 Room Air 07/23/17 20:00 103 07/23/17 19:00 98 Room Air 21 07/23/17 19:00 Nasal Cannula 2.0 28 07/23/17 16:00 89 Intake and Output 07/24/17 07/25/17 19:00 07:00 Intake Total 360 ml Balance 360 ml Intake Oral 360 ml # Voids 1 General Appearance: WD/WN HEENT: normocephalic, atraumatic Respiratory/Chest: chest wall non-tender, lungs clear Breasts: no masses Cardiovascular: normal peripheral pulses Abdomen: normal bowel sounds, soft, non tender Extremities: no cyanosis Skin: no rash 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 Microbiology Date/Time Source Procedure Growth Status 07/22/17 02:45 Blood Blood Culture - Preliminary NO GROWTH AFTER 24 HOURS Resulted 07/22/17 02:35 Blood Blood Culture - Preliminary NO GROWTH AFTER 24 HOURS Resulted Laboratory Tests 07/24/17 04:10: White Blood Count 7.1, Red Blood Count 3.76L, Hemoglobin 12.4, Hematocrit 39.0, Mean Corpuscular Volume 104H, Mean Corpuscular Hemoglobin 33.1H, Mean Corpuscular Hemoglobin Concent 31.9L, Red Cell Distribution Width 15.7H, Platelet Count 144L, Mean Platelet Volume 11.0H, Neutrophils (%) (Auto) , Lymphocytes (%) (Auto) , Monocytes (%) (Auto) , Eosinophils (%) (Auto) , Basophils (%) (Auto) , Differential Total Cells Counted 100, Neutrophils % ( Manual) 50, Lymphocytes % (Manual) 14L, Monocytes % (Manual) 29H, Eosinophils % (Manual) 7H, Basophils % (Manual) 0, Band Neutrophils 0, Platelet Estimate DecreasedL, Platelet Morphology Normal, Sodium Level 144, Potassium Level 3.8, Chloride Level 109H, Carbon Dioxide Level 28, Anion Gap 7, Blood Urea Nitrogen 19H, Creatinine 1.3, Estimat Glomerular Filtration Rate , Glucose Level 104, Calcium Level 8.9 Current Medications Medications (Trade) Dose Ordered Sig/Demetrio Route PRN Reason Start Time Stop Time Status Last Admin Dose Admin Acetaminophen (Tylenol) 650 mg Q4H PRN ORAL T>100.5 07/22/17 06:45 08/21/17 06:44 Acetaminophen/ Hydrocodone Bitart ([place] 10) 1 ea Q4H PRN ORAL Pain 4-10 07/22/17 16:00 07/29/17 15:59 07/24/17 15:08 Al Hydroxide/Mg Hydroxide (Mylanta II) 30 ml Q6H PRN ORAL dyspepsia 07/22/17 06:45 08/21/17 06:44 Amlodipine Besylate (Norvasc) 5 mg Q12HR ORAL 07/22/17 09:00 08/21/17 08:59 07/23/17 21:55 Dextrose (Dextrose 50%) STAT PRN IV Hypoglycemia 07/22/17 06:45 08/21/17 06:44 Dextrose/Sodium Chloride 1,000 ml @ 100 mls/hr Q10H IV 07/22/17 07:00 08/21/17 06:59 07/24/17 09:00 Diphenhydramine HCl (Benadryl) 25 mg Q6H PRN ORAL Itching/Pruritis 07/22/17 06:45 08/21/17 06:44 Fentanyl (Duragesic) 1 patch Q72H TDERMAL 07/23/17 15:00 07/30/17 14:59 07/23/17 14:36 Miscellaneous Medication (fentaNYL Destruction) 1 ea Q72H MISC 07/23/17 15:00 08/22/17 14:59 Morphine Sulfate (Morphine Sulfate) 2 mg Q4H PRN IVP SEVERE BREAKTHROUGH PAIN 07/22/17 13:15 07/29/17 13:14 07/23/17 07:59 Naloxone HCl (Narcan) 0.1 mg PRN IV Sedation scale 3 or 4 07/23/17 13:24 07/28/17 13:23 Nitroglycerin (Ntg) 0.4 mg Q5M X 3 DOSES PRN SL Prn Chest Pain 07/22/17 06:45 08/21/17 06:44 Ondansetron HCl (Zofran) 4 mg Q6H PRN IVP Nausea & Vomiting 07/22/17 06:45 08/21/17 06:44 07/24/17 09:39 Polyethylene Glycol (Miralax) 17 gm HSPRN PRN ORAL Constipation 07/22/17 21:00 08/21/17 20:59 Temazepam (Restoril) 15 mg HSPRN PRN ORAL Insomnia 07/22/17 21:00 07/29/17 20:59 ELÍAS ALFREDO Jul 24, 2017 16:00
--- NOTE | 2017-07-24 16:04 | General Progress Note ---
Assessment/Plan Assessment/Plan Assessment - advanced pancreatic cancer - abdominal distension - abdominal pain - h/o ascites Recommendations - po as tolerated - pain control - comfort measures - poor prognosis Subjective Allergies: Coded Allergies: No Known Allergies (Verified , 11/08/08) Subjective on clears c/o abd pain d/w DTR at bedside Objective Last 24 Hour Vital Signs Date Time Temp Pulse Resp B/P (MAP) Pulse Ox O2 Delivery O2 Flow Rate FiO2 07/24/17 12:00 84 07/24/17 12:00 98.3 86 20 138/71 99 Room Air 07/24/17 08:00 94 07/24/17 07:55 98.2 100 18 156/83 99 Room Air 07/24/17 04:00 97.2 92 20 143/86 95 Room Air 07/24/17 03:43 93 07/24/17 00:00 98.1 85 20 148/65 97 Room Air 07/24/17 00:00 84 07/23/17 21:55 93 112/68 07/23/17 20:00 98.2 82 20 112/68 96 Room Air 07/23/17 20:00 103 07/23/17 19:00 98 Room Air 21 07/23/17 19:00 Nasal Cannula 2.0 28 Intake and Output 07/24/17 07/25/17 19:00 07:00 Intake Total 360 ml Balance 360 ml Intake Oral 360 ml # Voids 1 Laboratory Tests 07/24/17 04:10: White Blood Count 7.1, Red Blood Count 3.76L, Hemoglobin 12.4, Hematocrit 39.0, Mean Corpuscular Volume 104H, Mean Corpuscular Hemoglobin 33.1H, Mean Corpuscular Hemoglobin Concent 31.9L, Red Cell Distribution Width 15.7H, Platelet Count 144L, Mean Platelet Volume 11.0H, Neutrophils (%) (Auto) , Lymphocytes (%) (Auto) , Monocytes (%) (Auto) , Eosinophils (%) (Auto) , Basophils (%) (Auto) , Differential Total Cells Counted 100, Neutrophils % ( Manual) 50, Lymphocytes % (Manual) 14L, Monocytes % (Manual) 29H, Eosinophils % (Manual) 7H, Basophils % (Manual) 0, Band Neutrophils 0, Platelet Estimate DecreasedL, Platelet Morphology Normal, Sodium Level 144, Potassium Level 3.8, Chloride Level 109H, Carbon Dioxide Level 28, Anion Gap 7, Blood Urea Nitrogen 19H, Creatinine 1.3, Estimat Glomerular Filtration Rate , Glucose Level 104, Calcium Level 8.9 Height (Feet): 5 Height (Inches): 6.00 Weight (Pounds): 214 Objective WDWN NCAT supple CTA RRR soft distended , TTP no edema BEAR XIE Jul 24, 2017 16:04
--- NOTE | 2017-07-25 09:48 | Diagnostic Imaging Report ---
APPROVED REPORT CPT Code: 87412 Present Symptoms Comments: R/O DVT BILATERAL: Imaging reveals a patent deep venous system bilaterally. There is no evidence of thrombus within the femoral, popliteal or tibial segments. The greater saphenous veins are also within normal limits. Doppler indicates normal spontaneous flow within these segments.
--- NOTE | 2017-07-26 12:10 | Cardiology Report ---
APPROVED REPORT EKG Measurement Heart [id number] Sinus tachycardia with occasional premature ventricular complexes Possible Left atrial enlargement Left ventricular hypertrophy with repolarization abnormality Abnormal ECG
--- NOTE | 2017-07-26 12:24 | Discharge Summary ---
Discharge Summary Hospital Course Date of Admission Jul 22, 2017 at 03:42 Date of Discharge Jul 24, 2017 at 16:00 Admitting Diagnosis UPPER GI BLEED, PANCREATIC CANCER HPI Brooklyn Norris is a 81 year old female who was admitted on Jul 22, 2017 at 03:42 for Upper Gi Bleed, Pancreatic Cancer Hospital Course dc summary #[id number] Discharge Medications New Medications: Fentanyl (Fentanyl) 1 Each Patch.td72 1 PATCH TOPIC EVERY 72 HOURS for 30 Days, PATCH Hydrocodone Bit/Acetaminophen 10-325* ([place] 10-325*) 1 Each Tablet 1 TAB ORAL Q6H PRN, #10 TAB 0 Refills PRN PAIN Ondansetron (Zofran) 4 Mg Tablet 4 MG ORAL Q6H PRN for 10 Days, TAB Continued Medications: Amlodipine Besylate (Norvasc) 5 Mg Tablet 5 MG ORAL Q12HR for 30 Days, TAB Discharge Condition Upon Discharge: stable Discharge Disposition Patient was discharged to Home with hospice services Discharge Diagnoses: Discharge Instructions Discharge Instructions Special Instructions I have been assigned to complete a D/C Summary on this account. I was not involved in the patient management Antoinette Mcqueen NP ([place]) Jul 26, 2017 12:24
--- NOTE | 2017-07-27 09:31 | Discharge Summary 2 SIG ---
DATE OF ADMISSION: 07/22/2017 DATE OF DISCHARGE: 07/24/2017 REASON FOR ADMISSION: 81-year-old female with history of recently diagnosed pancreatic cancer, status post recent paracentesis with removal of two liters of the ascitic fluid. The patient initially felt very weak after procedure, however, later the abdominal pain started and became intractable/uncontrolled. The patient also had few episodes of hematemesis. 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 The patient was admitted with diagnoses of pancreatic mass and intractable epigastric abdominal pain. HOSPITAL STAY: The patient was admitted. GI consult was requested. Per GI, recommended stool OB to rule out GI bleeding, which was not done since the patient did not have a bowel movement until later. Hemoglobin and hematocrit were closely monitored and remained at the baseline. B12 and folate levels were within normal limits. The patient was started on H2 [place]. Full liquid diet started as tolerated. Per GI, the patient had a poor prognosis for recovery . GI recommended palliative care. Bowel regimen was instituted, which was successful. Venous duplex of bilateral lower extremities was negative. Family decided for palliative care. Hospice evaluation was initiated. The patient was discharged home with hospice services. FINAL DIAGNOSES: 1. Advanced pancreatic cancer. 2. Intractable epigastric abdominal pain. 3. Hypoalbuminemia. 4. Alkaline phosphatase elevation. 5. Palliative care. DISCHARGE MEDICATIONS: see medications reconciliation list DISCHARGE INSTRUCTIONS: Patient was discharged home with hospice services. Ming Xie M.D. I have been assigned to dictate discharge summary on this account and I was not involved in the patient's management. Antoinette JulesGarnet Health Medical CenterFélix N.P. DR: Sonam JOB#: [id number] CC: [email or web address]
== END 2017-07-24 16:00 | disposition hospice, home (50) | DRG 281 ==
LOC: EDBD 02:24 → EMR 02:35 → 2E 03:42 → EDBEDREQ 04:34 → 3E 19:51 → 2E 19:52
DX: C25.9 Malignant neoplasm of pancreas, unspecified (principal); E88.09 Other disorders of plasma-protein metabolism, not elsewhere classified; R10.13 Epigastric pain; R74.8 Abnormal levels of other serum enzymes; I10 Essential (primary) hypertension; Z51.5 Encounter for palliative care; Z66 Do not resuscitate
CPT/HCPCS: 36415; 71010; 76700; 80048; 80053; 82150; 82550; 82553; 82607; 82746; 83605; 83690; 84484; 85007; 85025; 85610; 85730; 87040; 93005; 93970; 94760; 99285; J2405

== ENCOUNTER 2017-07-27 09:02 | Emergency (ER) | payer MEDICARE, MEDICAID ==
[~2017-07-27] VITALS: Ht 167.6 cm; Wt 97.1 kg
[~2017-07-27 09:02] MED LIST changes: +DURAGESIC1 E3 TOPIC; +NORCO 10-325 T1 EACH ORAL; +UNOBMED; +ZOFRAN4 M1 ORAL
[2017-07-27 10:26] LABS: EOSINOPHILS % (AUTO) 3.6 % (0.0-3.0); LYMPHOCYTES % (AUTO) 15.9 % (20.0-45.0); MEAN CORPUSCULAR HEMOGLOBIN 33.8 PG (27.0-31.0); MEAN CORPUSCULAR HGB CONC 32.5 G/DL (32.0-36.0); MEAN CORPUSCULAR VOLUME 104 FL (80-99); MEAN PLATELET VOLUME 8.3 FL (6.5-10.1); MONOCYTES % (AUTO) 14.4 % (1.0-10.0); NEUTROPHILS % (AUTO) 65.1 % (45.0-75.0); PLATELET COUNT 152 K/UL (150-450); RED BLOOD COUNT 3.89 M/UL (4.20-5.40); RED CELL DISTRIBUTION WIDTH 15.2 % (11.6-14.8); WHITE BLOOD COUNT 8.4 K/UL (4.8-10.8)
[2017-07-27 10:30] VITALS: BP_SYST 115; BP_SYST 155; BP_DIAS 84
[2017-07-27 10:36] LABS: INR 1.1 (0.9-1.1); PROTHROMBIN TIME 11.4 SEC (9.30-11.50)
[2017-07-27 11:08] LABS: ALANINE AMINOTRANSFERASE 10 U/L (12-78); ALBUMIN/GLOBULIN RATIO 0.4 (1.0-2.7); ANION GAP 11 mmol/L (5-15); ASPARTATE AMINO TRANSFERASE 30 U/L (15-37); CARBON DIOXIDE 26 MMOL/L (21-32); CHLORIDE 106 MMOL/L (98-107); CREATININE 1.1 MG/DL (0.55-1.30); POTASSIUM 4.3 MMOL/L (3.5-5.1); SODIUM 142 MMOL/L (136-145); TOTAL PROTEIN 7.5 G/DL (6.4-8.2)
[2017-07-27 12:30] VITALS: BP 119/74
[2017-07-27 12:40] VITALS: BP 119/74
--- NOTE | 2017-07-27 15:10 | Emergency Room Report ---
History of Present Illness General Chief Complaint: Abdominal Pain Source: Patient, Family Member Present Illness HPI 81-year-old female presents ED for evaluation. Patient presents with abdominal distention. Daughter at bedside states that patient is here to have her "belly tapped". Patient has history of cancer and ascites. Patient was discharged from here 3 days ago. Patient states pain is 5/10, throbbing, nonradiating. Denies fevers or chills. Denies nausea or vomiting. No other aggravating relieving factors. Denies any other associated symptoms Allergies: Coded Allergies: No Known Allergies (Verified , 11/08/08) Patient History Past Medical History: HTN, other - pancreatic cancer Past Surgical History: none Pertinent Family History: none Social History: Denies: smoking, alcohol use, drug use Now: No Immunizations: UTD Reviewed Nursing Documentation: PMH: Agreed, PSxH: Agreed Nursing Documentation-PMH Hx Cardiac Problems: No Hx Hypertension: Yes Hx Cancer: Yes - Pancreatic cancer, stage 4 Hx Gastrointestinal Problems: No Hx Neurological Problems: No Review of Systems All Other Systems: negative except mentioned in HPI Physical Exam Vital Signs Date Time Temp Pulse Resp B/P (MAP) Pulse Ox O2 Delivery O2 Flow Rate FiO2 07/27/17 09:22 98.4 108 20 150/90 93 Room Air Sp02 EP Interpretation: reviewed, normal General Appearance: no apparent distress, alert, GCS 15, non-toxic Head: normocephalic, atraumatic Eyes: bilateral eye normal inspection, bilateral eye PERRL ENT: hearing grossly normal, normal pharynx, no angioedema, normal voice Neck: full range of motion, supple/symm/no masses Respiratory: chest non-tender, lungs clear, normal breath sounds, speaking full sentences Cardiovascular #1: regular rate, rhythm, no edema Cardiovascular #2: 2+ carotid (R), 2+ carotid (L), 2+ radial (R), 2+ radial (L) , 2+ dorsalis pedis (R), 2+ dorsalis pedis (L) Gastrointestinal: normal bowel sounds, soft, no guarding, no rebound, distended Rectal: deferred Genitourinary: normal inspection, no CVA tenderness Musculoskeletal: back normal, gait/station normal, normal range of motion, non- tender Neurologic: alert, oriented x3, responsive, motor strength/tone normal, sensory intact, speech normal Psychiatric: judgement/insight normal, memory normal, mood/affect normal, no suicidal/homicidal ideation Reflexes: 3+ bicep (R), 3+ bicep (L), 3+ tricep (R), 3+ tricep (L), 3+ knee (R) , 3+ knee (L) Skin: normal color, no rash, warm/dry, well hydrated Lymphatic: no adenopathy Medical Decision Making Diagnostic Impression: Primary Impression: Ascites Qualified Codes: R18.8 - Other ascites ER Course 81-year-old female presents ED for paracentesis. History of ascites Differential-SBP, ascites, SBO Patient placed on stretcher. After initial history and physical I ordered labs , US guided paracentesis Paracentesis completed and approximately 900 mL of fluid was pulled. Patient tolerated procedure without complication Diagnoses-ascites Stable and discharged to home. Followup with PMD. Return to ED if symptoms recur or worsen Labs Test 07/27/17 09:50 White Blood Count 8.4 K/UL (4.8-10.8) Red Blood Count 3.89 M/UL (4.20-5.40) Hemoglobin 13.1 G/DL (12.0-16.0) Hematocrit 40.5 % (37.0-47.0) Mean Corpuscular Volume 104 FL (80-99) Mean Corpuscular Hemoglobin 33.8 PG (27.0-31.0) Mean Corpuscular Hemoglobin Concent 32.5 G/DL (32.0-36.0) Red Cell Distribution Width 15.2 % (11.6-14.8) Platelet Count 152 K/UL (150-450) Mean Platelet Volume 8.3 FL (6.5-10.1) Neutrophils (%) (Auto) 65.1 % (45.0-75.0) Lymphocytes (%) (Auto) 15.9 % (20.0-45.0) Monocytes (%) (Auto) 14.4 % (1.0-10.0) Eosinophils (%) (Auto) 3.6 % (0.0-3.0) Basophils (%) (Auto) 1.0 % (0.0-2.0) Prothrombin Time 11.4 SEC (9.30-11.50) Prothromb Time International Ratio 1.1 (0.9-1.1) Activated Partial Thromboplast Time 23 SEC (23-33) Sodium Level 142 MMOL/L (136-145) Potassium Level 4.3 MMOL/L (3.5-5.1) Chloride Level 106 MMOL/L (98-107) Carbon Dioxide Level 26 MMOL/L (21-32) Anion Gap 11 mmol/L (5-15) Blood Urea Nitrogen 18 mg/dL (7-18) Creatinine 1.1 MG/DL (0.55-1.30) Estimat Glomerular Filtration Rate mL/min (>60) Glucose Level 105 MG/DL (74-106) Calcium Level 9.0 MG/DL (8.5-10.1) Total Bilirubin 0.8 MG/DL (0.2-1.0) Aspartate Amino Transf (AST/SGOT) 30 U/L (15-37) Alanine Aminotransferase (ALT/SGPT) 10 U/L (12-78) Alkaline Phosphatase 91 U/L (46-116) Total Protein 7.5 G/DL (6.4-8.2) Albumin 2.0 G/DL (3.4-5.0) Globulin 5.5 g/dL Albumin/Globulin Ratio 0.4 (1.0-2.7) Last Vital Signs Date Time Temp Pulse Resp B/P (MAP) Pulse Ox O2 Delivery O2 Flow Rate FiO2 07/27/17 10:30 96 22 155/84 97 Room Air 07/27/17 09:22 98.4 Status: improved Disposition: HOME, SELF-CARE Condition: Stable Patient Instructions: Abdominal or Pelvic Ultrasound, [id number] ADONIS CURTIS M.D. Jul 27, 2017 15:10
--- NOTE | 2017-07-27 16:13 | Diagnostic Imaging Report ---
Indications: Ascites Technique: Ultrasound used to localize optimal puncture site. Sterile prepping and draping right lower quad. Local anesthesia with 1% lidocaine. Under real-time ultrasound guidance, puncture peritoneal space using paracentesis needle. Stylet removed. Catheter placed to vacuum bottle suction. Total 0.9 liters of clear yellow fluid aspirated. Patient tolerated procedure well, without immediate complication. Findings: Followup sonography demonstrates complete resolution of peritoneal fluid. Impression: Successful ultrasound-guided paracentesis, yielding 0.9 liters of fluid
[2017-07-27 21:14] LABS: APPEARANCE, BODY FLUID HAZY; BD FL SOURCE PARACENTESIS; BD FL VOLUME 24 mL
[2017-07-27 21:15] LABS: BODY FLUID NUCLEATED CELLS 465 /CUMM; BODY FLUID RBC 435 /CUMM; MONONUCLEAR WBC 99 %; POLYMORPHONUCLEAR WBC 1 %
[2017-07-28 13:17] LABS: PROTEIN, BODY FLUID 3.2 g/dL (.)
[2017-07-29 07:50] LABS: COMMENT,BODY FLUID PATHOLOGIST COMMENT
== END 2017-07-27 12:40 | disposition home or self-care (01) ==
LOC: EMR 09:33
DX: R18.8 Other ascites (principal); I10 Essential (primary) hypertension; C25.9 Malignant neoplasm of pancreas, unspecified
CPT/HCPCS: 36415; 76942; 80053; 85025; 85610; 85730; 88104; 89051; 99284